=== PATIENT | male | born 1940 | race Caucasian/White ===

== ENCOUNTER → 2016-08-20 | Outpatient (CLI) | payer OTHER ==
[~2016-08-20] MED LIST: GADAVIST IV PRN; LEVO-217 PO; LISI1TAB3 PO; LOVASTATIN PO; MELO7.5T5 PO; MOME50SP5; MULT-506 PO; OMEG10007 PO; PRLSR20 PO; SNG10 PO
--- NOTE | 2016-08-20 09:57 | DIAGNOSTIC IMAGING REPORT ---
MRI brain combination BRAIN COMBO FOR IAC CLINICAL HISTORY: J32.9 Chronic sinusitis ASYMMETRIC RIGHT GREATER THAN LEFT SENSOR asymmetric hearing loss TECHNIQUE: Multi axial acquisition pre and post gadolinium enhancement COMPARISON STUDY: 07/17/2008 FINDINGS: Diffusion-weighted images are negative for an acute ischemic event. Signal characteristics of the cerebellar as well as cerebral hemispheres are unremarkable. 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 There are no new or interval findings. No significant postcontrast enhancement IMPRESSION: Negative study. No change from the prior exam. Electronically signed by: Willie Clark M.D. 08/20/2016 9:56 AM Dictated Date/Time: 08/20/2016 9:51 AM
== END | disposition home or self-care (01) ==
LOC: C.MRIBC 08:13
DX: J32.9 Chronic sinusitis, unspecified (principal)

== ENCOUNTER → 2016-09-01 | Outpatient (CLI) | payer OTHER ==
[~2016-09-01] VITALS: Ht 179.1 cm; Wt 103.5 kg
[~2016-09-01] MED LIST changes: -GADAVIST IV PRN
[2016-09-01 13:48] VITALS: BP 124/68; PULSE 68; Ht 179.1 cm; Wt 103.5 kg
== END | disposition home or self-care (01) ==
LOC: C.NEUR 12:50
PROVIDERS: ATTEND Internal Medicine Pulmonary Disease
DX: G47.33 Obstructive sleep apnea (adult) (pediatric) (principal)

== ENCOUNTER 2024-07-22 22:24 | Inpatient (IN) ==
[2024-07-22 23:45] LABS: Basophils # (auto) 0.04 K/uL (0.00-0.20); Basophils % (auto) 0.4 %; Eosinophils # (auto) 0.03 K/uL (0.00-0.50); Eosinophils % (auto) 0.3 %; Hemoglobin 11.3 g/dl (14.0-18.0); Immature Granulocytes # (auto) 0.07 K/uL (0.01-0.20); Immature Granulocytes % (auto) 0.7 %; Lymphocytes # (auto) 0.75 K/uL (1.20-3.40); Lymphocytes % (auto) 7.6 %; Mean Corpuscular Hemoglobin 27.2 pg (25.0-34.0); Mean Corpuscular Hgb Conc 32.3 g/dL (32.0-36.0); Mean Corpuscular Volume 84.1 fL (80.0-100.0); Mean Platelet Volume 9.9 fL (9.4-12.4); Monocytes # (auto) 0.68 K/uL (0.11-0.59); Monocytes % (auto) 6.9 %; Neutrophils # (auto) 8.29 K/uL (1.40-6.50); Neutrophils % (auto) 84.1 %; Platelet Count 323 K/uL (130-400); RDW Coefficient of Variation 13.9 % (11.5-14.5); RDW Standard Deviation 43.1 fL (36.4-46.3); Red Blood Count 4.16 M/uL (4.70-6.10); White Blood Count 9.86 K/ul (4.8-10.8)
[2024-07-22 23:50] LABS: Albumin Globulin Ratio 0.8 (0.9-2); Albumin Level 3.5 gm/dl (3.4-5.0); BUN Creatinine Ratio 19.7 (10-20); Bilirubin,Total 0.5 mg/dl (0.2-1.0); Calcium 9.6 mg/dl (8.6-10.3); Creatinine Clr Calc Pharmacy 49.9 ml/min; Globulin 4.3 gm/dl (2.5-4.0); Total Protein 7.8 gm/dl (6.0-8.3)
[2024-07-23 00:05] LABS: Thyroid Stimulating Hormone 4.058 uIu/ml (0.300-4.500)
[2024-07-23 00:15] LABS: Appearance Urine Clear (Clear); Bacteria Urine Automated None Seen (None Seen); Bilirubin Urine Negative (Negative); Blood Urine Negative (Negative); Color Urine Dark Yellow; Epithelial Cell Urine Auto 0-2 /hpf (0-2); Glucose Urine UA Negative (Negative); Ketones Urine Trace (Negative); Leukocyte Esterase Urine Negative (Negative); Mucus Urine Present (None Prsent); Nitrite Urine Negative (Negative); Protein Urine 3+ (Negative); RBC Urine Automated 0-2 /hpf (0-2); Specific Gravity Urine 1.022 (1.000-1.030); Urobilinogen Urine Negative (Negative); WBC Urine Automated 0-5 /hpf (0-5)
[2024-07-23] MEDS: SODIUM CHLORIDE 0.9% 500 ML IV ONE (00:36)
--- NOTE | 2024-07-23 00:48 | Emergency Department Note ---
Impression & Plan Generalized weakness, Altered mental status, Acute hyponatremia admit to the [facility] ED Provider Note NAME: PRADIP CUNNINGHAM AGE: 83 SEX: Male INFORMANT: Patient and his daughter ED PROVIDER(S): Brittney Solano DO CHIEF COMPLAINT: generalized weakness, confusion and right lower extremity weakness PLAN: Disposition: admit to the [facility] MEDICAL DECISION MAKING: this is an 83-year-old male patient who presents to the emergency department with multiple different complaints. the patient has been having episodes of generalized weakness over the past couple of weeks that seem to have increased in frequency. Family also describes episodes of confusion/altered mental status. The daughter explains that the patient was having some difficulty ambulating tonight and was dragging his right foot. This resolved at the house prior to coming to the emergency department. The patient did undergo MRI of the brain yesterday which was unremarkable except for a diagnosis of mastoiditis for which she was started on Augmentin and steroids. Laboratory studies revealed no leukocytosis. Hemoglobin was 11.3. Hematocrit was 35. Sodium was low at 130. Chloride 93. BUN 25 and creatinine was normal. Glucose was 186. Lyme testing was negative. Urinalysis revealed trace ketones with 3+ protein. Patient's neurological exam was unremarkable. He does have chronic right- sided facial droop from when he was a child. He did have some ulcerations noted on his tongue which are painful for him. His mental status seem to be clear at this time. I am concerned about the patient is generalized weakness and his risk of falling. This may be secondary to the drop in sodium. I discussed the case with the [facility]ist and they will evaluate for further inpatient care. Care/management discussed with: security developer and [facility] Triage Nursing notes: reviewed and agree with them. Vital Signs: reviewed and remarkable for Hypertension Additional History obtained from: patient's and daughter who are at the bedside Chronic Medical/Social Conditions affecting care: Parkinson's-like symptoms diagnosed by neurology sometime ago; recently diagnosed mastoiditis for which the patient is taking Augmentin and steroids Prior/ Outside/ External records reviewed: reviewed recent MRI of the brain which was performed 2 days ago and diagnosed mastoiditis Differential Diagnosis: Lyme disease, dehydration, hyponatremia, intracranial process, seizure Diagnostics, independently interpreted by me: ECG: normal sinus rhythm at a rate of 69 with PACs. There is no ST segment elevation or signs of ischemia. There is no ectopy. Cardiac Monitoring: normal sinus rhythm at a rate of 86 HPI: 83 year old Male arrives for evaluation of altered mental status and weakness. he patient has been having episodes of generalized weakness over the past couple of weeks that seem to have increased in frequency. Family also describes episodes of confusion/altered mental status. The daughter explains that the patient was having some difficulty ambulating tonight and was dragging his right foot. This resolved at the house prior to coming to the emergency department. The patient did undergo MRI of the brain yesterday which was unremarkable except for a diagnosis of mastoiditis for which she was started on Augmentin and steroids. PAST MEDICAL HISTORY: See Below, PAST SURGICAL HISTORY: See Below, SOCIAL HISTORY: See Below, HOME MEDICATIONS: see list ALLERGIES: see list VITALS: See Below PHYSICAL EXAMINATION: HEENT: Head - normocephalic and atraumatic. Pupils are equal, round, and reactive to light. Extraocular eye muscles are intact and sclera are anicteric. Ears - bilaterally patent canals with noninjected tympanic membranes and no evidence of hemotympanum. Nose - moist nasal mucosa without discharge. Mouth - moist buccal mucosa. Oropharynx is nonerythematous and there is no tonsillar exudate or edema noted. There were ulcerations noted on the patient's tongue. No obvious evidence of thrush. Neck: Supple; no JVD, nuchal rigidity, cervical lymphadenopathy, or auscultated bruits. Heart: Regular rate and rhythm. There is a normal S1 and S2 with no murmurs, clicks, or gallops appreciated. Lungs: Clear to auscultation bilaterally with no wheezes, rales, or rhonchi. Abdomen: Soft, completely nontender, nondistended, with good bowel sounds. There are no palpable pulsatile masses or hepatosplenomegaly. There is no guarding, rigidity, or rebound noted. Extremities: No evidence of cyanosis, clubbing, or edema. There are easily palpable peripheral pulses. Neuro:The patient is awake and alert, oriented to day, time, and place. Muscle strength is 5/5 in all 4 extremities. The patient has equal sustainable development policy analyst strength and equal pedal push and pull. There are no cerebellar signs. Emergency Department course: Pt Was evaluated in room B12. A complete history and physical was performed. IV lock was initiated and labs were drawn as above. Order was placed for continuous cardiac monitoring. The patient was in a normal sinus rhythm at a rate of 86. A twelve-lead EKG was obtained as described above. A urine was obtained and showed no signs of infection. The patient was given IV normal saline solution. I discussed the case with the [facility] Hospitalist and they will evaluate for further inpatient care. Past Med/Surg History Problem List (Updated 07/23/24 @ 08:17 by Brittney Solano DO) Acute hyponatremia (Acute) Altered mental status (Acute) Generalized weakness (Acute) Proteinuria Generalized weakness Dysarthria Parkinsonism Chronic sinusitis, unspecified (Chronic) Vascular parkinsonism Cerebrovascular disease Headache Presbylarynges (Chronic) Urinary symptom or sign Chronic serous otitis media Obstructive sleep apnea Allergic rhinitis Perforated nasal septum BPH (benign prostatic hyperplasia) Enlarged prostate with lower urinary tract symptoms (LUTS) (Acute) Nocturnal hypoxemia Hypertension Skin cancer Dysfunction of left eustachian tube Sensorineural hearing loss (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 Gait disturbance Diabetic nephropathy Hypovitaminosis D Mixed hyperlipidemia due to type 2 diabetes mellitus Weight disorder Memory loss Mild cognitive impairment Medical History ETD (eustachian tube dysfunction) Dysfunction of right eustachian tube Hallux valgus (acquired), left foot Acquired hallux valgus of right foot Hammertoe of left foot Acquired hammer toe of right foot Diabetes mellitus with diabetic polyneuropathy Surgical History S/P cataract surgery History of transurethral resection of prostate History of appendectomy Myringotomy tube status S/P T&A (status post tonsillectomy and adenoidectomy) History of uvulopalatopharyngoplasty H/O sinus surgery History of prostate surgery H/O shoulder surgery Family History Mother Rheumatic fever Heart disease Heart murmur Father Cerebral artery occlusion Brother Hearing loss Heart murmur Lung disease Other Coronary heart disease No family history of adverse response to anesthesia No family history of bleeding disorder Social History Smoking Status: Never smoker Hx Alcohol Use: No Hx Substance Use: No Preferred Language: Lithuanian Hearing Ability: Hard of Hearing Rock Wool Insulator Required: No Beliefs That Will Affect Care: Orthodox marital status: Current Living Situation: Spouse current occupational status: retired Other Information That Helps Us Care for You: No ([employer]LE[employer]) Feels Safe at Home: Yes Assistive Devices: Glasses, Hearing Aid - Bilateral and Walker Allergies Allergies Allergy/AdvReac Type Severity Reaction Status Date / Time house dust mite Allergy Verified 07/15/24 15:33 No Known Drug Allergies Allergy Verified 07/15/24 15:33 tree and shrub pollen Allergy Verified 07/15/24 15:33 Home Meds Home Medications Medication Instructions Recorded Confirmed aspirin 81 mg tablet,delayed 81 mg PO DAILY 03/01/19 07/23/24 release ketoconazole 2 % topical cream 1 applic topical DAILY PRN Skin 09/24/21 07/23/24 Irritation multivitamin (Multiple Vitamins 1 tab PO DAILY 09/24/21 07/23/24 tablet) lisinopril 10 mg tablet 10 mg PO DAILY 09/27/21 07/23/24 fluticasone propionate 50 1 spray intranasal DAILY PRN 09/12/22 07/23/24 mcg/actuation nasal Congestion spray,suspension sitagliptin phosphate 50 mg tablet 50 mg PO DAILY 02/02/24 07/23/24 (Januvia) amoxicillin-pot clavulanate 1 dose PO BID 07/15/24 07/23/24 [Augmentin] famotidine 40 mg tablet 40 mg PO HS 07/23/24 07/23/24 omega-3 fatty acids 1,000 mg 2,000 mg PO DAILY 07/23/24 07/23/24 capsule Previous Rx's Medication Instructions Recorded donepezil 10 mg tablet 10 mg PO HS #90 tabs 03/07/24 ipratropium bromide 42 mcg (0.06 2 spray intranasal TID #15 mL 05/12/24 %) nasal spray azelastine 137 mcg (0.1 %) nasal 2 spray intranasal BID #30 mL 06/08/24 spray Results & Data (ED) Vital Signs Vital Signs - 24 hr 07/22/24 22:31 07/22/24 22:41 07/22/24 22:45 Temperature 36.8 C Temperature Source Temporal Artery Scan Pulse Rate 81 73 70 Pulse Rhythm Regular Pulse Strength Normal Respiratory Rate 19 18 Respiratory Effort / Characteristics Non-Labored Spontaneous Respiratory Depth Normal Respiratory Pattern Regular Blood Pressure 159/82 H 180/81 H Blood Pressure Mean 107 114 Blood Pressure Position Sitting Pulse Oximetry 98 96 Oxygen Delivery Method Room Air Sepsis Recent Fever Within 48 Hours No Sepsis New/Unexplained Change in Mental Status N/A Sepsis Action Taken by Nursing No Action Required 07/22/24 22:50 07/22/24 23:00 07/22/24 23:27 Temperature Temperature Source Pulse Rate 70 75 Pulse Rhythm Pulse Strength Respiratory Rate 17 20 Respiratory Effort / Characteristics Respiratory Depth Respiratory Pattern Blood Pressure 171/78 H 181/76 H Blood Pressure Mean 109 111 Blood Pressure Position Pulse Oximetry 98 97 98 Oxygen Delivery Method Room Air Sepsis Recent Fever Within 48 Hours Sepsis New/Unexplained Change in Mental Status Sepsis Action Taken by Nursing 07/22/24 23:32 07/23/24 00:06 07/23/24 00:30 Temperature Temperature Source Pulse Rate 75 78 63 Pulse Rhythm Regular Pulse Strength Respiratory Rate 18 20 19 Respiratory Effort / Characteristics Respiratory Depth Respiratory Pattern Blood Pressure 176/80 H 171/83 H Blood Pressure Mean 112 112 Blood Pressure Position Pulse Oximetry 98 96 Oxygen Delivery Method Room Air Sepsis Recent Fever Within 48 Hours Sepsis New/Unexplained Change in Mental Status Sepsis Action Taken by Nursing 07/23/24 00:54 07/23/24 01:00 07/23/24 01:36 Temperature Temperature Source Pulse Rate 78 65 Pulse Rhythm Pulse Strength Respiratory Rate 25 H 17 Respiratory Effort / Characteristics Respiratory Depth Respiratory Pattern Blood Pressure 172/82 H 172/82 H 176/88 H Blood Pressure Mean 112 127 117 Blood Pressure Position Pulse Oximetry 95 96 Oxygen Delivery Method Sepsis Recent Fever Within 48 Hours Sepsis New/Unexplained Change in Mental Status Sepsis Action Taken by Nursing 07/23/24 02:09 07/23/24 02:33 Temperature Temperature Source Pulse Rate 66 65 Pulse Rhythm Pulse Strength Respiratory Rate 18 24 Respiratory Effort / Characteristics Respiratory Depth Respiratory Pattern Blood Pressure 178/74 H 168/80 H Blood Pressure Mean 108 109 Blood Pressure Position Pulse Oximetry 96 96 Oxygen Delivery Method Sepsis Recent Fever Within 48 Hours Sepsis New/Unexplained Change in Mental Status Sepsis Action Taken by Nursing Laboratory Data 07/23/24 05:18 07/23/24 05:18 Lab Results 01/24/25 01/24/25 Range/Units 23:00 23:34 WBC 9.86 (4.8-10.8) K/ul RBC 4.16 L (4.70-6.10) M/uL Hgb 11.3 L (14.0-18.0) g/dl Hct 35.0 L (42.0-52.0) % MCV 84.1 (80.0-100.0) fL MCH 27.2 (25.0-34.0) pg MCHC 32.3 (32.0-36.0) g/dL RDW Std Deviation 43.1 (36.4-46.3) fL RDW Coeff of Rosy 13.9 (11.5-14.5) % Plt Count 323 (130-400) K/uL MPV 9.9 (9.4-12.4) fL Immature Gran % (Auto) 0.7 % Neut % (Auto) 84.1 % Lymph % (Auto) 7.6 % [place] % (Auto) 6.9 % Eos % (Auto) 0.3 % Baso % (Auto) 0.4 % Neut # (Auto) 8.29 H (1.40-6.50) K/uL Lymph # (Auto) 0.75 L (1.20-3.40) K/uL [place] # (Auto) 0.68 H (0.11-0.59) K/uL Eos # (Auto) 0.03 (0.00-0.50) K/uL Baso # (Auto) 0.04 (0.00-0.20) K/uL Immature Gran # (Auto) 0.07 (0.01-0.20) K/uL Sodium 130 L (136-145) mmol/L Potassium 5.0 (3.5-5.1) mmol/L Chloride 93 L (98-107) mmol/L Carbon Dioxide 30 (21-32) mmol/L Anion Gap 7 (3-11) BUN 25 H (6-23) mg/dl Creatinine 1.27 (0.6-1.4) mg/dl Est Cr Clr Drug Dosing 49.9 ml/min eGFR 56.06 BUN/Creatinine Ratio 19.7 (10-20) Glucose 186 H (70-99(Fasting)) mg/dl Calcium 9.6 (8.6-10.3) mg/dl Phosphorus 2.8 (2.5-4.9) mg/dl Magnesium 1.8 (1.7-2.4) mg/dl Total Bilirubin 0.5 (0.2-1.0) mg/dl AST 32 (13-39) U/L ALT 50 (7-52) U/L Alkaline Phosphatase 135 H (34-104) U/L Total Protein 7.8 (6.0-8.3) gm/dl Albumin 3.5 (3.4-5.0) gm/dl Globulin 4.3 H (2.5-4.0) gm/dl Albumin/Globulin Ratio 0.8 L (0.9-2) TSH 4.058 (0.300-4.500) uIu/ml Urine Color Dark Yellow Urine Appearance Clear (Clear) Urine pH 6.0 (4.5-7.5) Ur Specific [place] 1.022 (1.000-1.030) Urine Protein 3+ H (Negative) Urine Glucose (UA) Negative (Negative) Urine Ketones Trace H (Negative) Urine Blood Negative (Negative) Urine Nitrite Negative (Negative) Urine Bilirubin Negative (Negative) Urine Urobilinogen Negative (Negative) Ur Leukocyte Esterase Negative (Negative) Urine WBC (Auto) 0-5 (0-5) /hpf Urine RBC (Auto) 0-2 (0-2) /hpf U Hyaline Cast (Auto) 6-10 H (0-2) /lpf U Epithel Cells (Auto) 0-2 (0-2) /hpf Urine Bacteria (Auto) None Seen (None Seen) Urine Mucus Present A (None Prsent) Lyme Disease Screen Negative (Negative) Administered Medications Discontinued Medications Sodium Chloride (Nss) 500 mls @ 999 mls/hr IV .Q31M ONE Stop: 07/23/24 01:00 Last Infusion: 07/23/24 01:08 Dose: Infused Documented By: Admin: 07/23/24 00:36 Dose: 999 mls/hr Documented By: RICHIE Imaging Data Radiologist's Impression: Chest X-Ray 07/22/24 23:32 Exam(s): XR CXR 1 VIEW EXAM: XR Chest, 1 View CLINICAL HISTORY: Reason for exam: weakness. TECHNIQUE: Frontal view of the chest. COMPARISON: Chest radiograph on 07/06/2024 FINDINGS: Hardware: None. Lungs/pleura: Mild bibasilar atelectasis. No focal consolidation. No pleural effusion or pneumothorax. Heart/mediastinum: Atherosclerotic calcifications of the aorta. No cardiomegaly. Soft tissues: Unremarkable. Bones: No acute fracture.. Degenerative changes of the spine. Upper abdomen: Normal. IMPRESSION: No acute disease identified. Electronically signed by: Kenyetta Mao M.D. 07/23/24 01:04 AM Discharge Plan Visit Data Chief Complaint: Weakness Stated Complaint: WEAKNESS,HARD TIME AMBULATING ED Provider: Brittney Solano Discharge Problem: Generalized weakness, Altered mental status, Acute hyponatremia Patient Disposition: Admitted As Inpatient Discharge Instructions Interventions: ED Discharge Assessment Last Done: 07/23/24 03:56
--- NOTE | 2024-07-23 01:05 | XRay Report ---
Exam(s): XR CXR 1 VIEW EXAM: XR Chest, 1 View CLINICAL HISTORY: Reason for exam: weakness. TECHNIQUE: Frontal view of the chest. COMPARISON: Chest radiograph on 07/06/2024 FINDINGS: Hardware: None. Lungs/pleura: Mild bibasilar atelectasis. No focal consolidation. No pleural effusion or pneumothorax. Heart/mediastinum: Atherosclerotic calcifications of the aorta. No cardiomegaly. Soft tissues: Unremarkable. Bones: No acute fracture.. Degenerative changes of the spine. Upper abdomen: Normal. IMPRESSION: No acute disease identified. Electronically signed by: Kenyetta Mao M.D. 07/23/24 01:04 AM
[2024-07-23 02:50] LABS: Magnesium 1.8 mg/dl (1.7-2.4); Phosphorus 2.8 mg/dl (2.5-4.9)
--- NOTE | 2024-07-23 02:50 | History & Physical Report ---
Date of Service July 23, 2024 Assessment & Plan (1) Generalized weakness: (2) Proteinuria: (3) Chronic sinusitis, unspecified: (4) Parkinsonism: (5) Vascular parkinsonism: (6) Chronic serous otitis media: (7) Obstructive sleep apnea: (8) Allergic rhinitis: (9) BPH (benign prostatic hyperplasia): (10) Enlarged prostate with lower urinary tract symptoms (LUTS): (11) Hypertension: (12) Sensorineural hearing loss (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: (13) Diabetic nephropathy: (14) Mild cognitive impairment: Plan 83-year-old male with a history of vascular parkinsonism, mild cognitive impairment, HTN, T2DM, JANET, allergic rhinitis, chronic sinusitis, chronic serous otitis media, LUTS, and sensorineural hearing loss presenting for subacute generalized weakness, waxing and waning confusion that has progressed over past 6 weeks: #Generalized Weakness: Although fairly quick decline, suspect most likely age-related process. No immediate evidence of acute process that would explain history. - PT/OT eval and tx - suspect patient will require placement - Fall precautions - ?tick borne illness, unlikely as patient afebrile, platelet count WNL, no transaminitis - Lyme screen negative, will check for Babesia and Anaplasma for completeness - AM CBC, BMP #Hyponatremia,mild: Na 130 on admission S/p 1L NSS - repeat AM BMP #Proteinuria: UA on admission with 3+ proteinuria ?diabetic nephropathy - less likely with outpatient UA 06/27/24 with only trace proteinuria Check urine protein/creatinine ratio Oral ulcers vs Glossitis: Unclear etiology for lingual changes, ?B12 deficiency - check B12 level Magic mouthwash prn #T2DM: Last A1c 03/2024 6.7% Hold home Januvia BSG check ACHS Insulin sliding scale Chronic Conditions: Chronic Sinusitis: continue home Augmentin and Flonase HTN: Continue home Lisinopril HLD: Continue omega 3 supplement JANET: CPAP PRN ordered Allergic Rhinitis: Continue home Flonase, Ipratropium nasal spray MCI: continue Donepezil Dispo: Admit to med-surg Diet: CC VTE ppx: Heparin DNR/DNI History of Present Illness Primary Care Provider: Acosta West MD 83-year-old male with a history of vascular parkinsonism, mild cognitive impairment, HTN, T2DM, JANET, allergic rhinitis, chronic sinusitis, chronic serous otitis media, LUTS, and sensorineural hearing loss presenting for subacute generalized weakness, waxing and waning confusion that has progressed over past 6 weeks. Patient lives independently with , did not need help with ADLs and ambulated independently until 6 weeks ago. Patient has had worsening generalized weakness but family noticed that he was dragging his right leg and had difficulty supporting his own weight today. Denies any recent falls. Denies recent illness, fevers/chills, chest pain, SOB, urinary sx. Of note, patient has extensive history of ENT problems, is currently taking Augmentin for chronic sinusitis in addition to Flonase and Azelastine. Patient also follows with neurology, recent MRI consistent with possible bilateral mastoiditis. Patient reports fairly new oral pain, with noticeable inflammation/ulceration of the mouth, otherwise denies pain. Has history of tick bites. ED Course: Labs largely unremarkable apart from UA with 3+ protein (previous UA 06/27 with only trace proteinuria), Na 130 S/p 1L bolus NSS Lyme screen negative. CXR negative. No leukocystosis. Allergies Allergy/AdvReac Type Severity Reaction Status Date / Time house dust mite Allergy Verified 07/15/24 15:33 No Known Drug Allergies Allergy Verified 07/15/24 15:33 tree and shrub pollen Allergy Verified 07/15/24 15:33 Home Medications Medication Instructions Recorded Confirmed Type aspirin 81 mg tablet,delayed 81 mg PO DAILY 03/01/19 07/23/24 History release ketoconazole 2 % topical cream 1 applic topical DAILY PRN Skin 09/24/21 07/23/24 History Irritation multivitamin (Multiple Vitamins 1 tab PO DAILY 09/24/21 07/23/24 History tablet) lisinopril 10 mg tablet 10 mg PO DAILY 09/27/21 07/23/24 History fluticasone propionate 50 1 spray intranasal DAILY PRN 09/12/22 07/23/24 History mcg/actuation nasal Congestion spray,suspension sitagliptin phosphate 50 mg tablet 50 mg PO DAILY 02/02/24 07/23/24 History (Januvia) donepezil 10 mg tablet 10 mg PO HS #90 tabs 03/07/24 07/23/24 Rx ipratropium bromide 42 mcg (0.06 2 spray intranasal TID #15 mL 05/12/24 07/23/24 Rx %) nasal spray azelastine 137 mcg (0.1 %) nasal 2 spray intranasal BID #30 mL 06/08/24 07/23/24 Rx spray amoxicillin-pot clavulanate 1 dose PO BID 07/15/24 07/23/24 History [Augmentin] famotidine 40 mg tablet 40 mg PO HS 07/23/24 07/23/24 History omega-3 fatty acids 1,000 mg 2,000 mg PO DAILY 07/23/24 07/23/24 History capsule Past Med/Surg History Problem List (Updated 07/23/24 @ 12:19 by Nick Rivera MD) Abnormal x-ray of bone Aphthous stomatitis Acute hyponatremia (Acute) Altered mental status (Acute) Generalized weakness (Acute) Proteinuria Generalized weakness Dysarthria Parkinsonism Chronic sinusitis, unspecified (Chronic) Vascular parkinsonism Cerebrovascular disease Headache Presbylarynges (Chronic) Urinary symptom or sign Chronic serous otitis media Obstructive sleep apnea Allergic rhinitis Perforated nasal septum BPH (benign prostatic hyperplasia) Enlarged prostate with lower urinary tract symptoms (LUTS) (Acute) Nocturnal hypoxemia Hypertension Skin cancer Dysfunction of left eustachian tube Sensorineural hearing loss (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 Gait disturbance Diabetic nephropathy Hypovitaminosis D Mixed hyperlipidemia due to type 2 diabetes mellitus Weight disorder Memory loss Mild cognitive impairment Medical History ETD (eustachian tube dysfunction) Dysfunction of right eustachian tube Hallux valgus (acquired), left foot Acquired hallux valgus of right foot Hammertoe of left foot Acquired hammer toe of right foot Diabetes mellitus with diabetic polyneuropathy Surgical History S/P cataract surgery History of transurethral resection of prostate History of appendectomy Myringotomy tube status S/P T&A (status post tonsillectomy and adenoidectomy) History of uvulopalatopharyngoplasty H/O sinus surgery History of prostate surgery H/O shoulder surgery Family History Mother Rheumatic fever Heart disease Heart murmur Father Cerebral artery occlusion Brother Hearing loss Heart murmur Lung disease Other Coronary heart disease No family history of adverse response to anesthesia No family history of bleeding disorder Social History Smoking Status: Never smoker Hx Alcohol Use: No Hx Substance Use: No Preferred Language: Spanish Hearing Ability: Hard of Hearing Waterproofing Mixer Required: No Beliefs That Will Affect Care: Buddhism marital status: Current Living Situation: Spouse current occupational status: retired Other Information That Helps Us Care for You: No (HOOPA) Feels Safe at Home: Yes Assistive Devices: Glasses, Hearing Aid - Bilateral and Walker Review of Systems Review of Systems: as per HPI Physical Exam Physical Exam: Constitutional: no acute distress HEENT: NCAT, no conjunctival injection, tongue appears generally inflamed with superficial ulcerations scattered over tongue surface, oropharynx clear. CV: RRR,extremities well-perfused, no LE edema Resp: Lungs CTABL, no increased work of breathing GI: nondistended MSK: no gross deformities, 5/5 strength in bilateral upper and lower extremities Skin: warm, dry, no rash appreciated Neuro: alert, oriented, appreciable dysarthria (baseline), otherwise no focal neuro deficits Results & Data Results & Data Vital Signs (Past 12 Hours) Vital Signs Temp Pulse Resp BP Pulse Ox O2 Del Method 07/23/24 02:33 65 24 168/80 H 96 07/23/24 02:09 66 18 178/74 H 96 07/23/24 01:36 65 17 176/88 H 96 07/23/24 01:00 172/82 H 07/23/24 00:54 78 25 H 172/82 H 95 07/23/24 00:30 63 19 171/83 H 96 07/23/24 00:06 78 20 176/80 H 07/22/24 23:32 75 18 98 Room Air 07/22/24 23:27 75 20 181/76 H 98 07/22/24 23:00 70 17 171/78 H 97 07/22/24 22:50 98 Room Air 07/22/24 22:45 70 18 180/81 H 96 07/22/24 22:41 73 07/22/24 22:31 36.8 C 81 19 159/82 H 98 Room Air Code Status & VTE Plan VTE Prophylaxis Plan VTE Prophylaxis will be ordered: Yes Supervising Physician Co-Signing Physician Notes Patient seen and examined, chart reviewed, case discussed with Dr. Mcgee and I agree with the assessment and plan as above. In brief, patient is an 83yo male presenting with progressive generalized weakness. Family notes a sharp decline over the last 6 weeks. No report of fever, chills, cough, SOB, urinary symptoms. No new medications. No recent tick bites but patient did have tick exposure over the summer. On exam he is resting comfortably, slow to answer questions, NAD Skin - no rash HEENT - MMM, Neck supple Heart - +S1/S2, regular Lungs - CTA Abd - soft, NT/ND Ext - warm, well perfused Labs and images reviewed Assessment/Plan - 83yo with generalized weakness, episodes of confusion and functional decline over the last 6 weeks. Etiology unclear at this time - no obvious source thus far on workup. Will check Anaplasmosis/Babesiosis - patient endorses tick bites over the summer. Check urine protein and Cr Remainder as above Resident Activity Tracking Resident Involvement: Resident Care Provided Care Provided: Adult Hospital Medicine (3) Chronic sinusitis, unspecified Sinusitis location: unspecified location Qualified Code(s): J32.9 - Chronic sinusitis, unspecified
[2024-07-23] MEDS ORDERED: POLYETHYLENE (MIRALAX) 17 GM PACK PO PRN (04:11)
[2024-07-23] MEDS ORDERED: ONDANSETRON INJ 2 MG/ML 2 ML VIAL IV PRN (04:11)
[2024-07-23] MEDS ORDERED: CARBOHYDRATES FOR HYPOGLYCEMIA PO PRN ×2 (04:11→08:33)
[2024-07-23] MEDS ORDERED: GLUCOSE 10 TAB/TUBE PO PRN ×2 (04:11→08:33)
[2024-07-23] MEDS ORDERED: ALUMINUM/MAGNESIUM SUSP 30 ML UDC PO PRN (04:11)
[2024-07-23] MEDS ORDERED: DEXTROSE 50% 50 ML SYRINGE IV PRN ×2 (04:11→08:33)
[2024-07-23] MEDS ORDERED: FIRST - Mouthwash BLM 5 ML UDP PO PRN (04:11)
[2024-07-23] MEDS ORDERED: GLUCOSE 40% GEL 15 GM TUBE PO PRN ×2 (04:11→08:33)
[2024-07-23] MEDS ORDERED: GLUCAGON FOR INJ 1 MG VIAL SQ PRN ×2 (04:11→08:33)
[2024-07-23 05:50] LABS: Creatinine Urine Random 35.3 mg/dl; Protein Creatinine Ratio Urine 1.5 (0-0.2); Total Protein Urine Random 52.4 mg/dl (0-11.9)
[2024-07-23 06:13] LABS: Basophils # (auto) 0.03 K/uL (0.00-0.20); Basophils % (auto) 0.3 %; Eosinophils # (auto) 0.06 K/uL (0.00-0.50); Eosinophils % (auto) 0.6 %; Hematocrit (blood only) 35.2 % (42.0-52.0); Hemoglobin 11.5 g/dl (14.0-18.0); Immature Granulocytes # (auto) 0.04 K/uL (0.01-0.20); Immature Granulocytes % (auto) 0.4 %; Lymphocytes # (auto) 0.97 K/uL (1.20-3.40); Lymphocytes % (auto) 9.6 %; Mean Corpuscular Hemoglobin 27.1 pg (25.0-34.0); Mean Corpuscular Hgb Conc 32.7 g/dL (32.0-36.0); Mean Platelet Volume 10.5 fL (9.4-12.4); Monocytes # (auto) 0.76 K/uL (0.11-0.59); Monocytes % (auto) 7.5 %; Neutrophils # (auto) 8.25 K/uL (1.40-6.50); Neutrophils % (auto) 81.6 %; Platelet Count 298 K/uL (130-400); RDW Coefficient of Variation 14.1 % (11.5-14.5); RDW Standard Deviation 42.2 fL (36.4-46.3); Red Blood Count 4.24 M/uL (4.70-6.10); White Blood Count 10.11 K/ul (4.8-10.8)
[2024-07-23 06:30] LABS: BUN Creatinine Ratio 18.9 (10-20); Calcium 8.9 mg/dl (8.6-10.3); Creatinine Clr Calc Pharmacy 54.5 ml/min; Potassium 4.3 mmol/L (3.5-5.1)
[2024-07-23] MEDS: INSULIN ASPART PER UNIT CHARGE SC SCH ×2 (08:57→12:46)
[2024-07-23] MEDS: IPRATROPIUM BROMIDE NASAL SPRAY 0.06% 15ML PRN (09:19)
[2024-07-23] MEDS: FLUTICASONE PROPIONATE NA SPR 16 GM BTL PRN (09:19)
[2024-07-23] MEDS: lisinopril 10 MG TAB PO SCH (09:20)
[2024-07-23] MEDS: OMEGA-3 (PURIFIED FISH OIL) 1 GM CAP PO SCH (09:20)
[2024-07-23] MEDS: ASPIRIN 81 MG ECTAB PO SCH (09:20)
[2024-07-23] MEDS: MULTIVITAMIN TAB PO SCH (09:20)
[2024-07-23] MEDS: AMOXICILLIN/CLAVULANATE 875 MG TAB PO SCH (09:20)
[2024-07-23] MEDS: HEPARIN SOD 5,000 UNIT/0.5 ML VIAL SQ SCH (09:22)
--- NOTE | 2024-07-23 11:23 | Electrocardiogram Report ---
Test Reason : Blood Pressure : */* mmHG Vent. Rate : 69 BPM Atrial Rate : 69 BPM P-R Int : 144 ms QRS Dur : 92 ms QT Int : 390 ms P-R-T Axes : 44 14 68 degrees QTcB Int : 417 ms Sinus rhythm with Premature atrial complexes Poor R-wave progression consider lead placement but cannot rule out anterior LA Abnormal ECG When compared with ECG of 15-Apr-2011 10:37, No significant change was found Confirmed by Milagros Cm ([id number]) on 07/23/2024 11:23:07 AM Referred By: REFERRED SELF Confirmed By: Milagros Cm
--- NOTE | 2024-07-23 11:26 | Electrocardiogram Report ---
Test Reason : Blood Pressure : */* mmHG Vent. Rate : 109 BPM Atrial Rate : 89 BPM P-R Int : * ms QRS Dur : 146 ms QT Int : 376 ms P-R-T Axes : * 41 58 degrees QTcB Int : 506 ms Poor data quality, interpretation may be adversely affected Atrial fibrillation with rapid ventricular response with premature ventricular or aberrantly conducte d complexes Non-specific intra-ventricular conduction block Abnormal ECG When compared with ECG of 22-Jul-2024 22:47, (unconfirmed) Atrial fibrillation has replaced Sinus rhythm Vent. rate has increased by 40 bpm QRS duration has increased QT has lengthened Confirmed by Milagros Cm (Dl) on 07/23/2024 11:26:23 AM Referred By: REFERRED SELF Confirmed By: Milagros Cm
--- NOTE | 2024-07-23 12:20 | Hospitalist Progress Note ---
Date of Service July 23, 2024 Assessment & Plan (1) Generalized weakness: Plan: May simply be age-related. OT and PT assessments requested. Tickborne disease workup ordered but no exposure (2) Aphthous stomatitis: Plan: Magic mouthwash ordered. (3) Abnormal x-ray of bone: Plan: Lytic lesion noted in pelvic area on x-ray. He denies any pain. Serum protein electrophoresis ordered (4) Parkinsonism: Plan: Stable. Continue current medical management Plan It appears he is going to need long-term placement. OT and PT assessments requested Admission and Anticipated Discharge Date Admission Date: July 23, 2024 Subjective Alert and oriented. No acute distress. Progressively worsening generalized weakness prompted his coming to the ED. Sodium is mildly low but he is asymptomatic. Serum osmolarity normal at 283. He does have a lytic lesion on x-ray in the pelvic area. Serum protein electrophoresis ordered and pending. Glucose is mildly elevated and sliding scale coverage has been adjusted. Lyme screen is negative. Babesiosis and anaplasmosis screens are pending. OT and PT ordered Review of Systems 2 Review of Systems: Constitutionalno fever or chills ENTno blurred vision, no double vision, no epistaxis, no sore throat Respiratoryno cough, no wheezing, no shortness of breath Cardiacno palpitations, no chest pain, no syncope Maged nausea, vomiting, diarrhea, melena, hematochezia GUno urinary retention, no urinary incontinence, no dysuria, no hematuria Musculoskeletalno joint pain, no muscle tenderness Skinno bruising, no rashes, no pruritus Neurogeneralized weakness. No focal deficits Psychno depression, no anxiety Physical Exam 2 Physical Exam: General-alert and oriented x3, no fever, no chills HEENT-head atraumatic and normocephalic, pupils equal and reactive to light, extraocular muscles intact Neck-no lymphadenopathy or thyromegaly, trachea midline Chest-clear to auscultation. No rales, wheezing or rhonchi Cardiac-regular rate and rhythm, normal S1 and S2 Abdomen-normal bowel sounds, no hepatosplenomegaly Extremities-no cyanosis, clubbing, or edema Neuro-cranial nerves II through XII intact, motor and sensory function within normal limits, strength symmetrical with generalized weakness, no focal deficits Psych-normal affect, normal mood Results & Data Results & Data Vital Signs (Past 12 Hours) Vital Signs Temp Pulse Pulse Resp BP BP Pulse Ox 07/23/24 07:39 36.9 C 87 18 154/61 H 94 07/23/24 04:46 07/23/24 04:11 36.7 C 100 H 16 159/72 H 93 07/23/24 03:31 65 20 123/85 96 07/23/24 03:00 74 20 172/75 H 95 07/23/24 02:33 65 24 168/80 H 96 07/23/24 02:09 66 18 178/74 H 96 07/23/24 01:36 65 17 176/88 H 96 07/23/24 01:00 172/82 H 07/23/24 00:54 78 25 H 172/82 H 95 07/23/24 00:30 63 19 171/83 H 96 O2 Del Method 07/23/24 07:39 Room Air 07/23/24 04:46 Room Air 07/23/24 04:11 Room Air 07/23/24 03:31 07/23/24 03:00 07/23/24 02:33 07/23/24 02:09 07/23/24 01:36 07/23/24 01:00 07/23/24 00:54 07/23/24 00:30 Laboratory Results 07/23/24 05:18 07/23/24 05:18 PG Care Time/CCT Total # of Minutes Spent Total Time Spent with Patient: Total time spent is greater than 50% in coordination of care (as documented) at patient's floor/unit and/or counseling patient: Coding Level of Care Code 77999 SUB INP/OBS CARE 3/50MIN Diagnoses Generalized weakness R53.1 Aphthous stomatitis K12.0 Abnormal x-ray of bone R93.7 Parkinsonism G20.C
[2024-07-23] MEDS: FIRST - Mouthwash BLM 5 ML UDP PO SCH (13:47)
[2024-07-23 17:50] LABS: T4 Free Thyroxine 1.16 ng/dl (0.61-1.60)
[2024-07-23] MEDS: AMPICILLIN/SULBACTAM SOD 3,000 MG/100 ML BAG IV SCH (18:05)
--- NOTE | 2024-07-23 19:42 | Billing Data ---
Date of Service July 23, 2024 Coding Level of Care Code 99690 INT INP/OBS CARE
[2024-07-23] MEDS: FAMOTIDINE 40 MG TABLET PO SCH (20:24)
[2024-07-23] MEDS: DONEPEZIL HCL 10 MG TAB PO SCH (20:24)
[2024-07-24 10:03] LABS: Basophils # (auto) 0.04 K/uL (0.00-0.20); Basophils % (auto) 0.5 %; Eosinophils # (auto) 0.06 K/uL (0.00-0.50); Eosinophils % (auto) 0.7 %; Hemoglobin 11.2 g/dl (14.0-18.0); Immature Granulocytes # (auto) 0.03 K/uL (0.01-0.20); Immature Granulocytes % (auto) 0.4 %; Lymphocytes # (auto) 0.85 K/uL (1.20-3.40); Lymphocytes % (auto) 10.5 %; Mean Corpuscular Hemoglobin 27.3 pg (25.0-34.0); Mean Corpuscular Hgb Conc 32.9 g/dL (32.0-36.0); Mean Corpuscular Volume 82.7 fL (80.0-100.0); Mean Platelet Volume 10.1 fL (9.4-12.4); Monocytes # (auto) 0.59 K/uL (0.11-0.59); Monocytes % (auto) 7.3 %; Neutrophils # (auto) 6.53 K/uL (1.40-6.50); Neutrophils % (auto) 80.6 %; Platelet Count 309 K/uL (130-400); RDW Coefficient of Variation 13.9 % (11.5-14.5); RDW Standard Deviation 41.7 fL (36.4-46.3); Red Blood Count 4.11 M/uL (4.70-6.10)
[2024-07-24 10:07] LABS: BUN Creatinine Ratio 17.7 (10-20); Calcium 9.2 mg/dl (8.6-10.3); Creatinine Clr Calc Pharmacy 46.6 ml/min; Potassium 4.3 mmol/L (3.5-5.1)
[2024-07-24] MEDS ORDERED: SITagliptin PHOSPHATE 25 MG TAB PO SCH (10:15)
--- NOTE | 2024-07-24 15:41 | Hospitalist Progress Note ---
Date of Service July 24, 2024 Assessment & Plan (1) Generalized weakness: Plan: Probably a consequence of acute infection. Supportive care. Treat mastoiditis. Obtain OT and PT evaluations (2) Mastoiditis: Plan: Seen on MRI scan. Continue Unasyn, day 2. ESR is markedly elevated as a consequence. (3) Aphthous stomatitis: Plan: Somewhat improved. Continue magic mouthwash. (4) Parkinsonism: Plan: Stable. Continue current medical management Plan It appears he is going to need rehab placement at discharge. OT and PT assessments requested Admission and Anticipated Discharge Date Admission Date: July 23, 2024 Subjective Easily awakened from sleep. He is alert and in no distress. Generalized weakness persists. Sed rate is markedly elevated but I suspect this is due to mastoiditis rather than PMR. Will continue parenteral Unasyn for now, day 2. Magic mouthwash ordered for aphthous glossitis. Sodium is mildly low and asymptomatic. Babesiosis and anaplasmosis PCR remain pending. Thyroid free T3 and free T4 are normal. Glucose 180 this morning, July 24. OT and PT assessments requested. It appears he will need placement for a while. Review of Systems 2 Review of Systems: Constitutionalno fever or chills ENTno blurred vision, no double vision, no epistaxis, no sore throat Respiratoryno cough, no wheezing, no shortness of breath Cardiacno palpitations, no chest pain, no syncope Maged nausea, vomiting, diarrhea, melena, hematochezia GUno urinary retention, no urinary incontinence, no dysuria, no hematuria Musculoskeletalno joint pain, no muscle tenderness Skinno bruising, no rashes, no pruritus Neurogeneralized weakness. No focal deficits Psychno depression, no anxiety Physical Exam 2 Physical Exam: General-alert and oriented x3, no fever, no chills HEENT-head atraumatic and normocephalic, pupils equal and reactive to light, extraocular muscles intact Neck-no lymphadenopathy or thyromegaly, trachea midline Chest-clear to auscultation. No rales, wheezing or rhonchi Cardiac-regular rate and rhythm, normal S1 and S2 Abdomen-normal bowel sounds, no hepatosplenomegaly Extremities-no cyanosis, clubbing, or edema Neuro-cranial nerves II through XII intact, motor and sensory function within normal limits, strength symmetrical with generalized weakness, no focal deficits Psych-normal affect, normal mood Results & Data Results & Data Vital Signs (Past 12 Hours) Vital Signs Temp Pulse Resp BP Pulse Ox O2 Del Method 07/24/24 15:35 36.9 C 73 18 157/80 H 98 Room Air 07/24/24 07:50 36.5 C 72 18 175/61 H 93 Room Air Laboratory Results 07/24/24 06:01 07/24/24 06:01 PG Care Time/CCT Total # of Minutes Spent Total Time Spent with Patient: Total time spent is greater than 50% in coordination of care (as documented) at patient's floor/unit and/or counseling patient: Coding Level of Care Code 51233 SUB INP/OBS CARE 2/35MIN Diagnoses Generalized weakness R53.1 Mastoiditis H70.90 Aphthous stomatitis K12.0 Parkinsonism G20.C
[2024-07-25 08:43] LABS: Basophils # (auto) 0.03 K/uL (0.00-0.20); Basophils % (auto) 0.3 %; Eosinophils # (auto) 0.07 K/uL (0.00-0.50); Eosinophils % (auto) 0.8 %; Hematocrit (blood only) 34.3 % (42.0-52.0); Hemoglobin 11.2 g/dl (14.0-18.0); Immature Granulocytes # (auto) 0.04 K/uL (0.01-0.20); Immature Granulocytes % (auto) 0.5 %; Lymphocytes # (auto) 0.88 K/uL (1.20-3.40); Lymphocytes % (auto) 10.2 %; Mean Corpuscular Hemoglobin 26.8 pg (25.0-34.0); Mean Corpuscular Hgb Conc 32.7 g/dL (32.0-36.0); Mean Corpuscular Volume 82.1 fL (80.0-100.0); Mean Platelet Volume 9.8 fL (9.4-12.4); Monocytes # (auto) 0.66 K/uL (0.11-0.59); Monocytes % (auto) 7.6 %; Neutrophils # (auto) 6.97 K/uL (1.40-6.50); Neutrophils % (auto) 80.6 %; Platelet Count 325 K/uL (130-400); RDW Coefficient of Variation 13.4 % (11.5-14.5); RDW Standard Deviation 40.2 fL (36.4-46.3); Red Blood Count 4.18 M/uL (4.70-6.10); White Blood Count 8.65 K/ul (4.8-10.8)
[2024-07-25 08:59] LABS: BUN Creatinine Ratio 17.7 (10-20); Calcium 8.9 mg/dl (8.6-10.3); Creatinine Clr Calc Pharmacy 51.1 ml/min; Potassium 4.4 mmol/L (3.5-5.1)
--- NOTE | 2024-07-25 11:08 | Hospitalist Progress Note ---
Date of Service July 25, 2024 Assessment & Plan (1) Mastoiditis: Plan: Seen on MRI scan. Continue Unasyn, day 3. ESR is markedly elevated as a consequence. cultures pending (2) Generalized weakness: Plan: Probably a consequence of acute infection. Supportive care. Treat mastoiditis. Obtain OT and PT evaluations (3) Aphthous stomatitis: Plan: Somewhat improved. Continue magic mouthwash. (4) Parkinsonism: Plan: Stable. Continue current medical management (5) Hyponatremia: Plan: probably hypovolemic will be wary of HCTZ (6) Hypertension: Plan: poorly controlled on Lisinopril 10mg daily will add HCTZ 25mg daily Plan It appears he is going to need rehab placement at discharge. OT and PT assessments requested Admission and Anticipated Discharge Date Admission Date: July 23, 2024 Subjective patient seen and examined, he is hard of hearing, although his hearing aid is in situ, probably needs new battery Review of Systems Review of Systems: All systems reviewed are negative, apart from the ones contained in the history. Physical Exam Physical Exam: The patient is awake, alert and oriented 3, well developed and well nourished, normocephalic and atraumatic, lying in bed and in no acute distress. HEENT--PERRL, EOMI, mucous membranes and oropharynx mildly dry Neck--supple. No JVD. No bruits. Thyroid normal, trachea midline, no adenopath y. Heart--normal S1 and S2. No murmurs, rubs or gallops. Lungs--clear bilaterally, no respiratory distress, no accessory muscle use. Abdomen--normal bowel sounds and soft. Extremities--no cyanosis or clubbing. No edema. Dermatologic--normal skin turgor, normal color, no abnormal lymph nodes, no rash. Neurologic--cranial nerves II through XII grossly intact. Rheumatologic--normal range of motion. Psychiatric--normal affect. Results & Data Results & Data Vital Signs (Past 12 Hours) Vital Signs Temp Pulse Resp BP Pulse Ox O2 Del Method 07/25/24 07:16 98.2 F 97 H 18 160/65 H 94 Room Air PG Care Time/CCT Total # of Minutes Spent Total Time Spent with Patient: Total time spent is greater than 50% in coordination of care (as documented) at patient's floor/unit and/or counseling patient: Coding Level of Care Code 73211 SUB INP/OBS CARE 235MIN Diagnoses Mastoiditis H70.90 Generalized weakness R53.1 Aphthous stomatitis K12.0 Parkinsonism G20.C Hyponatremia E87.1 Hypertension I10 Time Spent (min) 35
[2024-07-25] MEDS: hydroCHLOROthiazide 25 MG TAB PO STA (12:19)
[2024-07-25] MEDS: JANUVIA 50 MG PO SCH (15:34)
[2024-07-26 07:20] LABS: Basophils # (auto) 0.05 K/uL (0.00-0.20); Basophils % (auto) 0.7 %; Eosinophils % (auto) 1.3 %; Hematocrit (blood only) 33.4 % (42.0-52.0); Hemoglobin 11.1 g/dl (14.0-18.0); Immature Granulocytes # (auto) 0.04 K/uL (0.01-0.20); Immature Granulocytes % (auto) 0.5 %; Lymphocytes % (auto) 11.9 %; Mean Corpuscular Hemoglobin 26.9 pg (25.0-34.0); Mean Corpuscular Hgb Conc 33.2 g/dL (32.0-36.0); Mean Corpuscular Volume 80.9 fL (80.0-100.0); Mean Platelet Volume 9.6 fL (9.4-12.4); Monocytes # (auto) 0.62 K/uL (0.11-0.59); Monocytes % (auto) 8.2 %; Neutrophils # (auto) 5.84 K/uL (1.40-6.50); Neutrophils % (auto) 77.4 %; Platelet Count 331 K/uL (130-400); RDW Coefficient of Variation 13.8 % (11.5-14.5); RDW Standard Deviation 40.8 fL (36.4-46.3); Red Blood Count 4.13 M/uL (4.70-6.10); White Blood Count 7.55 K/ul (4.8-10.8)
[2024-07-26 07:38] LABS: BUN Creatinine Ratio 17.8 (10-20); Calcium 9.2 mg/dl (8.6-10.3); Creatinine Clr Calc Pharmacy 44.8 ml/min; Potassium 4.3 mmol/L (3.5-5.1)
[2024-07-26] MEDS: hydroCHLOROthiazide 25 MG TAB PO SCH (07:56)
[2024-07-26 07:57] LABS: Alpha 1 Globulin 0.6 g/dL (0.2-0.3); Alpha 2 Globulin 1.2 g/dL (0.5-0.9); Beta-1-Globulin 0.4 g/dL (0.4-0.6); Beta-2-Globulin 0.6 g/dL (0.2-0.5); Gamma Globulin 1.3 g/dL (0.8-1.7); Monoclonal Protein Band 1 DNR g/dL (NONE DETECTED); Monoclonal Protein Band 2 DNR g/dL (NONE DETECTED); Monoclonal Protein Band 3 DNR g/dL (NONE DETECTED); Total Protein 7.1 g/dL (6.1-8.1)
--- NOTE | 2024-07-26 10:20 | Hospitalist Progress Note ---
Date of Service July 26, 2024 Assessment & Plan (1) Mastoiditis: Plan: Seen on MRI scan. Continue Unasyn, day 4. ESR is markedly elevated as a consequence. cultures pending will transition to PO Augmentin tomorrow (2) Generalized weakness: Plan: According to family, patient has been declining Probably a consequence of acute infection on a background of parkinson. Supportive care. Treat mastoiditis. continue Pt/OT (3) Aphthous stomatitis: Plan: Somewhat improved. Continue magic mouthwash. (4) Parkinsonism: Plan: Stable. Continue current medical management (5) Hyponatremia: Plan: probably hypovolemic will be wary of HCTZ (6) Hypertension: Plan: poorly controlled on Lisinopril 10mg daily will add HCTZ 25mg daily Plan He will need snf, he is medically stable when accepted Admission and Anticipated Discharge Date Admission Date: July 23, 2024 Subjective patient seen and examined, he is hard of hearing, Review of Systems Review of Systems: All systems reviewed are negative, apart from the ones contained in the history. Physical Exam Physical Exam: The patient is awake, alert and oriented 3, well developed and well nourished, normocephalic and atraumatic, lying in bed and in no acute distress. HEENT--PERRL, EOMI, mucous membranes and oropharynx mildly dry Neck--supple. No JVD. No bruits. Thyroid normal, trachea midline, no adenop athy. Heart--normal S1 and S2. No murmurs, rubs or gallops. Lungs--clear bilaterally, no respiratory distress, no accessory muscle use. Abdomen--normal bowel sounds and soft. Extremities--no cyanosis or clubbing. No edema. Dermatologic--normal skin turgor, normal color, no abnormal lymph nodes, no rash. Neurologic--cranial nerves II through XII grossly intact. tremor, bradykinesia Rheumatologic--normal range of motion. Psychiatric--normal affect. Results & Data Results & Data Vital Signs (Past 12 Hours) Vital Signs Temp Pulse Resp BP Pulse Ox O2 Del Method 07/26/24 09:17 Room Air, CPAP 07/26/24 06:59 98.4 F 72 18 150/70 H 94 Room Air PG Care Time/CCT Total # of Minutes Spent Total Time Spent with Patient: Total time spent is greater than 50% in coordination of care (as documented) at patient's floor/unit and/or counseling patient: Coding Level of Care Code 01869 SUB INP/OBS CARE MIN Diagnoses Mastoiditis H70.90 Generalized weakness R53.1 Aphthous stomatitis K12.0 Parkinsonism G20.C Hyponatremia E87.1 Hypertension I10 Time Spent (min) 35
[2024-07-26 17:47] LABS: Babesia microti DNA Not Detected (Not Detected)
[2024-07-27 07:13] LABS: Basophils # (auto) 0.04 K/uL (0.00-0.20); Basophils % (auto) 0.5 %; Eosinophils # (auto) 0.09 K/uL (0.00-0.50); Eosinophils % (auto) 1.2 %; Hematocrit (blood only) 33.4 % (42.0-52.0); Hemoglobin 11.2 g/dl (14.0-18.0); Immature Granulocytes # (auto) 0.04 K/uL (0.01-0.20); Immature Granulocytes % (auto) 0.5 %; Lymphocytes # (auto) 0.87 K/uL (1.20-3.40); Lymphocytes % (auto) 11.4 %; Mean Corpuscular Hemoglobin 27.3 pg (25.0-34.0); Mean Corpuscular Hgb Conc 33.5 g/dL (32.0-36.0); Mean Corpuscular Volume 81.5 fL (80.0-100.0); Mean Platelet Volume 9.7 fL (9.4-12.4); Monocytes # (auto) 0.62 K/uL (0.11-0.59); Monocytes % (auto) 8.1 %; Neutrophils # (auto) 5.95 K/uL (1.40-6.50); Neutrophils % (auto) 78.3 %; Platelet Count 337 K/uL (130-400); RDW Coefficient of Variation 13.7 % (11.5-14.5); RDW Standard Deviation 40.5 fL (36.4-46.3); White Blood Count 7.61 K/ul (4.8-10.8)
[2024-07-27 07:28] LABS: BUN Creatinine Ratio 19.1 (10-20); Calcium 9.2 mg/dl (8.6-10.3); Creatinine Clr Calc Pharmacy 44.1 ml/min; Potassium 4.5 mmol/L (3.5-5.1)
[2024-07-27] MEDS: amLODIPine BESYLATE 5 MG TAB PO ONE (07:47)
[2024-07-27] MEDS: SODIUM CHLORIDE 1 GM TABLET PO SCH (08:32)
[2024-07-27] MEDS: amLODIPine BESYLATE 5 MG TAB PO SCH (08:33)
--- NOTE | 2024-07-27 10:41 | Hospitalist Progress Note ---
Date of Service July 27, 2024 Assessment & Plan (1) Mastoiditis: Plan: Seen on MRI scan. Had about 5 days of Unasyn cultures negative so far Transition to PO Augmentin today (2) Parkinsonism: Plan: He has some tremors at rest, although no overt pill rolling tremor Some mask face and mild dysarthria follow s up with neurology outpatient neurology thinks side effect of anti parkinson med may outweight the benefit (3) Generalized weakness: Plan: According to family, patient has been declining Probably a consequence of acute infection on a background of parkinson. Supportive care. Treat mastoiditis. continue Pt/OT (4) Aphthous stomatitis: Plan: Somewhat improved. Continue magic mouthwash. (5) Hyponatremia: Plan: will discontinue HCTZ (6) Hypertension: Plan: poorly controlled on Lisinopril 10mg daily will add Amlodipine 5mg daily Plan He will need snf, he is medically stable when accepted Admission and Anticipated Discharge Date Admission Date: July 23, 2024 Subjective patient seen and examined, denies any new complaints, tolerating diet Review of Systems Review of Systems: All systems reviewed are negative, apart from the ones contained in the history. Physical Exam Physical Exam: The patient is awake, alert and oriented 3, well developed and well nourished, normocephalic and atraumatic, lying in bed and in no acute distress. HEENT--PERRL, EOMI, mucous membranes and oropharynx mildly dry Neck--supple. No JVD. No bruits. Thyroid normal, trachea midline, no adenopathy. Heart--normal S1 and S2. No murmurs, rubs or gallops. Lungs--clear bilaterally, no respiratory distress, no accessory muscle use. Abdomen--normal bowel sounds and soft. Extremities--no cyanosis or clubbing. No edema. Dermatologic--normal skin turgor, normal color, no abnormal lymph nodes, no rash. Neurologic--cranial nerves II through XII grossly intact. tremor, bradykinesia Rheumatologic--normal range of motion. Psychiatric--normal affect. Results & Data Results & Data Vital Signs (Past 12 Hours) Vital Signs Temp Pulse Resp BP Pulse Ox O2 Del Method 07/27/24 07:03 97.5 F L 81 20 166/81 H 94 Room Air PG Care Time/CCT Total # of Minutes Spent Total Time Spent with Patient: Total time spent is greater than 50% in coordination of care (as documented) at patient's floor/unit and/or counseling patient: Coding Level of Care Code 75365 SUB INP/OBS CARE 235MIN Diagnoses Mastoiditis H70.90 Parkinsonism G20.C Generalized weakness R53.1 Aphthous stomatitis K12.0 Hyponatremia E87.1 Hypertension I10 Time Spent (min) 35
[2024-07-27 12:57] LABS: Albumin 2.6 g/dL (3.8-4.8); Alpha 1 Globulin 0.5 g/dL (0.2-0.3); Beta-1-Globulin 0.4 g/dL (0.4-0.6); Beta-2-Globulin 0.5 g/dL (0.2-0.5); Gamma Globulin 1.1 g/dL (0.8-1.7); Monoclonal Protein Band 1 DNR g/dL (NONE DETECTED); Monoclonal Protein Band 2 DNR g/dL (NONE DETECTED); Monoclonal Protein Band 3 DNR g/dL (NONE DETECTED); Total Protein 6.1 g/dL (6.1-8.1)
[2024-07-27] MEDS: AMOXICILLIN/CLAVULANATE 875 MG TAB PO SCH (17:15)
[2024-07-28 07:41] LABS: Abnormal Protein Band 1 DNR mg/24 h (NONE DETECTED); Abnormal Protein Band 2 DNR mg/24 h (NONE DETECTED); Abnormal Protein Band 3 DNR mg/24 h (NONE DETECTED); Creatinine, 24 hr Urine 0.96 g/24 h (0.50-2.15); Protein, Urine 24 Hour 639 mg/24 h (<150); Ur Albumin % 50 %; Ur Alpha-1-globulin % 9 %; Ur Alpha-2-globulin % 16 %; Ur Beta Globulin % 12 %; Ur Gamma Globulin % 14 %; Ur Protein/Creatinine Rat mg/g 667 mg/g creat (<100); Urine Protein/Creatinine Ratio 0.667 (<0.100)
--- NOTE | 2024-07-28 10:24 | Neurology Consultation ---
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 He does not have idiopathic Parkinson's disease. I would not recommend carbidopa levodopa as I think the potential side effects of this medication would outweigh any benefit. Patient has been exhibiting subacute decline in functioning over the past 6 to 7 weeks. He has been treated with Unasyn for mastoiditis. He has a significantly elevated sedimentation rate that may be related to infection. He has proteinuria and mild hyponatremia. Recent brain MRI negative for acute stroke or other acute process. He does have generalized cerebral atrophy and moderately extensive cerebrovascular disease. His presentation could be consistent with giant cell arteritis as he does have a chronic headache and significantly elevated ESR. If it is felt that he has not been responding to antibiotic therapy for suspected mastoiditis as seen on MRI, it may be reasonable to consider a temporal artery biopsy to assess for giant cell arteritis. In that context, treatment with prednisone could be considered as well. History of Present Illness Reason for Consultation: Parkinsonism Requesting Physician: Izabela Attending Physician: Quyen Gurrola MD History of Present Illness The patient is an 83-year-old male who is known to me, I last saw him in allergy clinic July 15, 2024. He has a history of memory loss, chronic dysphonia, dysphagia, ambulatory dysfunction, stooped posture. No pill-rolling resting tremor. 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 He is prescribed donepezil to address mild dementia. He has a history of chronic headache and neck pain as well. At the time of his last appointment he had been complaining of ongoing headache, neck pain, slurred speech, his spouse had observed occasional sudden jerking movements of the limbs. His condition is seem to have been declining over the previous 4 to 6 weeks. I have recommended an outpatient brain MRI as well as some additional labs at that time. Brain MRI was completed July 21, 2024 and was negative for stroke or other acute process. No significant change compared with the previous study done in January 2024. I independently reviewed these images. There is atrophy and moderately extensive microvascular ischemic disease, primarily periventricular with some subcortical distribution as well. 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 No abnormalities on GRE that would suggest chronic hemorrhage or microhemorrhage. There was evidence of fluid in the mastoid air cells bilaterally potentially consistent with mastoiditis and mild paranasal sinus disease. He presented to the emergency department on July 23, 2024 for further assessment of generalized weakness, confusion. A chest x-ray revealed no active use. He has a significantly elevated ESR, greater than 130. He has mild hyponatremia which appears to be chronic although slightly worse recently, sodium 128. He is hyperglycemic. A recent vitamin B12 level was 761. TSH normal. Urinalysis was negative for infection although did reveal significantly elevated protein. Urine protein electrophoresis revealed a slight restriction in the gamma region, urine immunofixation indicated indistinct bands potentially consistent with reactive inflammation. This morning, the patient is resting comfortably in bed, he has eaten his breakfast. He appears to be mildly inattentive with slow processing, recall seeing me in the office recently, see examination below for further details. Allergies Allergy/AdvReac Type Severity Reaction Status Date / Time house dust mite Allergy Verified 07/15/24 15:33 No Known Drug Allergies Allergy Verified 07/15/24 15:33 tree and shrub pollen Allergy Verified 07/15/24 15:33 Home Medications Medication Instructions Recorded Confirmed Type aspirin 81 mg tablet,delayed 81 mg PO DAILY 03/01/19 07/23/24 History release ketoconazole 2 % topical cream 1 applic topical DAILY PRN Skin 09/24/21 07/23/24 History Irritation multivitamin (Multiple Vitamins 1 tab PO DAILY 09/24/21 07/23/24 History tablet) lisinopril 10 mg tablet 10 mg PO DAILY 09/27/21 07/23/24 History fluticasone propionate 50 1 spray intranasal DAILY PRN 09/12/22 07/23/24 History mcg/actuation nasal Congestion spray,suspension sitagliptin phosphate 50 mg tablet 50 mg PO DAILY 02/02/24 07/23/24 History (Januvia) donepezil 10 mg tablet 10 mg PO HS #90 tabs 03/07/24 07/23/24 Rx ipratropium bromide 42 mcg (0.06 2 spray intranasal TID #15 mL 05/12/24 07/23/24 Rx %) nasal spray azelastine 137 mcg (0.1 %) nasal 2 spray intranasal BID #30 mL 06/08/24 07/23/24 Rx spray amoxicillin-pot clavulanate 1 dose PO BID 07/15/24 07/23/24 History [Augmentin] famotidine 40 mg tablet 40 mg PO HS 07/23/24 07/23/24 History omega-3 fatty acids 1,000 mg 2,000 mg PO DAILY 07/23/24 07/23/24 History capsule Patient History Medical History ETD (eustachian tube dysfunction) Dysfunction of right eustachian tube Hallux valgus (acquired), left foot Acquired hallux valgus of right foot Hammertoe of left foot Acquired hammer toe of right foot Diabetes mellitus with diabetic polyneuropathy Surgical History S/P cataract surgery History of transurethral resection of prostate History of appendectomy Myringotomy tube status S/P T&A (status post tonsillectomy and adenoidectomy) History of uvulopalatopharyngoplasty H/O sinus surgery History of prostate surgery H/O shoulder surgery Family History Mother Rheumatic fever Heart disease Heart murmur Father Cerebral artery occlusion Brother Hearing loss Heart murmur Lung disease Other Coronary heart disease No family history of adverse response to anesthesia No family history of bleeding disorder Social History Smoking Status: Never smoker Hx Alcohol Use: No Hx Substance Use: No Preferred Language: [place] Communication Ability: Effective Hearing Ability: Hard of Hearing Senior Insight Manager Required: No Beliefs That Will Affect Care: Shinto marital status: Current Living Situation: Spouse current occupational status: retired Other Information That Helps Us Care for You: No ([place]) Feels Safe at Home: Yes Assistive Devices: Stair Lift and Walker Review of Systems Review of Systems: Unobtainable due to cognitive status Exam (Neuro) Constitutional: well developed and well nourished; no acute distress Eyes: normal visual santos by confrontation, PERRL and EOM intact bilaterally; no nystagmus Neurologic: Oriented to:: Person and Place; negative Time Cognitive Function: negative Abstraction, Calculations or Cognitive Speed Memory: negative Short Term Intact Attention: negative Span Intact Speech Fluency: Dysarthria Speech Aphasia: negative Aphasia Fund of Knowledge: Vocabulary Cranial Nerves: Normal II, III, IV, , V, VIII, IX, X, XI and XII; Abnorm VII (Mild right facial droop) Motor Strength: Normal Lower Extremities and Normal Upper Extremities Motor Tone: Normal Lower Extremities and Normal Upper Extremities Rigidity: None Muscle Bulk/Involuntary Movements: No Involuntary Movements; negative Pill Rolling Tremor Sensation: Light Touch Intact, Pain/Temperature Intact and Proprioception Intact Coordination: negative Finger-Nose Abnormal Deep Tendon Reflexes: Rt Triceps: 2+, Lt Triceps: 2+, Rt Biceps: 2+, Lt Biceps: 2+, Rt Brachioradialis: 2+, Lt Brachioradialis: 2+, Rt Patellar: 2+, Lt Patellar: 2+, Rt Ankle: 1+ and Lt Ankle: 1+ Results & Data Vital Signs (Past 12 Hours) Vital Signs Temp Pulse Resp BP Pulse Ox O2 Del Method 07/28/24 07:40 Room Air 07/28/24 07:36 36.8 C 73 18 162/73 H 95 Room Air Laboratory Results WBC 7.61, hemoglobin 11.2, hematocrit 33.4, platelet count 337, ESR greater than 130, sodium 128, potassium 4 5, glucose 176, calcium 9.2 Diagnostic Findings Electrocardiogram reveals atrial fibrillation with rapid ventricular response. The previous electrocardiogram revealed a sinus rhythm with PACs. Coding Level of Care Code 93082 INT INP/OBS CARE 3/75MIN Diagnoses Mild cognitive impairment G31.84 Vascular parkinsonism G21.4 Headache R51.9 Elevated erythrocyte sedimentation rate R70.0 Time Spent (min) 90 Comment Total time includes patient contact, chart review, counseling, note preparation
--- NOTE | 2024-07-28 11:05 | Hospitalist Progress Note ---
Date of Service July 28, 2024 Assessment & Plan (1) Mastoiditis: Plan: Seen on MRI scan. Had about 5 days of Unasyn cultures negative so far Transition to PO Augmentin (2) Elevated erythrocyte sedimentation rate: Plan: ESR is still elevated, even after 5 days of IV antibiotics Etiology is uncertain, could be due to an inflammatory condition Given complaints og headache and neck pain, it will be reasonable to assess for temporal Arteritis as suggested by neurology. Obtain temporal artery biopsy Also, the urine electrophoresis suggests a restriction in the gamma region, monoclonal immunoglobulins This may be due to an inflammatory condition, like arteritis, however, plasma cell disorder is not excluded Will consult hematology to offer their opinion (3) Parkinsonism: Plan: He has some tremors at rest, although no overt pill rolling tremor Some mask face and mild dysarthria follow s up with neurology outpatient, will consult inpatient Recs appreciated, neurology thinks he probably has vascular parkinsonism (4) Generalized weakness: Plan: According to family, patient has been declining Probably a consequence of acute infection on a background of parkinson. Supportive care. continue Pt/OT (5) Aphthous stomatitis: Plan: Somewhat improved. Continue magic mouthwash. (6) Hyponatremia: Plan: will discontinue HCTZ (7) Hypertension: Plan: poorly controlled on Lisinopril 10mg daily will add Amlodipine 5mg daily Plan He will need snf, he is medically stable when accepted Admission and Anticipated Discharge Date Admission Date: July 23, 2024 Subjective patient seen and examined, denies any new complaints, tolerating diet Review of Systems Review of Systems: All systems reviewed are negative, apart from the ones contained in the history. Physical Exam Physical Exam: The patient is awake, alert and oriented 3, well developed and well nourished, normocephalic and atraumatic, lying in bed and in no acute distress. HEENT--PERRL, EOMI, mucous membranes and oropharynx mildly dry Neck--supple. No JVD. No bruits. Thyroid normal, trachea midline, no adenopathy. Heart--normal S1 and S2. No murmurs, rubs or gallops. Lungs--clear bilaterally, no respiratory distress, no accessory muscle use. Abdomen--normal bowel sounds and soft. Extremities--no cyanosis or clubbing. No edema. Dermatologic--normal skin turgor, normal color, no abnormal lymph nodes, no rash. Neurologic--cranial nerves II through XII grossly intact. tremor, bradykinesia Rheumatologic--normal range of motion. Psychiatric--normal affect. Results & Data Results & Data Vital Signs (Past 12 Hours) Vital Signs Temp Pulse Resp BP Pulse Ox O2 Del Method 07/28/24 10:15 92 H 20 139/68 97 Room Air 07/28/24 07:40 Room Air 07/28/24 07:36 98.2 F 73 18 162/73 H 95 Room Air PG Care Time/CCT Total # of Minutes Spent Total Time Spent with Patient: Total time spent is greater than 50% in coordination of care (as documented) at patient's floor/unit and/or counseling patient: Coding Level of Care Code 25620 SUB INP/OBS CARE 2/35MIN Diagnoses Mastoiditis H70.90 Elevated erythrocyte sedimentation rate R70.0 Parkinsonism G20.C Generalized weakness R53.1 Aphthous stomatitis K12.0 Hyponatremia E87.1 Hypertension I10 Time Spent (min) 35
[2024-07-28] MEDS: OPTIRAY 320 125ml IV ONE (16:00)
--- NOTE | 2024-07-28 16:55 | CT Scan Report ---
CT ANGIOGRAM OF THE CHEST WITH AND WITHOUT CONTRAST. HISTORY: Chest pain. Concern for arteritis TECHNIQUE: Enhanced CT examination of the chest was performed using CT ANGIOGRAM protocol. IV CONTRAST: 100 mL of OMNIPAQUE 300 COMPARISON: None. FINDINGS: No acute aortic process detected. No appreciable inflammation surrounding the arterial vasculature of the chest. No pulmonary embolism detected to the segmental levels. LYMPH NODES: No lymphadenopathy by size criteria. CARDIOVASCULAR: Mildly enlarged cardiac size. No pericardial effusion. No aortic aneurysm. There are coronary artery calcifications in keeping with coronary artery disease. MEDIASTINUM: No solid or cystic mediastinal masses. The esophagus is normally decompressed. LUNGS/PLEURA: The central tracheo-bronchial tree is patent. No mass or consolidation identified. No pleural effusion or pneumothorax. No suspicious pulmonary nodules. BONES: No suspicious osseous lesions. VISUALIZED LOWER NECK: Unremarkable. VISUALIZED UPPER ABDOMEN: Unremarkable IMPRESSION: No acute aortic process detected. No appreciable inflammation surrounding the arterial vasculature of the chest. No pulmonary embolism detected to the segmental levels. Electronically signed by Gus Sandoval 07-28-2024 4:55 PM
--- NOTE | 2024-07-28 17:07 | CT Scan Report ---
HISTORY: Neck pain. Concern for arteritis. TECHNIQUE: CT angiography of the neck was performed with and without contrast. Coronal and sagittal reformats were created. IV CONTRAST: 100 mL of OMNIPAQUE 300 COMPARISON: None FINDINGS: CTA NECK: Right carotid: No hemodynamically significant stenosis. Left carotid: No hemodynamically significant stenosis. Surrounding bilateral distal common carotid and cervical ICAs, there appears to be a circumferential rind of soft tissue density. Vertebrobasilar system: No hemodynamically significant stenosis. Aortic arch and subclavian arteries: No hemodynamically significant stenosis. Nonvascular structures: Nasopharyngeal thickening could be due to pharyngitis. However there are suggested mild erosive changes along the abutting clivus. Bilateral mastoid fluids are present.. Stenosis ranges are derived using NASCET criteria. IMPRESSION: Rind of soft tissue density suggested surrounding the distal common carotid arteries and bilateral cervical ICAs. These findings are nonspecific and may represent mild noncalcified atherosclerotic plaques however given the current clinical context, arteritis may be a consideration as well. Please correlate with laboratory markers for evidence of inflammation. No dynamically significant luminal narrowing. Nasopharyngeal thickening is identified. This may be due to pharyngitis however there appears to be subtle erosive change along the abutting clivus and bilateral mastoid fluids are also seen. Please correlate with direct inspection to exclude nasopharyngeal carcinoma/neoplasm Electronically signed by Gus Sandoval 07-28-2024 5:05 PM
[2024-07-29] MEDS ORDERED: Nursing to Pharmacy Communication SCH (04:00)
[2024-07-29] MEDS: INSULIN ASPART PER UNIT CHARGE SC SCH ×2 (05:37→12:22)
[2024-07-29 06:41] LABS: Hematocrit (blood only) 34.2 % (42.0-52.0); Hemoglobin 11.4 g/dl (14.0-18.0); Mean Corpuscular Hemoglobin 27.3 pg (25.0-34.0); Mean Corpuscular Hgb Conc 33.3 g/dL (32.0-36.0); Mean Corpuscular Volume 81.8 fL (80.0-100.0); Mean Platelet Volume 9.7 fL (9.4-12.4); Platelet Count 375 K/uL (130-400); RDW Coefficient of Variation 13.9 % (11.5-14.5); RDW Standard Deviation 41.1 fL (36.4-46.3); Red Blood Count 4.18 M/uL (4.70-6.10); White Blood Count 7.09 K/ul (4.8-10.8)
--- NOTE | 2024-07-29 07:54 | Communication Note ---
Date of Service: July 29, 2024 CTA suggestive of arterial inflammation of the carotid arteries bilaterally. Even if biopsy is neg, he will need steroid treatment. Will cancel the bio psies.
[2024-07-29] MEDS ORDERED: methylPREDNISolone 125 MG/2 ML VIAL IV STA (08:11)
--- NOTE | 2024-07-29 08:31 | Consultation ---
Date of Consultation July 29, 2024 Assessment & Plan (1) Giant cell arteritis: At this point would recommend angio of the carotids and upper extremity vessels. If this is inconclusive then temporal artery biopsy will be performed tomorrow. Thank you very much for letting us participate in the care of this patient. History of Present Illness Reason for Consultation: headaches, generalized lethargy Attending Physician: Quyen Gurrola MD History of Present Illness This is a 3-year-old gentleman over the last few weeks he developed lethargy headaches and malaise. He was treated with antibiotics for possible mastoiditis. It did not improve after 5 days of antibiotics. His sed rate is markedly elevated. He denies any claudication. Denies any cerebrovascular sufficiency symptoms. The headache is generalized on both sides. He thinks it may be slightly better over the last day or 2 but still present. Allergies Allergy/AdvReac Type Severity Reaction Status Date / Time house dust mite Allergy Verified 07/15/24 15:33 No Known Drug Allergies Allergy Verified 07/15/24 15:33 tree and shrub pollen Allergy Verified 07/15/24 15:33 Home Medications Medication Instructions Recorded Confirmed Type aspirin 81 mg tablet,delayed 81 mg PO DAILY 03/01/19 07/23/24 History release ketoconazole 2 % topical cream 1 applic topical DAILY PRN Skin 09/24/21 07/23/24 History Irritation multivitamin (Multiple Vitamins 1 tab PO DAILY 09/24/21 07/23/24 History tablet) lisinopril 10 mg tablet 10 mg PO DAILY 09/27/21 07/23/24 History fluticasone propionate 50 1 spray intranasal DAILY PRN 09/12/22 07/23/24 History mcg/actuation nasal Congestion spray,suspension sitagliptin phosphate 50 mg tablet 50 mg PO DAILY 02/02/24 07/23/24 History (Januvia) donepezil 10 mg tablet 10 mg PO HS #90 tabs 03/07/24 07/23/24 Rx ipratropium bromide 42 mcg (0.06 2 spray intranasal TID #15 mL 05/12/24 07/23/24 Rx %) nasal spray azelastine 137 mcg (0.1 %) nasal 2 spray intranasal BID #30 mL 06/08/24 07/23/24 Rx spray amoxicillin-pot clavulanate 1 dose PO BID 07/15/24 07/23/24 History [Augmentin] famotidine 40 mg tablet 40 mg PO HS 07/23/24 07/23/24 History omega-3 fatty acids 1,000 mg 2,000 mg PO DAILY 07/23/24 07/23/24 History capsule Patient History Medical History ETD (eustachian tube dysfunction) Dysfunction of right eustachian tube Hallux valgus (acquired), left foot Acquired hallux valgus of right foot Hammertoe of left foot Acquired hammer toe of right foot Diabetes mellitus with diabetic polyneuropathy Surgical History S/P cataract surgery History of transurethral resection of prostate History of appendectomy Myringotomy tube status S/P T&A (status post tonsillectomy and adenoidectomy) History of uvulopalatopharyngoplasty H/O sinus surgery History of prostate surgery H/O shoulder surgery Family History Mother Rheumatic fever Heart disease Heart murmur Father Cerebral artery occlusion Brother Hearing loss Heart murmur Lung disease Other Coronary heart disease No family history of adverse response to anesthesia No family history of bleeding disorder Social History Smoking Status: Never smoker Hx Alcohol Use: No Hx Substance Use: No Preferred Language: Hungarian Communication Ability: Effective Hearing Ability: Hard of Hearing Manager Services Required: No Beliefs That Will Affect Care: Quaker marital status: Current Living Situation: Spouse current occupational status: retired Other Information That Helps Us Care for You: No ([place]) Feels Safe at Home: Yes Assistive Devices: Stair Lift and Walker Review of Systems Review of Systems: All systems reviewed & are unremarkable except as noted in HPI & below Physical Exam Constitutional: WD/WN, vitals as above Neck: Thyroid: thyroid nontender and thyroid not warm Respiratory: normal respiratory effort, lungs clear to auscultation Cardiovascular: RRR, no murmur, no edema Vessels: femoral pulses present and radial pulses present; no carotid bruit Extremities: normal capillary refill Gastrointestinal (Abdomen): normal bowel sounds, soft, nontender, no hepatosplenomegaly Neurologic: CN's II-XI intact bilaterally and deep tendon reflexes 2+ bilaterally Psychiatric: A+Ox3, euthymic affect Results & Data Vital Signs (Past 12 Hours) Vital Signs Temp Pulse Resp BP Pulse Ox O2 Del Method 07/29/24 06:56 36.4 C L 76 16 149/65 H 93 Room Air 07/28/24 22:41 Room Air
[2024-07-29] MEDS: methylPREDNISolone 60 MG in SYRINGE 0 ML IV STA (10:02)
--- NOTE | 2024-07-29 10:18 | Hospitalist Progress Note ---
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 Supportive care. continue Pt/OT (6) Aphthous stomatitis: Plan: Somewhat improved. Continue magic mouthwash. (7) Hyponatremia: Plan: will discontinue HCTZ (8) Hypertension: Plan: BP now under better control with Lisinopril and Amlodipine Plan He will need snf, he is medically stable when accepted. for discharge tomorrow Admission and Anticipated Discharge Date Admission Date: July 23, 2024 Subjective patient seen and examined, denies any new complaints, tolerating diet Review of Systems Review of Systems: All systems reviewed are negative, apart from the ones contained in the history. Physical Exam Physical Exam: The patient is awake, alert and oriented 3, well developed and well nourished, normocephalic and atraumatic, lying in bed and in no acute distress. HEENT--PERRL, EOMI, mucous membranes and oropharynx mildly dry Neck--supple. No JVD. No bruits. Thyroid normal, trachea midline, no adenopathy. Heart--normal S1 and S2. No murmurs, rubs or gallops. Lungs--clear bilaterally, no respiratory distress, no accessory muscle use. Abdomen--normal bowel sounds and soft. Extremities--no cyanosis or clubbing. No edema. Dermatologic--normal skin turgor, normal color, no abnormal lymph nodes, no rash. Neurologic--cranial nerves II through XII grossly intact. tremor, bradykinesia Rheumatologic--normal range of motion. Psychiatric--normal affect. Results & Data Results & Data Vital Signs (Past 12 Hours) Vital Signs Temp Pulse Resp BP Pulse Ox O2 Del Method 07/29/24 06:56 97.5 F L 76 16 149/65 H 93 Room Air 07/28/24 22:41 Room Air PG Care Time/CCT Total # of Minutes Spent Total Time Spent with Patient: Total time spent is greater than 50% in coordination of care (as documented) at patient's floor/unit and/or counseling patient: Coding Level of Care Code 25243 SUB INP/OBS CARE 2/35MIN Diagnoses Giant cell arteritis M31.6 Mastoiditis H70.90 Elevated erythrocyte sedimentation rate R70.0 Parkinsonism G20.C Generalized weakness R53.1 Aphthous stomatitis K12.0 Hyponatremia E87.1 Hypertension I10 Time Spent (min) 35
--- NOTE | 2024-07-30 07:18 | Hospitalist Progress Note ---
Date of Service July 30, 2024 Assessment & Plan (1) Generalized weakness: Plan: Pt is a 83 yo male with PMH of parkinsons, DM, and HTN presenting d/t progressive weakness. Giant cell arteritis - ESR was noted to be significantly elevated on admission; initially thought secondary to mastoiditis as seen on MRI - however, after 5 days of IV antibiotics, ESR remained elevated at >130 suggesting ongoing inflammatory process - vascular consulted; suggested CT angio which was suggestive of arteritis - s/p methylpred 60mg x1 on 07/29; begin prednisone 50mg daily today - pt will require prison steroids (months with slow taper) Mastoiditis - seen on brain MRI - s/p unasyn x5 days; transitioned to augmentin - sinus cultures negative DM - last A1c 03/2024 6.7% (per [facility] records) - continue home januvia - SSI ordered with continued hyperglycemia; will add insulin glargine 5u BID Parkinsonism - neuro consulted; defer carbidopa/levodopa as pt not thought to be exhibiting idiopathic PD - continue to follow with neuro as outpatient Generalized weakness - per family, patient has been declining - suspect secondary to acute infection/inflammation in the setting of parkinsonism - continue PT/OT Aphthous stomatitis - somewhat improved - continue magic mouthwash PRN Hyponatremia - Na 130 on admission; s/p 1L NS - thought originally to be secondary to HCTZ which has since been discontinued - continued drop in Na from 128 on 07/27 to 125 today despite addition of Na tabs - urine osm WNL 07/23 and again 07/30; 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 - fluid restrict 1200mL daily; recheck BMP in the AM Hypertension - continue home lisinopril - poorly controlled BP so amlodipine 5mg was added which resulted in much better BP control Diet: carb consistent, fluid restriction 1200mL VTE ppx: heparin Code: DNR/DNI Dispo: pt accepted to [facility] tomorrow 07/31 (2) Proteinuria: (3) Chronic sinusitis, unspecified: (4) Parkinsonism: (5) Vascular parkinsonism: (6) Chronic serous otitis media: (7) Obstructive sleep apnea: (8) Allergic rhinitis: (9) BPH (benign prostatic hyperplasia): (10) Enlarged prostate with lower urinary tract symptoms (LUTS): (11) Hypertension: (12) Sensorineural hearing loss (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: (13) Diabetic nephropathy: (14) Mild cognitive impairment: Admission and Anticipated Discharge Date Admission Date: July 23, 2024 Supervising Physician Co-Signing Physician Notes I personally examined the patient and verified all aguilar points of history and exam, discussed case, and agree with decision making with Dr Swain Not much of any meaningful HPI review of systems. Family present though, and they note that his voice is much clearer. Note that about 6 weeks ago he was not at all confusedwas independent to the point of even driving. 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 Vitals noted, in general he is hard to gauge true orientation but he is a bit emotionally labile and seems at least easily confused if not out right disoriented. No physical distress. HEENT normocephalic atraumatic mucous membranes moist. Breathing unlabored no accessory muscle use good effort. Skin without rashes pallor or icterus. Neuro without focal deficits, he is quite hard of hearing. Labs and diagnostics noted. Deliriumhis mental status seems to be a delirium, especially given how independent he was 6 weeks ago. The predominant deliriogenic factor is likely the giant cell arteritis. Obviously keeping vigilance for any other factors. Discussed with family that while the GCA probably cause the delirium, deliriums do not generally get better linearly with the root cause; and also unfortunately the same steroids that are required to treat the GCA can be deliriogenic themselves. They expressed a good understanding of this. Mucosal thickeninggiven that his voice is getting noticeably better on the steroids, I do wonder if it was not simply pharyngeal/mucosal edema. Given radiology's concerns about malignancy and ENT evaluation and scope are warranted, but I do not know if it necessarily requires an emergent timeline as much is simply in the near futurei.e. if it is not able to be done prior to discharge to SNF, this appears to be safe to have close outpatient follow-up for giant cell arteritissteroids, ongoing follow-up over time hyponatremiaprobably a mixed picturesome of his labs suggest SIADH, his history suggests poor p.o. intake/solute deficient, and the worsening does beg the question of a little bit of a fluid retention even though he is on glucocorticoids (because he is on such a high dose). Encourage p.o. intake. Continue sodium tabs, fluid restrict, continue to follow. DVT proph - heparin SQ Subjective Pt notes no new concerns this AM. He is struggling with his hearing aids and is upset about his hearing. Review of Systems Review of Systems: As per HPI Physical Exam Physical Exam: Constitutional: well appearing, no acute distress HEENT: normocephalic, no conjunctival injection CV: RRR, no murmur, no LE edema Respiratory: CTA bilaterally. No rhonchi, wheezes, or crackles. No increased work of breathing MSK: no gross deformities noted Neuro: alert, no FND noted Psych: mood and affect congruent Results & Data Results & Data Vital Signs (Past 12 Hours) Vital Signs Temp Pulse Resp BP Pulse Ox O2 Del Method 07/29/24 20:50 Room Air 07/29/24 19:45 36.8 C 79 16 115/69 94 Room Air Resident Activity Tracking Resident Involvement: Resident Care Provided Care Provided: Adult Hospital Medicine (3) Chronic sinusitis, unspecified Sinusitis location: unspecified location Qualified Code(s): J32.9 - Chronic sinusitis, unspecified
[2024-07-30] MEDS: predniSONE 50 MG TAB PO SCH (08:09)
[2024-07-30 10:13] LABS: BUN Creatinine Ratio 27.6 (10-20); Calcium 9.4 mg/dl (8.6-10.3); Creatinine Clr Calc Pharmacy 35.5 ml/min; Potassium 4.7 mmol/L (3.5-5.1)
--- NOTE | 2024-07-30 14:30 | Billing Data ---
Date of Service July 30, 2024 Coding Level of Care Code 23306 SUB INP/OBS CARE MIN
[2024-07-30] MEDS: ACETAMINOPHEN 325 MG TAB PO PRN (20:11)
[2024-07-30] MEDS: MELATONIN 3 MG TAB PO PRN (20:11)
[2024-07-30] MEDS: LANTUS PER UNIT CHARGE SQ SCH (20:12)
[2024-07-31 07:20] VITALS: PULSE 69; TEMP 97.7
[2024-07-31 07:40] LABS: BUN Creatinine Ratio 37.5 (10-20); Calcium 9.3 mg/dl (8.6-10.3); Creatinine Clr Calc Pharmacy 42.5 ml/min; Potassium 4.5 mmol/L (3.5-5.1)
[2024-07-31 08:57] VITALS: BP 136/69; RESP 20; O2SAT 96
--- NOTE | 2024-07-31 08:59 | Discharge Summary ---
Date of Service July 31, 2024 Admission HPI Per Admitting Provider 83-year-old male with a history of vascular parkinsonism, mild cognitive impairment, HTN, T2DM, JANET, allergic rhinitis, chronic sinusitis, chronic serous otitis media, LUTS, and sensorineural hearing loss presenting for subacute generalized weakness, waxing and waning confusion that has progressed over past 6 weeks. Patient lives independently with , did not need help with ADLs and ambulated independently until 6 weeks ago. Patient has had worsening generalized weakness but family noticed that he was dragging his right leg and had difficulty supporting his own weight today. Denies any recent falls. Denies recent illness, fevers/chills, chest pain, SOB, urinary sx. Of note, patient has extensive history of ENT problems, is currently taking Augmentin for chronic sinusitis in addition to Flonase and Azelastine. Patient also follows with neurology, recent MRI consistent with possible bilateral mastoiditis. Patient reports fairly new oral pain, with noticeable inflammation/ulceration of the mouth, otherwise denies pain. Has history of tick bites. ED Course: Labs largely unremarkable apart from UA with 3+ protein (previous UA 06/27 with only trace proteinuria), Na 130 S/p 1L bolus NSS Lyme screen negative. CXR negative. No leukocystosis. Admission Exam Per Admitting Provider Constitutional: no acute distress HEENT: NCAT, no conjunctival injection, tongue appears generally inflamed with superficial ulcerations scattered over tongue surface, oropharynx clear. CV: RRR,extremities well-perfused, no LE edema Resp: Lungs CTABL, no increased work of breathing GI: nondistended MSK: no gross deformities, 5/5 strength in bilateral upper and lower extremities Skin: warm, dry, no rash appreciated Neuro: alert, oriented, appreciable dysarthria (baseline), otherwise no focal neuro deficits Principal Diagnosis GCA, mastoiditis, hyponatremia Discharge Exam Constitutional: well appearing, no acute distress HEENT: normocephalic, no conjunctival injection CV: clinically well perfused Respiratory: no increased work of breathing MSK: no gross deformities noted Skin: warm, dry, no rashes Neuro: alert, no FND noted Discharge Data Allergies Allergy/AdvReac Type Severity Reaction Status Date / Time house dust mite Allergy Verified 07/15/24 15:33 No Known Drug Allergies Allergy Verified 07/15/24 15:33 tree and shrub pollen Allergy Verified 07/15/24 15:33 Consultations 07/23/24 01:40 ED Decision to Admit Stat 07/27/24 15:39 Consult Neurology Routine 07/28/24 10:40 Consult Vascular Surgery Routine 07/29/24 12:34 Consult Oromaxillofacial Surgery Routine Procedures Performed Operation Date: 07/29/24 07:00 <No data on this case meets the specified criteria> Ordered Studies 07/28/24 14:38 CTA chest wo/w con [CT angio chest wo/w con] Routine IMPRESSION: No acute aortic process detected. No appreciable inflammation surrounding the arterial vasculature of the chest. No pulmonary embolism detected to the segmental levels. CTA neck wo/w con [CT angio neck wo/w con] Routine IMPRESSION: Rind of soft tissue density suggested surrounding the distal common carotid arteries and bilateral cervical ICAs. These findings are nonspecific and may represent mild noncalcified atherosclerotic plaques however given the current clinical context, arteritis may be a consideration as well. Please correlate with laboratory markers for evidence of inflammation. No dynamically significant luminal narrowing. Nasopharyngeal thickening is identified. This may be due to pharyngitis however there appears to be subtle erosive change along the abutting clivus and bilateral mastoid fluids are also seen. Please correlate with direct inspection to exclude nasopharyngeal carcinoma/neoplasm Hospital Course (1) Generalized weakness: Pt is a 83 yo male with PMH of parkinsons, DM, and HTN presenting d/t progressive weakness. Giant cell arteritis - ESR was noted to be significantly elevated on admission; initially thought secondary to mastoiditis as seen on MRI - however, after 5 days of IV antibiotics, ESR remained elevated at >130 suggesting ongoing inflammatory process - vascular consulted; suggested CT angio which was suggestive of arteritis - s/p methylpred 60mg x1 on 07/29; begin prednisone 50mg daily 07/30 - pt will require mcc steroids- recommend following ESR and tapering steroids slowly over months - script sent for 14 days of 50mg prednisone; would recommended at least a 2 week course at this dose, but may need longer based on clinical evaluation and ESR levels Mastoiditis/chronic sinusitis - seen on brain MRI - s/p unasyn x5 days; transitioned to augmentin - sinus cultures negative - will finish 3 week course of ABX 08/03 as prescribed by ENT DM - last A1c 03/2024 6.7% (per [facility] records) - continue home januvia - pt continually hyperglycemic with only SSI so basal insulin added - recommend outpatient f/u to address BS levels but would recommend insulin therapy when inpatient if able Parkinsonism - neuro consulted; defer carbidopa/levodopa as pt not thought to be exhibiting idiopathic PD - continue to follow with neuro as outpatient Generalized weakness - per family, patient has been declining - suspect secondary to acute infection/inflammation in the setting of parkinsonism - continue PT/OT/rehab Aphthous stomatitis- improving - continue magic mouthwash PRN Hyponatremia - Na 130 on admission; s/p 1L NS - thought originally to be secondary to HCTZ which has since been discontinued - continued drop to 125 on 07/30 despite addition of Na tabs - urine osm WNL 07/23 and again 07/30; 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 - recommend continuation of Na 1g TID and fluid restriction 1200mL daily - Na day of discharge 130 Hypertension - continue home lisinopril - poorly controlled BP so amlodipine 5mg was added which resulted in much better BP control Mucosal thickening - per radiology, concerning for possible malignancy - recommend outpatient f/u with ENT Diet: carb consistent, fluid restriction 1200mL VTE ppx: heparin Code: DNR/DNI Dispo: d/c to [facility] for SNF (2) Proteinuria: (3) Chronic sinusitis, unspecified: (4) Parkinsonism: (5) Vascular parkinsonism: (6) Chronic serous otitis media: (7) Obstructive sleep apnea: (8) Allergic rhinitis: (9) BPH (benign prostatic hyperplasia): (10) Enlarged prostate with lower urinary tract symptoms (LUTS): (11) Hypertension: (12) Sensorineural hearing loss (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: (13) Diabetic nephropathy: (14) Mild cognitive impairment: Total Time Total Time Spent Total Time Spent (In Minutes): per attending attestation Discharge Plan Discharge Items Patient Disposition: Transfer Shelter Fac Reason For Visit: WEAKNESS Discharge Diagnosis: GCA, mastoiditis, hyponatremia, deconditioning Activity: Per Instructions section Non-emergency contact: Primary Care Provider Call non-emergency contact if: you have any medication questions and your symptoms worsen Follow-up/Referrals: Acosta West MD [Primary Care Provider] - Diet: Carb Consistent or DM2 Addtl Attending Provider Instructions: Pt is a 83 yo male with PMH of parkinsons, DM, and HTN presenting d/t progress edgar weakness. 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 steroids- recommend following ESR and tapering steroids slowly over months - script sent for 14 days of 50mg prednisone; would recommended at least a 2 week course at this dose, but may need longer based on clinical evaluation and ESR levels Mastoiditis/chronic sinusitis - seen on brain MRI - s/p unasyn x5 days; transitioned to augmentin - sinus cultures negative - will finish 3 week course of ABX 08/03 as prescribed by ENT DM - last A1c 03/2024 6.7% (per [facility] records) - continue home januvia - pt continually hyperglycemic with only SSI so basal insulin added - recommend outpatient f/u to address BS levels but would recommend insulin therapy when inpatient if able Parkinsonism - neuro consulted; defer carbidopa/levodopa as pt not thought to be exhibiting idiopathic PD - continue to follow with neuro as outpatient Generalized weakness - per family, patient has been declining - suspect secondary to acute infection/inflammation in the setting of pa rkinsonism - continue PT/OT/rehab Aphthous stomatitis- improving - continue magic mouthwash PRN Hyponatremia - Na 130 on admission; s/p 1L NS - thought originally to be secondary to HCTZ which has since been discontinued - continued drop to 125 on 07/30 despite addition of Na tabs - urine osm WNL 07/23 and again 07/30; 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 Skilled Items Patient informed of condition?: Yes DNR: Yes Discharge Level of Care: Skilled Communicable Disease: No Discharge Prognosis: Stable Lines: None Urinary Catheter: Yes Medications and DC Order Prescriptions: New amlodipine [Norvasc] 5 mg Tablet 5 mg PO QAM Qty: 30 0RF prednisone 50 mg Tablet 50 mg PO DAILY Qty: 14 0RF Rx Instructions: Will need taper after re-evaluation for GCA amoxicillin-pot clavulanate 875-125 mg Tablet 1 tab PO BIDM Qty: 7 0RF sodium chloride 1,000 mg Tablet,Soluble 1,000 mg PO TID Qty: 90 0RF First - Mouthwash Blm [Magic Mouthwash] 5 ml PO Q12H PRN (Reason: mouth pain) Qty: 100 0RF Continued fluticasone propionate 50 mcg/actuation spray,suspension 1 spray intranasal DAILY PRN (Reason: Congestion) Rx Instructions: administer into each nostril donepezil 10 mg tablet 10 mg PO HS Qty: 90 3RF ketoconazole 2 % cream 1 applic topical DAILY PRN (Reason: Skin Irritation) multivitamin [Multiple Vitamins] Tablet 1 tab PO DAILY aspirin 81 mg tablet,delayed release (DR/EC) 81 mg PO DAILY lisinopril 10 mg tablet 10 mg PO DAILY Januvia 50 mg tablet 50 mg PO DAILY azelastine 137 mcg (0.1 %) spray,non-aerosol 2 spray intranasal BID Qty: 30 2RF Rx Instructions: administer into each nostril ipratropium bromide 42 mcg (0.06 %) spray,non-aerosol 2 spray intranasal TID Qty: 15 0RF Rx Instructions: administer into each nostril famotidine 40 mg tablet 40 mg PO HS omega-3 fatty acids 1,000 mg Capsule 2,000 mg PO DAILY Discontinued amoxicillin-pot clavulanate [Augmentin] 1 dose PO BID Rx Instructions: BID for 3 weeks Discharge Orders: Discharge Order (Routine); Ordered 07/31/24 Ordered By: Linda Swain Admission Data Admit Date/Time: 07/23/24 02:41 Attending Provider: Selvin Miller Admit Provider: Barrington Mcgee Primary Care Provider: Acosta West Other Providers: Jennie Juarez Krysta Carranza at [place]; [facility]; Javier Mckeon; Melvin Orosco; Nabeel Stoddard Other Interventions: Discharge Summary Assessment (RN) Last Done: 07/31/24 10:34 Supervising Physician Co-Signing Physician Notes I personally examined the patient and verified all aguilar points of history and exam, discussed case, and agree with decision making with Dr Swain appearing stable. no new issues. labs improved. Vitals noted, resting comfortably. No physical distress. HEENT normocephalic atraumatic mucous membranes moist. Breathing unlabored no accessory muscle use good effort. Skin without rashes pallor or icterus. Deliriumhis mental status seems to be a delirium, especially given how independent he was 6 weeks ago. The predominant deliriogenic factor is likely the giant cell arteritis. Obviously keeping vigilance for any other factors. Discussed with family on 07/30 that while the GCA probably cause the delirium, deliriums do not generally get better linearly with the root cause; and also unfortunately the same steroids that are required to treat the GCA can be deliriogenic themselves. They expressed a good understanding of this. Mucosal thickeninggiven that his voice is getting noticeably better on the steroids, I do wonder if it was not simply pharyngeal/mucosal edema. Given radiology's concerns about malignancy and ENT evaluation and scope are warranted, but I do not know if it necessarily requires an emergent timeline as much is simply in the near futurei.e. if it is not able to be done prior to discharge to SNF (it does not appear ENT will be able to see him this weekend), this appears to be safe to have close outpatient follow-up for - outpt ENT r laisha would be appreciated. giant cell arteritissteroids, ongoing follow-up over time, slow and prolonged taper hyponatremiaprobably a mixed picturesome of his labs suggest SIADH, his history suggests poor p.o. intake/solute deficient, and the worsening does beg the question of a little bit of a fluid retention even though he is on glucocorticoids (because he is on such a high dose). Encourage p.o. intake. Continue sodium tabs, fluid restrict, continue to follow. Na 130 today - definitely safe for SNF - ongoing periodic BMP checks there. DVT proph - heparin SQ utilized while here safe for tx to SNF -long/slow steroid taper for GCA -PO intake/salt tabs and ~q48hr (then space more as possible) BMP for hyponatremia -reorientation/supportive care/PT/OT for delirium -outpt ENT referral for mucosal thickening/small chance of malignancy incidentally noted on CT Resident Activity Tracking Resident Involvement: Resident Care Provided Care Provided: Adult [facility] Medicine
--- NOTE | 2024-07-31 11:16 | Billing Data ---
Date of Service July 31, 2024 Coding Level of Care Code 88349 IN/OBS DISCH 30 MIN/LESS
== END 2024-07-31 11:43 | DRG 153 ==
LOC: ED 22:24 → 3N 07-23 02:41 → SUATTDRO 07-23 02:41 → 3N 07-23 03:56

== ENCOUNTER 2024-08-08 17:06 | Inpatient (IN) ==
--- NOTE | 2024-08-08 18:02 | CT Scan Report ---
INDICATION: Pain and injury. COMPARISON: CT from 06/27/2024 TECHNIQUE: Axial CT images of the head were obtained without IV contrast. Coronal and sagittal reformations were reviewed. FINDINGS: Harding-white differentiation is relatively preserved. No mass, mass effect or midline shift. Chronic ischemic white matter changes. No evidence of acute large territorial infarction or acute intracranial hemorrhage. Ventricles appear normal in size. Basal cisterns are patent. No depressed calvarial fracture. Fluid noted in the mastoid air cells, similar to prior. IMPRESSION: No acute intracranial process. Electronically signed by Ankit Leyva 08-08-2024 6:02 PM
[2024-08-08 18:05] LABS: Basophils # (auto) 0.01 K/uL (0.00-0.20); Basophils % (auto) 0.1 %; Hematocrit (blood only) 40.5 % (42.0-52.0); Hemoglobin 13.5 g/dl (14.0-18.0); Immature Granulocytes # (auto) 0.11 K/uL (0.01-0.20); Immature Granulocytes % (auto) 0.8 %; Lymphocytes # (auto) 0.74 K/uL (1.20-3.40); Lymphocytes % (auto) 5.5 %; Mean Corpuscular Hemoglobin 27.3 pg (25.0-34.0); Mean Corpuscular Hgb Conc 33.3 g/dL (32.0-36.0); Mean Platelet Volume 9.5 fL (9.4-12.4); Monocytes # (auto) 0.55 K/uL (0.11-0.59); Monocytes % (auto) 4.1 %; Neutrophils # (auto) 11.93 K/uL (1.40-6.50); Neutrophils % (auto) 89.5 %; Platelet Count 366 K/uL (130-400); RDW Coefficient of Variation 14.7 % (11.5-14.5); RDW Standard Deviation 43.6 fL (36.4-46.3); Red Blood Count 4.94 M/uL (4.70-6.10); White Blood Count 13.34 K/ul (4.8-10.8)
[2024-08-08 18:16] LABS: Albumin Globulin Ratio 0.8 (0.9-2); Albumin Level 3.4 gm/dl (3.4-5.0); BUN Creatinine Ratio 20.6 (10-20); Bilirubin,Total 0.7 mg/dl (0.2-1.0); Calcium 9.5 mg/dl (8.6-10.3); Creatinine Clr Calc Pharmacy 44.1 ml/min; Globulin 4.2 gm/dl (2.5-4.0); Magnesium 1.8 mg/dl (1.7-2.4); Potassium 4.7 mmol/L (3.5-5.1); Total Protein 7.6 gm/dl (6.0-8.3)
[2024-08-08 18:20] LABS: INR 1.1 (0.9-1.1); Prothrombin Time 11.6 Seconds (9.0-12.0)
--- NOTE | 2024-08-08 18:29 | XRay Report ---
INDICATION: Cough. TECHNIQUE: Frontal radiograph of the chest. COMPARISON: Radiograph from 07/22/2024. FINDINGS: Cardiomegaly. Subsegmental atelectasis in the lung bases. Pulmonary vasculature appear within normal limits. No infiltrate, pleural effusion or pneumothorax. No acute osseous abnormality evident. IMPRESSION: No acute cardiopulmonary process. Electronically signed by Ankit Leyva 08-08-2024 6:29 PM
[2024-08-08 18:32] LABS: Thyroid Stimulating Hormone 1.33 uIu/ml (0.300-4.500)
[2024-08-08 18:34] LABS: C Reactive Protein 10.13 mg/dl (0-0.5)
[2024-08-08 18:34] LABS: Adenovirus PCR Not Detected (NotDetected); Bordetella parapertussis PCR Not Detected (NotDetected); Bordetella pertussis PCR Not Detected (NotDetected); Chlamydia pneumoniae PCR Not Detected (NotDetected); Coronavirus 229E PCR Not Detected (NotDetected); Coronavirus CoV-2 (COVID19)PCR Not Detected (NotDetected); Coronavirus HKU1 PCR Not Detected (NotDetected); Coronavirus NL63 PCR Not Detected (NotDetected); Coronavirus OC43PCR Not Detected (NotDetected); Human Metapneumovirus PCR Not Detected (NotDetected); Influenza A PCR Not Detected (NotDetected); Influenza B PCR Not Detected (NotDetected); Mycoplasma pneumoniae PCR Not Detected (NotDetected); Parainfluenza Virus 1 PCR Not Detected (NotDetected); Parainfluenza Virus 2 PCR Not Detected (NotDetected); Parainfluenza Virus 3 PCR Not Detected (NotDetected); Parainfluenza Virus 4 PCR Not Detected (NotDetected); Respiratory Syncytial VirusPCR Not Detected (NotDetected); Rhinovirus/Enterovirus PCR Not Detected (NotDetected)
[2024-08-08 18:44] LABS: Troponin I High Sensitivity 127.1 pg/ml (0-20)
[2024-08-08] MEDS: OPTIRAY 320 100ml IV ONE (18:46)
--- NOTE | 2024-08-08 19:24 | CT Scan Report ---
EXAM: CT Abdomen and Pelvis With Intravenous Contrast INDICATION: Left lower quadrant pain. TECHNIQUE: Axial computed tomography images of the abdomen and pelvis with intravenous contrast. Sagittal and coronal reformatted images were created and reviewed. This CT exam was performed using one or more of the following dose reduction techniques: automated exposure control, adjustment of the mA and/or kV according to patient size, and/or use of iterative reconstruction technique. CONTRAST: 94 ml of Optiray 320 was administered intravenously. COMPARISON: No relevant prior studies available. FINDINGS: Limitations: None. Lung bases: No abnormality noted. Pleural space: No visualized pleural effusion or pneumothorax. Heart: No abnormality noted. Mediastinum: No abnormality noted. ABDOMEN: Liver: No abnormality noted. Gallbladder and bile ducts: Probable small stone in the gallbladder neck. No ductal dilatation or stone. Pancreas: Homogeneous enhancement. No mass, inflammation or ductal dilation. Spleen: No significant abnormality noted. Adrenals: No significant abnormality noted. Kidneys and ureters: 2 mm linear stone left kidney. Kidneys otherwise appear normal. No hydronephrosis. Stomach and bowel: Moderate amounts of stool in the distal colon. Moderate left colonic diverticulosis. There is minimal stranding in the splenic flexure of the colon along the inferior spleen series 2 image 35 through 37. PELVIS: Appendix: No findings to suggest acute appendicitis. Bladder: No filling defects to suggest mass or large stone. No inflammation. Reproductive: No abnormalities noted. ABDOMEN and PELVIS: Intraperitoneal space: No free air. No significant fluid collection. Bones/joints: Degenerative changes noted in the scoliotic spine. No acute osseous abnormality noted. Soft tissues: No significant abnormality noted. Vasculature: Atherosclerotic calcification of the aorta and branches. No aneurysm. Lymph nodes: No pathologically enlarged lymph nodes. IMPRESSION: 1. Findings strongly suspicious for mild acute diverticulitis at the splenic flexure. No complication. 2. 2 mm linear nonobstructing left kidney stone. ACT 112: Negative or not required by law. Electronically signed by Ida Steiner 08-08-2024 7:23 PM
[2024-08-08] MEDS: SODIUM CHLORIDE 0.9% 1,000 ML IV ONE ×2 (20:03→21:05)
[2024-08-08] MEDS: ACETAMINOPHEN 1,000 MG/100 ML VIAL IV STA (20:42)
--- NOTE | 2024-08-08 21:24 | History & Physical Report ---
Date of Service August 08, 2024 Assessment & Plan (1) Rhabdomyolysis: (2) Abnormal LFTs: (3) Sepsis: (4) Diverticulitis: (5) Giant cell arteritis: Plan The patient is an 83-year-old male with past medical history including hypertension, GERD, diabetes mellitus, mild cognitive impairment, memory loss, hypertension, BPH with LUTS, JANET, cerebrovascular disease, vascular parkinsonism and hyponatremia. He was most recently admitted to [facility] from 07/23- 07/31/2024, where he diagnosed with giant cell arteritis. He had been discharged on prednisone 50 mg daily for a and initial total of 14 days, with plans to adjust dosing as needed. He had been doing somewhat better until the past few days, when he developed decreased oral intake, some abdominal discomfort, and has been laying in bed for most of the past few days. Workup in the emergency department including laboratory suggestive of rhabdomyolysis, dehydration, and CT suggestive of mild acute diverticulitis at the splenic flexure. #Sepsis due to acute diverticulitis at splenic flexure- NPO Status post 1 L normal saline in the ED Continue Zosyn 4.5 g IV every 8 hours begun in the ED Pantoprazole 40 mg IV daily Zofran 4 mg IV every 6 hours NSS + KCl 20 mEq at 80 mL/h x 2 L Dilaudid 0.25 mg IV every 3 hours needed for moderate pain Dilaudid 0.5 mg IV every 3 hours needed for severe pain Avoid Tylenol due to transaminitis tinnitus and abnormal LFTs Rhabdomyolysis/acute kidney injury- CK 1296, troponin 111.8, creatinine 1.31 with baseline 1.06 Abnormal LFTs secondarily Follow chemistry profile, CBC with differential and magnesium level Of note respiratory BioFire test negative Likely secondary to sedentary process over the past several days, has been lying in bed due to severity of illness 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 Patient may only need a total of 3 doses, and at most would do 6 doses Diabetes mellitus- Holding Januvia Glucose 209 on admission Placed on Accu-Cheks with NovoLog SSI Vascular parkinsonism- Has not been on treatment to this point Aphthous stomatitis- Mucous membranes primarily dry at this point with no obvious ulcerations If recurs, would recommend dental paste with triamcinolone in [place] Mastoiditis/chronic sinusitis- Patient had been on Unasyn x 5 days, and then was to complete a course of Augmentin on 08/03 History of Present Illness Chief Complaint: The patient presents to the emergency department with worsening confusion over the past few days, complains of abdominal pain, and decreased physical activity, remaining in bed for the most part over the past few days. Primary Care Provider: Acosta West MD The patient is an 83-year-old male with past medical history including hypertension, GERD, diabetes mellitus, mild cognitive impairment, memory loss, hypertension, BPH with LUTS, JANET, cerebrovascular disease, vascular parkinsonism and hyponatremia. He was most recently admitted to [facility] from 07/23- 07/31/2024, where he diagnosed with giant cell arteritis. He had been discharged on prednisone 50 mg daily for a and initial total of 14 days, with plans to adjust dosing as needed. He had been doing somewhat better until the past few days, when he developed decreased oral intake, some abdominal discomfort, and has been laying in bed for most of the past few days. Workup in the emergency department including laboratory suggestive of rhabdomyolysis, dehydration, and CT suggestive of mild acute diverticulitis at the splenic flexure. Allergies Allergy/AdvReac Type Severity Reaction Status Date / Time house dust mite Allergy Verified 07/15/24 15:33 No Known Drug Allergies Allergy Verified 07/15/24 15:33 tree and shrub pollen Allergy Verified 07/15/24 15:33 Home Medications Medication Instructions Recorded Confirmed Type aspirin 81 mg tablet,delayed 81 mg PO DAILY 03/01/19 07/23/24 History release ketoconazole 2 % topical cream 1 applic topical DAILY PRN Skin 09/24/21 07/23/24 History Irritation multivitamin (Multiple Vitamins 1 tab PO DAILY 09/24/21 07/23/24 History tablet) lisinopril 10 mg tablet 10 mg PO DAILY 09/27/21 07/23/24 History fluticasone propionate 50 1 spray intranasal DAILY PRN 09/12/22 07/23/24 History mcg/actuation nasal Congestion spray,suspension sitagliptin phosphate 50 mg tablet 50 mg PO DAILY 02/02/24 07/23/24 History (Januvia) donepezil 10 mg tablet 10 mg PO HS #90 tabs 03/07/24 07/23/24 Rx ipratropium bromide 42 mcg (0.06 2 spray intranasal TID #15 mL 05/12/24 07/23/24 Rx %) nasal spray azelastine 137 mcg (0.1 %) nasal 2 spray intranasal BID #30 mL 06/08/24 07/23/24 Rx spray famotidine 40 mg tablet 40 mg PO HS 07/23/24 07/23/24 History omega-3 fatty acids 1,000 mg 2,000 mg PO DAILY 07/23/24 07/23/24 History capsule FIRST - Mouthwash BLM [Magic 5 ml PO Q12H PRN mouth pain #100 mL 07/31/24 Rx Mouthwash] amlodipine 5 mg tablet (Norvasc) 5 mg PO QAM #30 tabs 07/31/24 Rx amoxicillin 875 mg-potassium 1 tab PO BIDM #7 tabs 07/31/24 Rx clavulanate 125 mg tablet prednisone 50 mg tablet 50 mg PO DAILY #14 tabs 07/31/24 Rx sodium chloride 1,000 mg soluble 1,000 mg PO TID #90 tabs 07/31/24 Rx tablet Past Med/Surg History Problem List (Updated 08/09/24 @ 04:57 by Kristofer Ayoub MD) Acute kidney injury Abnormal LFTs Rhabdomyolysis Elevated brain natriuretic peptide (BNP) level (Acute) Non-ST elevation FL (NSTEMI) (Acute) Elevated CK (Acute) Elevated procalcitonin (Acute) Sepsis (Acute) Diverticulitis (Acute) Acute confusion (Acute) Giant cell arteritis Elevated erythrocyte sedimentation rate Hyponatremia Mastoiditis Abnormal x-ray of bone Aphthous stomatitis Generalized weakness (Acute) Dysarthria Chronic sinusitis, unspecified (Chronic) Vascular parkinsonism Cerebrovascular disease Presbylarynges (Chronic) Urinary symptom or sign Chronic serous otitis media Obstructive sleep apnea Allergic rhinitis Perforated nasal septum Enlarged prostate with lower urinary tract symptoms (LUTS) (Acute) Nocturnal hypoxemia Hypertension Skin cancer Dysfunction of left eustachian tube Sensorineural hearing loss (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 Gait disturbance Diabetic nephropathy Hypovitaminosis D Mixed hyperlipidemia due to type 2 diabetes mellitus Weight disorder Memory loss Mild cognitive impairment Medical History ETD (eustachian tube dysfunction) Dysfunction of right eustachian tube Hallux valgus (acquired), left foot Acquired hallux valgus of right foot Hammertoe of left foot Acquired hammer toe of right foot Diabetes mellitus with diabetic polyneuropathy Surgical History S/P cataract surgery History of transurethral resection of prostate History of appendectomy Myringotomy tube status S/P T&A (status post tonsillectomy and adenoidectomy) History of uvulopalatopharyngoplasty H/O sinus surgery History of prostate surgery H/O shoulder surgery Family History Mother Rheumatic fever Heart disease Heart murmur Father Cerebral artery occlusion Brother Hearing loss Heart murmur Lung disease Other Coronary heart disease No family history of adverse response to anesthesia No family history of bleeding disorder Social History Smoking Status: Never smoker Hx Alcohol Use: No Hx Substance Use: No Preferred Language: Chinese Communication Ability: Impaired Communication Ability Comment: confused, garbled speech Hearing Ability: 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 Family members supplied the majority of information. Physical Exam Physical Exam: The patient is awake, intermittently grimacing in pain, with probable source abdomen, normocephalic and atraumatic, lying in bed and in intermittent acute distress secondary to abdominal pain as noted HEENT--PERRL, EOMI, mucous membranes and oropharynx mildly dry. Neck--supple. No JVD. No bruits. Thyroid normal, trachea midline, no adenopathy. Heart--normal S1 and S2. No murmurs, rubs or gallops. Lungs--clear bilaterally, no respiratory distress, no accessory muscle use. Abdomen--decreased bowel sounds. Tender left lower quadrant and left lateral quadrant. Extremities--no cyanosis or clubbing. No edema. Dermatologic--normal skin turgor, normal color, no abnormal lymph nodes, no rash. Neurologic--cranial nerves II through XII grossly intact. Rheumatologic--normal range of motion. Psychiatric--responsiveness limited by underlying cognitive impairment, and current medical condition Results & Data Results & Data Vital Signs (Past 12 Hours) Vital Signs Temp Pulse Pulse Resp BP BP Pulse Ox 08/08/24 20:03 38.6 C H 08/08/24 19:01 103 H 20 148/84 H 93 08/08/24 18:47 96 H 08/08/24 17:43 98 H 20 96 08/08/24 17:13 36.9 C 113 H 17 172/112 H 95 O2 Del Method 08/08/24 20:03 08/08/24 19:01 Room Air 08/08/24 18:47 08/08/24 17:43 Room Air 08/08/24 17:13 Room Air Laboratory Results Laboratory Results WBC 13.34 K/ul (4.8-10.8) H 08/08/24 17:31 RBC 4.94 M/uL (4.70-6.10) 08/08/24 17:31 Hgb 13.5 g/dl (14.0-18.0) L 08/08/24 17:31 Hct 40.5 % (42.0-52.0) L 08/08/24 17:31 MCV 82.0 fL (80.0-100.0) 08/08/24 17: MCH 27.3 pg (25.0-34.0) 08/08/24 17: MCHC 33.3 g/dL (32.0-36.0) 08/08/24 17: RDW Std Deviation 43.6 fL (36.4-46.3) 08/08/24 17: RDW Coeff of Rosy 14.7 % (11.5-14.5) H 08/08/24 17:31 Plt Count 366 K/uL (130-400) 08/08/24 17: MPV 9.5 fL (9.4-12.4) 08/08/24 17: Immature Gran % (Auto) 0.8 % 08/08/24 17: Neut % (Auto) 89.5 % 08/08/24 17: Lymph % (Auto) 5.5 % 08/08/24 17: [place] % (Auto) 4.1 % 08/08/24 17: Eos % (Auto) 0.0 % 08/08/24: Baso % (Auto) 0.1 % 08/08/24: Neut # (Auto) 11.93 K/uL (1.40-6.50) H 08/08/24: Lymph # (Auto) 0.74 K/uL (1.20-3.40) L 08/08/24: [place] # (Auto) 0.55 K/uL (0.11-0.59) 08/08/24: Eos # (Auto) 0.00 K/uL (0.00-0.50) 08/08/24: Baso # (Auto) 0.01 K/uL (0.00-0.20) 08/08/24: Immature Gran # (Auto) 0.11 K/uL (0.01-0.20) 08/08/24: ESR 105 mm/hr (0-20) H 08/08/24 17: PT 11.6 Seconds (9.0-12.0) 08/08/24: INR 1.1 (0.9-1.1) 08/08/24 17: Sodium 131 mmol/L (136-145) L 08/08/24: Potassium 4.7 mmol/L (3.5-5.1) 08/08/24: Chloride 90 mmol/L (98-107) L 08/08/24: Carbon Dioxide 31 mmol/L (21-32) 08/08/24: Anion Gap 10 (3-11) 08/08/24 17: BUN 27 mg/dl (6-23) H 08/08/24 17: Creatinine 1.31 mg/dl (0.6-1.4) 08/08/24 17: Est Cr Clr Drug Dosing 44.1 ml/min 08/08/24: eGFR 54.01 08/08/24 17: BUN/Creatinine Ratio 20.6 (10-20) H 08/08/24 17:31 Glucose 209 mg/dl (70-99(Fasting)) H 08/08/24 17: POC Glucose 219 mg/dl (70-99) H 08/08/24 23:32 Lactate 2.0 mmol/L (0.4-2.0) 08/08/24 17: Calcium 9.5 mg/dl (8.6-10.3) 08/08/24 17: Magnesium 1.8 mg/dl (1.7-2.4) 08/08/24 17: Total Bilirubin 0.7 mg/dl (0.2-1.0) 08/08/24 17: AST 100 U/L (13-39) H 08/08/24 17: ALT 54 U/L (7-52) H 08/08/24 17:31 Alkaline Phosphatase 111 U/L (34-104) H 08/08/24 17: Total Creatine Kinase 1296 U/L (30-223) H 08/08/24 17:31 Troponin I High Sens 111.8 pg/ml (0-20) H* 08/08/24 Unknown C-Reactive Protein 10.13 mg/dl (0-0.5) H 08/08/24 17: B-Natriuretic Peptide 240 pg/ml (0-100) H 08/08/24 17:31 Total Protein 7.6 gm/dl (6.0-8.3) 08/08/24 17:31 Albumin 3.4 gm/dl (3.4-5.0) 08/08/24 17: Globulin 4.2 gm/dl (2.5-4.0) H 08/08/24 17: Albumin/Globulin Ratio 0.8 (0.9-2) L 08/08/24 17:31 Procalcitonin 0.65 ng/ml (0-0.5) H 08/08/24 17: TSH 1.330 uIu/ml (0.300-4.500) 08/08/24 17:31 Urine Color Yellow 08/09/24 00:45 Urine Appearance Clear (Clear) 08/09/24 00:45 Urine pH 5.0 (4.5-7.5) 08/09/24 00:45 Ur Specific Foreman > 1.045 (1.000-1.030) H 08/09/24 00:45 Urine Protein 2+ (Negative) H 08/09/24 00:45 Urine Glucose (UA) 2+ (Negative) H 08/09/24 00:45 Urine Ketones 1+ (Negative) H 08/09/24 00:45 Urine Blood 1+ (Negative) H 08/09/24 00:45 Urine Nitrite Negative (Negative) 08/09/24 00:45 Urine Bilirubin Negative (Negative) 08/09/24 00:45 Urine Urobilinogen Negative (Negative) 08/09/24 00:45 Ur Leukocyte Esterase Negative (Negative) 08/09/24 00:45 Urine WBC (Auto) 0-5 /hpf (0-5) 08/09/24 00:45 Urine RBC (Auto) 0-2 /hpf (0-2) 08/09/24 00:45 U Hyaline Cast (Auto) 0-2 /lpf (0-2) 08/09/24 00:45 U Epithel Cells (Auto) 0-2 /hpf (0-2) 08/09/24 00:45 Urine Bacteria (Auto) None Seen (None Seen) 08/09/24 00:45 Nasal Screen MRSA (PCR) Negative (Negative) 08/09/24 00:45 Adenovirus (PCR) Not Detected (NotDetected) 08/08/24 17:20 B. pertussis DNA (PCR) Not Detected (NotDetected) 08/08/24 17:20 B.parapertussis DNA PCR Not Detected (NotDetected) 08/08/24 17:20 C. pneumoniae DNA (PCR) Not Detected (NotDetected) 08/08/24 17:20 Coronavirus OC43 (PCR) Not Detected (NotDetected) 08/08/24 17:20 Coronavirus HKU1 (PCR) Not Detected (NotDetected) 08/08/24 17:20 Coronavirus 229E (PCR) Not Detected (NotDetected) 08/08/24 17:20 SARS-CoV-2 (PCR) Not Detected (NotDetected) 08/08/24 17:20 Coronavirus NL63 (PCR) Not Detected (NotDetected) 08/08/24 17:20 Human Metapneumovir PCR Not Detected (NotDetected) 08/08/24 17:20 Influenza Type A (PCR) Not Detected (NotDetected) 08/08/24 17:20 Influenza Type B (PCR) Not Detected (NotDetected) 08/08/24 17:20 M. pneumoniae (PCR) Not Detected (NotDetected) 08/08/24 17:20 Parainfluenza 1 (PCR) Not Detected (NotDetected) 08/08/24 17:20 Parainfluenza 2 (PCR) Not Detected (NotDetected) 08/08/24 17:20 Parainfluenza 3 (PCR) Not Detected (NotDetected) 08/08/24 17:20 Parainfluenza 4 (PCR) Not Detected (NotDetected) 08/08/24 17:20 RSV (PCR) Not Detected (NotDetected) 08/08/24 17:20 Entero/Rhino (PCR) Not Detected (NotDetected) 08/08/24 17:20 Impressions Chest X-Ray 08/08/24 17:19 INDICATION: Cough. TECHNIQUE: Frontal radiograph of the chest. COMPARISON: Radiograph from 07/22/2024. FINDINGS: Cardiomegaly. Subsegmental atelectasis in the lung bases. Pulmonary vasculature appear within normal limits. No infiltrate, pleural effusion or pneumothorax. No acute osseous abnormality evident. IMPRESSION: No acute cardiopulmonary process. Electronically signed by Aknit Leyva 08-08-2024 6:[address] 08/08/24 17:19 INDICATION: Pain and injury. COMPARISON: CT from 06/27/2024 TECHNIQUE: Axial CT images of the head were obtained without IV contrast. Coronal and sagittal reformations were reviewed. FINDINGS: Harding-white differentiation is relatively preserved. No mass, mass effect or midline shift. Chronic ischemic white matter changes. No evidence of acute large territorial infarction or acute intracranial hemorrhage. Ventricles appear normal in size. Basal cisterns are patent. No depressed calvarial fracture. Fluid noted in the mastoid air cells, similar to prior. IMPRESSION: No acute intracranial process. Electronically signed by Ankit Leyva 08-08-2024 6:02 PM Abdomen/Pelvis CT 08/08/24 17:41 EXAM: CT Abdomen and Pelvis With Intravenous Contrast INDICATION: Left lower quadrant pain. TECHNIQUE: Axial computed tomography images of the abdomen and pelvis with intravenous contrast. Sagittal and coronal reformatted images were created and reviewed. This CT exam was performed using one or more of the following dose reduction techniques: automated exposure control, adjustment of the mA and/or kV according to patient size, and/or use of iterative reconstruction technique. CONTRAST: 94 ml of Optiray 320 was administered intravenously. COMPARISON: No relevant prior studies available. FINDINGS: Limitations: None. Lung bases: No abnormality noted. Pleural space: No visualized pleural effusion or pneumothorax. Heart: No abnormality noted. Mediastinum: No abnormality noted. ABDOMEN: Liver: No abnormality noted. Gallbladder and bile ducts: Probable small stone in the gallbladder neck. No ductal dilatation or stone. Pancreas: Homogeneous enhancement. No mass, inflammation or ductal dilation. Spleen: No significant abnormality noted. Adrenals: No significant abnormality noted. Kidneys and ureters: 2 mm linear stone left kidney. Kidneys otherwise appear normal. No hydronephrosis. Stomach and bowel: Moderate amounts of stool in the distal colon. Moderate left colonic diverticulosis. There is minimal stranding in the splenic flexure of the colon along the inferior spleen series 2 image 35 through 37. PELVIS: Appendix: No findings to suggest acute appendicitis. Bladder: No filling defects to suggest mass or large stone. No inflammation. Reproductive: No abnormalities noted. ABDOMEN and PELVIS: Intraperitoneal space: No free air. No significant fluid collection. Bones/joints: Degenerative changes noted in the scoliotic spine. No acute osseous abnormality noted. Soft tissues: No significant abnormality noted. Vasculature: Atherosclerotic calcification of the aorta and branches. No aneurysm. Lymph nodes: No pathologically enlarged lymph nodes. IMPRESSION: 1. Findings strongly suspicious for mild acute diverticulitis at the splenic flexure. No complication. 2. 2 mm linear nonobstructing left kidney stone. ACT 112: Negative or not required by law. Electronically signed by Ida Steiner 08-08-2024 7:23 PM Code Status & VTE Plan Code Status DNR/DNI VTE Prophylaxis Plan VTE Prophylaxis will be ordered: Yes PG Care Time/CCT Total # of Minutes Spent Total Time Spent with Patient: Total time spent is greater than 50% in coordination of care (as documented) at patient's floor/unit and/or counseling patient: Coding Level of Care Code 86000 INT INP/OBS CARE MIN Diagnoses Rhabdomyolysis M62.82 Abnormal LFTs R79.89 Sepsis A41.9 Diverticulitis K57.92 Giant cell arteritis M31.6
[2024-08-08] MEDS: PIPERACILLIN/TAZOBACTAM 4.5 GM/100 ML BAG IV ONE (21:27)
[2024-08-08] MEDS: SODIUM CHLORIDE 0.9% 500 ML IV ONE (21:29)
[2024-08-08] MEDS: MAGNESIUM SULFATE / D5W 1 GM/100 ML BAG IV ONE (21:30)
[2024-08-08] MEDS: HYDROmorphone INJ 0.5 MG/0.5 ML SYR IV PRN (21:35)
[2024-08-08] MEDS: SODIUM CHLORIDE 0.9% 1,000 ML IV SCH (22:06)
[2024-08-08] MEDS: PANTOprazole 40 MG/10 ML SYR IV ONE (22:07)
[2024-08-08] MEDS: HYDROCORTISONE SOD SUCCINATE 100 MG/2 ML VIAL IV STA (22:08)
--- NOTE | 2024-08-08 22:28 | Emergency Department Note ---
Impression & Plan Acute confusion, Diverticulitis, Sepsis, Elevated procalcitonin, Elevated CK, Non-ST elevation NE (NSTEMI), Elevated brain natriuretic peptide (BNP) level ED Provider Note HISTORY OF PRESENT ILLNESS: Patient is an 83-year-old male presenting with altered mental status. Patient has a history of giant cell arteritis and was admitted recently and this diagnosis was made. He was started on high-dose steroids and is currently taking 50 mg daily. Family at bedside report that the patient has been increasingly lethargic and more weak over the last 48 hours. They report that last week the patient was up and walking at his rehab facility, and in the last 2 days the patient's been unable to get up out of bed and complains of feeling very rundown and weak. recently was around the patient and she tested positive for COVID-19. Patient reportedly did not have any fevers at his facility. No reported complaints on arrival, but patient does seem very tender on palpation of his abdomen. ROS: as above PHYSICAL EXAM: Constitutional: Patient appears in no acute distress. HENT: Head: Normocephalic and atraumatic. Eyes: EOMI, PERRL Mouth/Throat: Mucous membranes moist. Neck: Trachea midline. Neck supple. Cardiovascular: Tachycardic with regular rhythm. No murmurs, rubs or gallops. Intact distal pulses. Pulmonary/Chest: No respiratory distress. Breath sounds clear and equal bilaterally. No wheezes or rales. Abdominal: Abdomen soft, no rebound or guarding. LUQ TTP Musculoskeletal: No edema, tenderness or deformity noted. Skin: Warm and dry. No rash, erythema, pallor or cyanosis Neurological: Alert but confused. CN II-XII grossly intact, moving all extremities equally and fully. MDM: - Vitals signs showed hypertension and tachycardia. Patient did become hypoxic in the emergency department and started on supplemental oxygen. He also developed a fever and was given 1g IV tylenol - History obtained via patient's family, given patient's confusion. History as above. - Chronic conditions affecting care: vascular parkinsonism; HTN; DM-2; JANET; fine cell arteritis - Differential diagnoses include, but are not limited to: UTI; pneumonia; CVA; intracranial hemorrhage; ACS; diverticulitis; colitis; viral syndrome - Order placed for continuous cardiac monitoring. At this time, monitor showed rate of 83 bpm with normal sinus rhythm, per my interpretation. - External medical records reviewed. Discharge summary dated 08/01/2024 was reviewed. Patient was admitted that time for waxing and waning confusion that has progressed over the last 6 weeks. He was diagnosed with giant cell arteritis during his admission. - EKG interpreted by myself showed normal sinus rhythm. Rate 100 bpm. QT 332. No acute ischemic changes. - Laboratory workup interpreted by myself showed leukocytosis (WBC 13.34); normal PT/INR; elevated ESR (105); hyponatremia (Na 131); normal lactate; transaminitis (AST 100; ALT 54) with normal total bilirubin; elevated CK (1296); elevated CRP (10.13); elevated BNP (240); elevated troponin (127.1); elevated procalcitonin (0.65); normal TSH - Blood cultures obtained - CXR negative for pneumonia, per my interpretation - CT head wo contrast negative for acute intracranial pathology - Patient given a total of 2.5L NS in ER. Patient sepsis volume fluid calculation based on ideal body weight is 2263.50 mL - CT abdomen/pelvis with IV contrast showed findings suspicious for mild acute diverticulitis at the splenic flexure. - Patient given IV zosyn - Viral respiratory panel negative - Repeat troponin elevated but downtrending to 111.8 - Discussion was had with rn case manager about patient's case and need for admission - Hospitalist consulted for admission - Patient admitted to [facility] hospitalist service for further evaluation and management. ASSESSMENT AND PLAN: Diagnosis: Acute confusion; sepsis; diverticulitis; NSTEMI; elevated CK; elevated procalcitonin; elevated BNP Plan: Admit Past Med/Surg History Problem List (Updated 08/09/24 @ 01:00 by Aida Molina MD) Elevated brain natriuretic peptide (BNP) level (Acute) Non-ST elevation NE (NSTEMI) (Acute) Elevated CK (Acute) Elevated procalcitonin (Acute) Sepsis (Acute) Diverticulitis (Acute) Acute confusion (Acute) Giant cell arteritis Elevated erythrocyte sedimentation rate Hyponatremia Mastoiditis Abnormal x-ray of bone Aphthous stomatitis Generalized weakness (Acute) Dysarthria Chronic sinusitis, unspecified (Chronic) Vascular parkinsonism Cerebrovascular disease Presbylarynges (Chronic) Urinary symptom or sign Chronic serous otitis media Obstructive sleep apnea Allergic rhinitis Perforated nasal septum Enlarged prostate with lower urinary tract symptoms (LUTS) (Acute) Nocturnal hypoxemia Hypertension Skin cancer Dysfunction of left eustachian tube Sensorineural hearing loss (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 Gait disturbance Diabetic nephropathy Hypovitaminosis D Mixed hyperlipidemia due to type 2 diabetes mellitus Weight disorder Memory loss Mild cognitive impairment Medical History ETD (eustachian tube dysfunction) Dysfunction of right eustachian tube Hallux valgus (acquired), left foot Acquired hallux valgus of right foot Hammertoe of left foot Acquired hammer toe of right foot Diabetes mellitus with diabetic polyneuropathy Surgical History S/P cataract surgery History of transurethral resection of prostate History of appendectomy Myringotomy tube status S/P T&A (status post tonsillectomy and adenoidectomy) History of uvulopalatopharyngoplasty H/O sinus surgery History of prostate surgery H/O shoulder surgery Family History Mother Rheumatic fever Heart disease Heart murmur Father Cerebral artery occlusion Brother Hearing loss Heart murmur Lung disease Other Coronary heart disease No family history of adverse response to anesthesia No family history of bleeding disorder Social History Smoking Status: Never smoker Hx Alcohol Use: No Hx Substance Use: No Preferred Language: Bulgarian Communication Ability: Impaired Communication Ability Comment: confused, garbled speech Hearing Ability: Hard of Hearing Outbound Sales Agent Required: No Beliefs That Will Affect Care: None marital status: Current Living Situation: Rehab current occupational status: retired Other Information That Helps Us Care for You: Yes ([place]) Feels Safe at Home: Yes Safety Concerns: Feels Safe At This Time Assistive Devices: Glasses, Hearing Aid - Bilateral and Walker Allergies Allergies Allergy/AdvReac Type Severity Reaction Status Date / Time house dust mite Allergy Verified 07/15/24 15:33 No Known Drug Allergies Allergy Verified 07/15/24 15:33 tree and shrub pollen Allergy Verified 07/15/24 15:33 Home Meds Home Medications Medication Instructions Recorded Confirmed aspirin 81 mg tablet,delayed 81 mg PO DAILY 09/03/19 01/25/25 release ketoconazole 2 % topical cream 1 applic topical DAILY PRN Skin 09/24/21 07/23/24 Irritation multivitamin (Multiple Vitamins 1 tab PO DAILY 09/24/21 07/23/24 tablet) lisinopril 10 mg tablet 10 mg PO DAILY 09/27/21 07/23/24 fluticasone propionate 50 1 spray intranasal DAILY PRN 09/12/22 07/23/24 mcg/actuation nasal Congestion spray,suspension sitagliptin phosphate 50 mg tablet 50 mg PO DAILY 02/02/24 07/23/24 (Januvia) famotidine 40 mg tablet 40 mg PO HS 07/23/24 07/23/24 omega-3 fatty acids 1,000 mg 2,000 mg PO DAILY 07/23/24 07/23/24 capsule Previous Rx's Medication Instructions Recorded donepezil 10 mg tablet 10 mg PO HS #90 tabs 03/07/24 ipratropium bromide 42 mcg (0.06 2 spray intranasal TID #15 mL 05/12/24 %) nasal spray azelastine 137 mcg (0.1 %) nasal 2 spray intranasal BID #30 mL 06/08/24 spray FIRST - Mouthwash BLM [Magic 5 ml PO Q12H PRN mouth pain #100 mL 07/31/24 Mouthwash] amlodipine 5 mg tablet (Norvasc) 5 mg PO QAM #30 tabs 07/31/24 amoxicillin 875 mg-potassium 1 tab PO BIDM #7 tabs 07/31/24 clavulanate 125 mg tablet prednisone 50 mg tablet 50 mg PO DAILY #14 tabs 07/31/24 sodium chloride 1,000 mg soluble 1,000 mg PO TID #90 tabs 07/31/24 tablet Results & Data (ED) Vital Signs Vital Signs - 24 hr 08/08/24 17:13 08/08/24 17:43 08/08/24 18:47 Temperature 36.9 C Temperature Source Oral Pulse Rate 113 H 98 H 96 H Pulse Rate [Apical] Pulse Rhythm Regular Respiratory Rate 17 20 Blood Pressure 172/112 H Blood Pressure [Right Arm] Blood Pressure Mean 132 Blood Pressure Mean [Right Arm] Blood Pressure Position [Right Arm] Pulse Oximetry 95 96 Oxygen Delivery Method Room Air Room Air Sepsis New/Unexplained Change in Mental Status No Sepsis Action Taken by Nursing No Action Required 08/08/24 19:01 08/08/24 20:03 Temperature 38.6 C H Temperature Source Rectal Pulse Rate Pulse Rate [Apical] 103 H Pulse Rhythm Respiratory Rate 20 Blood Pressure Blood Pressure [Right Arm] 148/84 H Blood Pressure Mean Blood Pressure Mean [Right Arm] 105 Blood Pressure Position [Right Arm] Semi-fowlers Pulse Oximetry 93 Oxygen Delivery Method Room Air Sepsis New/Unexplained Change in Mental Status Sepsis Action Taken by Nursing Laboratory Data 08/08/24 17:31 08/08/24 17:31 Lab Results 08/08/24 08/08/24 Range/Units 17:20 17:31 WBC 13.34 H (4.8-10.8) K/ul RBC 4.94 (4.70-6.10) M/uL Hgb 13.5 L (14.0-18.0) g/dl Hct 40.5 L (42.0-52.0) % MCV 82.0 (80.0-100.0) fL MCH 27.3 (25.0-34.0) pg MCHC 33.3 (32.0-36.0) g/dL RDW Std Deviation 43.6 (36.4-46.3) fL RDW Coeff of Rosy 14.7 H (11.5-14.5) % Plt Count 366 (130-400) K/uL MPV 9.5 (9.4-12.4) fL Immature Gran % (Auto) 0.8 % Neut % (Auto) 89.5 % Lymph % (Auto) 5.5 % [place] % (Auto) 4.1 % Eos % (Auto) 0.0 % Baso % (Auto) 0.1 % Neut # (Auto) 11.93 H (1.40-6.50) K/uL Lymph # (Auto) 0.74 L (1.20-3.40) K/uL [place] # (Auto) 0.55 (0.11-0.59) K/uL Eos # (Auto) 0.00 (0.00-0.50) K/uL Baso # (Auto) 0.01 (0.00-0.20) K/uL Immature Gran # (Auto) 0.11 (0.01-0.20) K/uL ESR 105 H (0-20) mm/hr PT 11.6 (9.0-12.0) Seconds INR 1.1 (0.9-1.1) Sodium 131 L (136-145) mmol/L Potassium 4.7 (3.5-5.1) mmol/L Chloride 90 L (98-107) mmol/L Carbon Dioxide 31 (21-32) mmol/L Anion Gap 10 (3-11) BUN 27 H (6-23) mg/dl Creatinine 1.31 (0.6-1.4) mg/dl Est Cr Clr Drug Dosing 44.1 ml/min eGFR 54.01 BUN/Creatinine Ratio 20.6 H (10-20) Glucose 209 H (70-99(Fasting)) mg/dl Lactate 2.0 (0.4-2.0) mmol/L Calcium 9.5 (8.6-10.3) mg/dl Magnesium 1.8 (1.7-2.4) mg/dl Total Bilirubin 0.7 (0.2-1.0) mg/dl AST 100 H (13-39) U/L ALT 54 H (7-52) U/L Alkaline Phosphatase 111 H (34-104) U/L Total Creatine Kinase 1296 H (30-223) U/L Troponin I High Sens 127.1 H* (0-20) pg/ml C-Reactive Protein 10.13 H (0-0.5) mg/dl B-Natriuretic Peptide 240 H (0-100) pg/ml Total Protein 7.6 (6.0-8.3) gm/dl Albumin 3.4 (3.4-5.0) gm/dl Globulin 4.2 H (2.5-4.0) gm/dl Albumin/Globulin Ratio 0.8 L (0.9-2) Procalcitonin 0.65 H (0-0.5) ng/ml TSH 1.330 (0.300-4.500) uIu/ml Adenovirus (PCR) Not Detected (NotDetected) B. pertussis DNA (PCR) Not Detected (NotDetected) B.parapertussis DNA PCR Not Detected (NotDetected) C. pneumoniae DNA (PCR) Not Detected (NotDetected) Coronavirus OC43 (PCR) Not Detected (NotDetected) Coronavirus HKU1 (PCR) Not Detected (NotDetected) Coronavirus 229E (PCR) Not Detected (NotDetected) SARS-CoV-2 (PCR) Not Detected (NotDetected) Coronavirus NL63 (PCR) Not Detected (NotDetected) Human Metapneumovir PCR Not Detected (NotDetected) Influenza Type A (PCR) Not Detected (NotDetected) Influenza Type B (PCR) Not Detected (NotDetected) M. pneumoniae (PCR) Not Detected (NotDetected) Parainfluenza 1 (PCR) Not Detected (NotDetected) Parainfluenza 2 (PCR) Not Detected (NotDetected) Parainfluenza 3 (PCR) Not Detected (NotDetected) Parainfluenza 4 (PCR) Not Detected (NotDetected) RSV (PCR) Not Detected (NotDetected) Entero/Rhino (PCR) Not Detected (NotDetected) Administered Medications Hydromorphone HCl (Hydromorphone Inj 0.5 Mg/0.5 Ml Syr) 0.5 mg IV Q3H PRN PRN Reason: Severe Pain (Scale 7, 8, 9,10) Stop: 08/22/24 21:12 Last Admin: 08/08/24 21:35 Dose: 0.5 mg Documented By: GIULIANA Sodium Chloride (Nss) 1,000 mls @ 80 mls/hr IV .[id number] LINDA Stop: 08/09/24 22:14 Last Admin: 08/08/24 22:06 Dose: 80 mls/hr Documented By: GIULIANA Discontinued Medications Hydrocortisone Sodium Succinate (Hydrocortisone Sod Succinate 100 Mg/2 Ml Vial) 50 mg IV NOW STA Stop: 08/08/24 21:22 Last Admin: 08/08/24 22:08 Dose: 50 mg Documented By: GIULIANA Sodium Chloride (Nss) 1,000 mls @ 999 mls/hr IV .Q1H1M ONE Stop: 08/08/24 20:49 Last Infusion: 08/08/24 21:13 Dose: Infused Documented By: Admin: 08/08/24 20:03 Dose: 999 mls/hr Documented By: MADY Piperacillin Sod/Tazobactam Sod (Zosyn) 4.5 gm in 100 mls @ 200 mls/hr IV NOW ONE; Protocol Stop: 08/08/24 20:18 Last Infusion: 08/08/24 21:57 Dose: Infused Documented By: Admin: 08/08/24 21:27 Dose: 200 mls/hr Documented By: ANTD Acetaminophen (Ofirmev) 1,000 mg in 100 mls @ 400 mls/hr IV NOW STA Stop: 08/08/24 20:24 Last Infusion: 08/08/24 20:51 Dose: Infused Documented By: Admin: 08/08/24 20:42 Dose: 400 mls/hr Documented By: ANTD Sodium Chloride (Nss) 1,000 mls @ 999 mls/hr IV .Q1H1M ONE Stop: 08/08/24 21:33 Last Infusion: 08/08/24 21:57 Dose: Infused Documented By: Admin: 08/08/24 21:05 Dose: 999 mls/hr Documented By: ANTD Sodium Chloride (Nss) 500 mls @ 999 mls/hr IV .Q31M ONE Stop: 08/08/24 21:03 Last Infusion: 08/08/24 22:17 Dose: Infused Documented By: Admin: 08/08/24 21:29 Dose: 999 mls/hr Documented By: GIULIANA Magnesium Sulfate/Dextrose (Magnesium Sulfate / D5w) 1 gm in 100 mls @ 50 mls/hr IV ONE ONE Stop: 08/08/24 23:11 Last Infusion: 08/08/24 23:41 Dose: Infused Documented By: Admin: 08/08/24 21:30 Dose: 50 mls/hr Documented By: ANTD Pantoprazole Sodium (Protonix) 40 mg in 10 mls @ 5 mls/min IV NOW ONE Stop: 08/08/24 21:15 Last Admin: 08/08/24 22:07 Dose: 5 mls/min Documented By: GIULIANA Ioversol (Optiray 320 100ml) 94 ml IV ONCE ONE Stop: 08/08/24 18:46 Last Admin: 08/08/24 18:46 Dose: 94 ml Documented By: [facility] Imaging Data Radiologist's Impression: Chest X-Ray 08/08/24 17:19 INDICATION: Cough. TECHNIQUE: Frontal radiograph of the chest. COMPARISON: Radiograph from 07/22/2024. FINDINGS: Cardiomegaly. Subsegmental atelectasis in the lung bases. Pulmonary vasculature appear within normal limits. No infiltrate, pleural effusion or pneumothorax. No acute osseous abnormality evident. IMPRESSION: No acute cardiopulmonary process. Electronically signed by Ankit Leyva 08-08-2024 6:[address] 08/08/24 17:19 INDICATION: Pain and injury. COMPARISON: CT from 06/27/2024 TECHNIQUE: Axial CT images of the head were obtained without IV contrast. Coronal and sagittal reformations were reviewed. FINDINGS: Harding-white differentiation is relatively preserved. No mass, mass effect or midline shift. Chronic ischemic white matter changes. No evidence of acute large territorial infarction or acute intracranial hemorrhage. Ventricles appear normal in size. Basal cisterns are patent. No depressed calvarial fracture. Fluid noted in the mastoid air cells, similar to prior. IMPRESSION: No acute intracranial process. Electronically signed by Ankit Leyva 08-08-2024 6:02 PM Abdomen/Pelvis CT 08/08/24 17:41 EXAM: CT Abdomen and Pelvis With Intravenous Contrast INDICATION: Left lower quadrant pain. TECHNIQUE: Axial computed tomography images of the abdomen and pelvis with intravenous contrast. Sagittal and coronal reformatted images were created and reviewed. This CT exam was performed using one or more of the following dose reduction techniques: automated exposure control, adjustment of the mA and/or kV according to patient size, and/or use of iterative reconstruction technique. CONTRAST: 94 ml of Optiray 320 was administered intravenously. COMPARISON: No relevant prior studies available. FINDINGS: Limitations: None. Lung bases: No abnormality noted. Pleural space: No visualized pleural effusion or pneumothorax. Heart: No abnormality noted. Mediastinum: No abnormality noted. ABDOMEN: Liver: No abnormality noted. Gallbladder and bile ducts: Probable small stone in the gallbladder neck. No ductal dilatation or stone. Pancreas: Homogeneous enhancement. No mass, inflammation or ductal dilation. Spleen: No significant abnormality noted. Adrenals: No significant abnormality noted. Kidneys and ureters: 2 mm linear stone left kidney. Kidneys otherwise appear normal. No hydronephrosis. Stomach and bowel: Moderate amounts of stool in the distal colon. Moderate left colonic diverticulosis. There is minimal stranding in the splenic flexure of the colon along the inferior spleen series 2 image 35 through 37. PELVIS: Appendix: No findings to suggest acute appendicitis. Bladder: No filling defects to suggest mass or large stone. No inflammation. Reproductive: No abnormalities noted. ABDOMEN and PELVIS: Intraperitoneal space: No free air. No significant fluid collection. Bones/joints: Degenerative changes noted in the scoliotic spine. No acute osseous abnormality noted. Soft tissues: No significant abnormality noted. Vasculature: Atherosclerotic calcification of the aorta and branches. No aneurysm. Lymph nodes: No pathologically enlarged lymph nodes. IMPRESSION: 1. Findings strongly suspicious for mild acute diverticulitis at the splenic flexure. No complication. 2. 2 mm linear nonobstructing left kidney stone. ACT 112: Negative or not required by law. Electronically signed by Ida Steiner 08-08-2024 7:23 PM Discharge Plan Visit Data Chief Complaint: Illness Stated Complaint: ILLNESS ED Provider: Aida Molina Discharge Problem: Acute confusion, Diverticulitis, Sepsis, Elevated procalcitonin, Elevated CK, Non-ST elevation NE (NSTEMI), Elevated brain natriuretic peptide (BNP) level Patient Disposition: Admitted As Inpatient Discharge Instructions Interventions: ED Discharge Assessment Last Done: 08/08/24 22:49
[2024-08-08] MEDS ORDERED: GLUCOSE 10 TAB/TUBE PO PRN (23:42)
[2024-08-08] MEDS ORDERED: DEXTROSE 50% 50 ML SYRINGE IV PRN (23:42)
[2024-08-08] MEDS ORDERED: GLUCOSE 40% GEL 15 GM TUBE PO PRN (23:42)
[2024-08-08] MEDS ORDERED: GLUCAGON FOR INJ 1 MG VIAL SQ PRN (23:42)
[2024-08-08] MEDS ORDERED: CARBOHYDRATES FOR HYPOGLYCEMIA PO PRN (23:42)
[2024-08-09 01:20] LABS: Appearance Urine Clear (Clear); Bacteria Urine Automated None Seen (None Seen); Bilirubin Urine Negative (Negative); Blood Urine 1+ (Negative); Cast Urine Automated 0-2 /lpf (0-2); Color Urine Yellow; Epithelial Cell Urine Auto 0-2 /hpf (0-2); Glucose Urine UA 2+ (Negative); Ketones Urine 1+ (Negative); Leukocyte Esterase Urine Negative (Negative); Nitrite Urine Negative (Negative); Protein Urine 2+ (Negative); RBC Urine Automated 0-2 /hpf (0-2); Specific Gravity Urine > 1.045 (1.000-1.030); Urobilinogen Urine Negative (Negative); WBC Urine Automated 0-5 /hpf (0-5)
[2024-08-09] MEDS: HYDROCORTISONE SOD 50 MG in SYRINGE 0 ML IV SCH (06:07)
[2024-08-09] MEDS: PIPERACILLIN/TAZOBACTAM 4.5 GM/100 ML BAG IV SCH (06:08)
[2024-08-09] MEDS ORDERED: Nursing to Pharmacy Communication SCH ×2 (06:15→20:30)
[2024-08-09] MEDS: INSULIN ASPART PER UNIT CHARGE SC STA (06:17)
[2024-08-09 06:31] LABS: Basophils # (auto) 0.02 K/uL (0.00-0.20); Basophils % (auto) 0.2 %; Hemoglobin 13.1 g/dl (14.0-18.0); Immature Granulocytes # (auto) 0.09 K/uL (0.01-0.20); Immature Granulocytes % (auto) 0.7 %; Lymphocytes # (auto) 0.82 K/uL (1.20-3.40); Lymphocytes % (auto) 6.5 %; Mean Corpuscular Hemoglobin 27.8 pg (25.0-34.0); Mean Corpuscular Hgb Conc 33.6 g/dL (32.0-36.0); Mean Corpuscular Volume 82.8 fL (80.0-100.0); Mean Platelet Volume 9.6 fL (9.4-12.4); Monocytes # (auto) 0.46 K/uL (0.11-0.59); Monocytes % (auto) 3.7 %; Neutrophils # (auto) 11.18 K/uL (1.40-6.50); Neutrophils % (auto) 88.9 %; Platelet Count 300 K/uL (130-400); RDW Coefficient of Variation 14.7 % (11.5-14.5); RDW Standard Deviation 44.3 fL (36.4-46.3); Red Blood Count 4.71 M/uL (4.70-6.10); White Blood Count 12.57 K/ul (4.8-10.8)
[2024-08-09 06:51] LABS: Albumin Globulin Ratio 0.9 (0.9-2); Albumin Level 3.1 gm/dl (3.4-5.0); BUN Creatinine Ratio 22.1 (10-20); Bilirubin,Total 0.5 mg/dl (0.2-1.0); Calcium 8.5 mg/dl (8.6-10.3); Creatinine Clr Calc Pharmacy 51.1 ml/min; Globulin 3.6 gm/dl (2.5-4.0); Magnesium 1.9 mg/dl (1.7-2.4); Potassium 4.6 mmol/L (3.5-5.1); Total Protein 6.7 gm/dl (6.0-8.3)
[2024-08-09 07:07] LABS: Troponin I High Sensitivity 88.4 pg/ml (0-20)
[2024-08-09 07:08] LABS: INR 1.1 (0.9-1.1); Partial Thromboplastin Ratio 0.9; Partial Thromboplastin Time 25 Seconds (21-31); Prothrombin Time 11.4 Seconds (9.0-12.0)
--- NOTE | 2024-08-09 07:08 | Hospitalist Progress Note ---
Date of Service August 09, 2024 Assessment & Plan (1) Diverticulitis: (2) Giant cell arteritis: (3) Acute kidney injury: (4) Rhabdomyolysis: Plan 1) Rhabdomyolysis: (2) Abnormal LFTs: (3) Sepsis: (4) Diverticulitis: (5) Giant cell arteritis: Recent PMHx He had been discharged on prednisone 50 mg daily for a and initial total of 14 days, with plans to adjust dosing as needed. He had been doing somewhat better until the past few days, when he developed decreased oral intake, some abdominal discomfort, and has been laying in bed for most of the past few days. 1) Sepsis due to acute diverticulitis at splenic flexure Zosyn 4.5 g IV every 8 hours begun in the ED stopped Unasyn, 3 g, IV, q6hrs started on 08/09/2024 Pantoprazole 40 mg IV daily; Zofran 4 mg IV every 6 hours NSS + KCl 20 mEq at 80 mL/h x 2 L Dilaudid 0.25 mg IV, q3hrs, PRN, moderate pain; Dilaudid 0.5 mg IV, q3hrs, PRN,severe pain Blood cultures pending, Ur Cx preliminary no growth CT-AP: Mild acute diverticulitis at splenic flexure, w/out complication. 2mm linear, non-obstructing kidney stone 2) Delirium/ mild-moderate dementia - could consider infectious vs. metabolic vs. 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 Had been on prednisone 50 mg daily, started during admission from 07/23-07/31/2024 Hydrocortisone 50 mg IV every 8 hours, for adrenal insufficiency dosing, stopped Placed patient back on prednisone, 50 mg, daily during hospital stay 5) Diabetes mellitus Holding Januvia Glucose 209 on admission Placed on Accu-Cheks with NovoLog SSI 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 to this point 7) Aphthous stomatitis Mucous membranes primarily dry at this point with no obvious ulcerations If recurs, would recommend dental paste with triamcinolone in Orabase 8) Mastoiditis/chronic sinusitis Patient had been on Unasyn x 5 days, and then was to complete a course of Augmentin on 08/03 9) AFib/ Atrial flutter - pt's metoprolol tartrate, 2.5 mg, IV given once 10) HTN - pt's lisinopril and amlodipine re-started Admission and Anticipated Discharge Date Admission Date: August 08, 2024 Supervising Physician Co-Signing Physician Notes I personally examined the patient and verified all aguilar points of history and exam, discussed case, and agree with decision making with Dr Chanel No meaningful HPI review of systems. Hard of hearing and does not have hearing aids and right now, however whenever he did have the hearing aids in and charged earlier with resident physician he still was not offering any meaningful HPI review of systems, and I try talking as well as writing without any meaningful HPI review of systems. He does look at me as though he is going to be conversational but does not really say anything meaningful. Vitals noted, in general he is awake seems to be easily confused no distress. HEENT normocephalic atraumatic mucous membranes moist. Cardio regular with no rubs murmurs or gallops lungs clear without rales rhonchi or wheezes abdomen soft has some left lower quadrant tenderness initially but no guarding rebound or rigidity, although on repeat examination it is not reliably reproducible. Deliriumexact etiology not entirely clear. One of her head on last week it seemed rather consistent with delirium from giant cell arteritis, whenever I talked with the after he had gone to [facility] it sounded like he was improvingand then obviously he was sent back to the hospital because he was declining againso while the giant cell arteritis and high-dose steroids certainly could both be deliriogenic risk factors, I doubt they are the culprit. He has a degree of a leukocytosis with unreliably reproducible left lower quadrant tenderness and it is possible that an infectious stressor such as diverticulitis or less likely a urinary tract infection could be causing his deliriumalthough I am not completely sold. Will trend inflammatory markers in addition to his white count, does not appear to require pseudomonal coverage so we will narrow his antibiotics to cover for gram-negative's and anaerobes, follow cultures, serial exams. I do wonder about dehydration given that is a very common culprit, I have not been able to actually visualize his CT scans imaging due to technical issues todaybut once that is resolved I would definitely be curious to see his fecal load as constipation followed by poor p.o. intake could certainly explain the whole story as well. Continue supportiv e care otherwise. Subjective The patient is an 83 yo M w/ PMHx including hypertension, GERD, diabetes mellitus, mild cognitive impairment, memory loss, hypertension, BPH with LUTS, JANET, cerebrovascular disease, vascular parkinsonism and hyponatremia. He was most recently admitted to [facility] from 07/23-07/31/2024, where he diagnosed with giant cell arteritis. Patient seen today and evaluated as best possible, but very hard of hearing and with at least a mild-moderate cognitive impairment that seemed to prevent him from responding and communicating effectively. Intermittently able to follow one-step commands and respond to attempted assessments of pain being experienced. Did seem to endorse some pain of the abdomen, ear/mastoid area, fr ontal head, and tongue through some non-verbal communication. Review of Systems Review of Systems: Unobtainable due to cognitive status Ear, Nose, Mouth, Throat: + ear pain (pain w/ palpation of ear and mastoid area) Gastrointestinal: + abdominal pain (seems to be present in umbilical area) Physical Exam Constitutional: well developed, well nourished and + altered mental status ENMT: Ears: + hearing impairment and + mastoid abnormality (patient appeared tender to palpation of mastoid area) Respiratory: normal respiratory effort, lungs clear to auscultation Cardiovascular: RRR, no murmur, no edema Gastrointestinal (Abdomen): Percussion/Palpation: + abdomen tender and abdomen soft Neurologic: awake and + confused Psychiatric: Orientation: alert; + not oriented to person, + not oriented to place and + not oriented to time Results & Data Results & Data Vital Signs (Past 12 Hours) Vital Signs Temp Pulse Pulse Resp BP BP Pulse Ox 08/09/24 02:51 36.6 C 100 H 18 144/75 H 93 08/09/24 00:30 08/08/24 23:50 37 C 81 178/84 H 93 08/08/24 23:30 81 08/08/24 22:49 80 17 141/74 H 99 08/08/24 22:30 82 08/08/24 22:18 99 08/08/24 22:00 83 18 106/66 99 08/08/24 21:42 83 L 08/08/24 20:03 38.6 C H 08/08/24 19:01 103 H 20 148/84 H 93 O2 Del Method O2 Flow Rate 08/09/24 02:51 Room Air 08/09/24 00:30 Room Air 08/08/24 23:50 Room Air 08/08/24 23:30 08/08/24 22:49 Oxymask 2 08/08/24 22:30 08/08/24 22:18 Oxymask 2 08/08/24 22:00 Oxymask 3 08/08/24 21:42 Nasal Cannula 0 08/08/24 20:03 08/08/24 19:01 Room Air
[2024-08-09] MEDS ORDERED: INSULIN ASPART PER UNIT CHARGE SC SCH ×2 (07:30)
[2024-08-09 07:40] LABS: Estimated Average Glucose 209 mg/dl; Hemoglobin A1C 8.9 % (4.5-5.6)
[2024-08-09] MEDS: PERFLUTREN LIPID MICROSPHERE (DEFINITY) IV ONE (08:18)
[2024-08-09] MEDS: PANTOprazole 40 MG/10 ML SYR IV SCH (08:29)
[2024-08-09] MEDS: AMPICILLIN/SULBACTAM SOD 3,000 MG/100 ML BAG IV SCH (12:20)
[2024-08-09] MEDS: INSULIN ASPART PER UNIT CHARGE SC SCH (12:39)
--- NOTE | 2024-08-09 13:14 | Billing Data ---
Date of Service August 09, 2024 Coding Level of Care Code 75874 SUB INP/OBS CARE MIN
--- NOTE | 2024-08-09 15:05 | XCELERA ---
[id number]
[2024-08-09] MEDS: HYDROmorphone INJ 0.5 MG/0.5 ML SYR IV PRN (15:39)
[2024-08-09] MEDS: NYSTATIN SUSP 500,000 U/5 ML UDC PO SCH (16:46)
[2024-08-09] MEDS: lisinopril 10 MG TAB PO STA (17:12)
[2024-08-09] MEDS: METOPROLOL TARTRATE 1 MG/ML VIAL IV STA (17:43)
[2024-08-09] MEDS: FIRST - Mouthwash BLM 5 ML UDP PO SCH (17:49)
[2024-08-09] MEDS: predniSONE 20 MG TAB PO STA (18:05)
[2024-08-09 18:21] LABS: Basophils # (auto) 0.01 K/uL (0.00-0.20); Basophils % (auto) 0.1 %; Hemoglobin 12.3 g/dl (14.0-18.0); Immature Granulocytes # (auto) 0.34 K/uL (0.01-0.20); Immature Granulocytes % (auto) 2.3 %; Lymphocytes # (auto) 1.11 K/uL (1.20-3.40); Lymphocytes % (auto) 7.5 %; Mean Corpuscular Hemoglobin 27.5 pg (25.0-34.0); Mean Corpuscular Hgb Conc 33.2 g/dL (32.0-36.0); Mean Corpuscular Volume 82.8 fL (80.0-100.0); Mean Platelet Volume 9.3 fL (9.4-12.4); Monocytes # (auto) 0.68 K/uL (0.11-0.59); Monocytes % (auto) 4.6 %; Neutrophils # (auto) 12.69 K/uL (1.40-6.50); Neutrophils % (auto) 85.5 %; Platelet Count 268 K/uL (130-400); RDW Coefficient of Variation 14.8 % (11.5-14.5); RDW Standard Deviation 44.2 fL (36.4-46.3); Red Blood Count 4.47 M/uL (4.70-6.10); White Blood Count 14.83 K/ul (4.8-10.8)
[2024-08-09 18:35] LABS: Albumin Globulin Ratio 0.9 (0.9-2); BUN Creatinine Ratio 23.2 (10-20); Bilirubin,Total 0.5 mg/dl (0.2-1.0); Calcium 8.4 mg/dl (8.6-10.3); Creatinine Clr Calc Pharmacy 58.4 ml/min; Globulin 3.5 gm/dl (2.5-4.0); Magnesium 1.8 mg/dl (1.7-2.4); Total Protein 6.5 gm/dl (6.0-8.3)
[2024-08-09] MEDS ORDERED: METOPROLOL TARTRATE 1 MG/ML VIAL IV PRN (18:58)
[2024-08-09] MEDS: DICLOFENAC SOD 1% GEL 100 GM TUBE EXT SCH (20:57)
--- NOTE | 2024-08-09 21:59 | Electrocardiogram Report ---
Test Reason : Blood Pressure : */* mmHG Vent. Rate : 100 BPM Atrial Rate : 100 BPM P-R Int : 136 ms QRS Dur : 90 ms QT Int : 332 ms P-R-T Axes : * 65 132 degrees QTcB Int : 428 ms Normal sinus rhythm Indeterminate axis Cannot rule out Inferior infarct , age undetermined T wave abnormality, consider lateral ischemia Abnormal ECG When compared with ECG of 23-Jul-2024 05:49, Sinus rhythm has replaced Atrial fibrillation Confirmed by Humberto Chapin ([id number] on 08/09/2024 9:58:55 PM Referred By: Confirmed By: Humberto Chapin
--- NOTE | 2024-08-10 06:45 | Hospitalist Progress Note ---
Date of Service August 10, 2024 Assessment & Plan (1) Diverticulitis: (2) Giant cell arteritis: (3) Acute kidney injury: (4) Rhabdomyolysis: Plan 1) Rhabdomyolysis: (2) Abnormal LFTs: (3) Sepsis: (4) Diverticulitis: (5) Giant cell arteritis: Recent PMHx He had been discharged on prednisone 50 mg daily for a and initial total of 14 days, with plans to adjust dosing as needed. He had been doing somewhat better until the past few days, when he developed decreased oral intake, some abdominal discomfort, and has been laying in bed for most of the past few days. 1) Sepsis due to acute diverticulitis at splenic flexure Zosyn 4.5 g IV every 8 hours begun in the ED stopped Unasyn, 3 g, IV, q6hrs started on 08/09/2024 Pantoprazole 40 mg IV daily; Zofran 4 mg IV every 6 hours NSS + KCl 20 mEq at 80 mL/h x 2 L Dilaudid 0.25 mg IV, q3hrs, PRN, moderate pain; Dilaudid 0.5 mg IV, q3hrs, PRN,severe pain Blood cultures pending, Ur Cx preliminary no growth CT-AP: Mild acute diverticulitis at splenic flexure, w/out complication. 2mm linear, non-obstructing kidney stone 2) Delirium/ mild-moderate dementia - could consider infectious vs. metabolic vs. 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 Had been on prednisone 50 mg daily, started during admission from 07/23-07/31/2024 Hydrocortisone 50 mg IV every 8 hours, for adrenal insufficiency dosing, stopped Placed patient back on prednisone, 50 mg, daily during hospital stay 5) Diabetes mellitus Holding Januvia Glucose 209 on admission Placed on Accu-Cheks with NovoLog SSI 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 to this point 7) Aphthous stomatitis Mucous membranes primarily dry at this point with no obvious ulcerations If recurs, would recommend dental paste with triamcinolone in Orabase 8) Mastoiditis/chronic sinusitis Patient had been on Unasyn x 5 days, and then was to complete a course of Augmentin on 08/03 9) Atrial flutter - pt's metoprolol tartrate, 2.5 mg, IV given once - pt started on metoprolol succinate, 25 mg, PO, daily - will consider starting patient on an anti-coagulant upon discharge 10) HTN - pt's lisinopril re-started - amlodipine continues to be held, d/t patient being started on metoprolol succinate Admission and Anticipated Discharge Date Admission Date: August 08, 2024 Supervising Physician Co-Signing Physician Notes I personally examined the patient and verified all aguilar points of history and exam, discussed case, and agree with decision making with Dr Chanel No meaningful HPI review of systems. Family present at the bedside. Updated them to the best my ability and to their satisfaction. Has not been taking p.o. very well. Vitals noted, in general he is awake and alert but quite confused no distress. HEENT normocephalic atraumatic mucous membranes moist although tongue raw. Breathing unlabored no accessory muscle use good effort. Skin without rashes pallor or icterus. Neuro without focal deficits. Delirium Possibly multifactorialalthough given that he got thrush after having been on high-dose steroids for giant cell arteritis and then stopped taking p.o. because of the thrush, dehydration certainly seems to be a major factor. Encouraging p.o. intakeshe was really not eating well but whenever I got him a chocolate ice cream he was eating it voraciously as his fed it to him. Continue to treat thrush, continue IV fluids until he is able to drink well enough to sustain. Is not entirely clear that there is an infectious factor as part of his delirium with diverticulitis, but at the same time it is hard to rule out given his CT findings as well as intermittent lower abdominal tendernesscontinue antibiotics. PT/OT eval and treat. Anticipate return to SNF once he is sustaining with p.o. intake. Atrial flutterrate controlled. Would benefit long-term from anticoagulation. Otherwise as above. Subjective The patient is an 83 yo M w/ PMHx including hypertension, T2DM (w/ peripheral neuropathy), GERD, diabetes mellitus, mild cognitive impairment, memory loss, hypertension, BPH with LUTS, JANET, cerebrovascular disease, vascular parkinsonism and hyponatremia. He was most recently admitted to [facility] from 07/23- 07/31/2024, where he diagnosed with giant cell arteritis. Patient seen today and evaluated as best possible, but very hard of hearing and with at least a mild-moderate cognitive impairment that seemed to prevent him from responding and communicating effectively. Intermittently able to follow one-step commands and respond to attempted assessments of pain being experienced. Did seem to endorse some pain of the abdomen, ear/mastoid area, frontal head, and tongue through some non-verbal communication. Review of Systems Review of Systems: Unobtainable due to cognitive status Physical Exam Constitutional: well developed, well nourished and + altered mental status ENMT: Ears: + hearing impairment Respiratory: normal respiratory effort, lungs clear to auscultation Cardiovascular: RRR, no murmur, no edema Gastrointestinal (Abdomen): Percussion/Palpation: + abdomen tender and abdomen soft Neurologic: awake and + confused Psychiatric: Orientation: alert; + not oriented to person, + not oriented to place and + not oriented to time Results & Data Results & Data Vital Signs (Past 12 Hours) Vital Signs Temp Pulse Pulse Resp BP Pulse Ox O2 Del Method 08/10/24 02:51 36.7 C 99 H 18 147/74 H 95 Room Air 08/10/24 00:00 106 H 08/09/24 22:15 37.7 C H 104 H 18 170/81 H 93 Room Air 08/09/24 19:15 37.8 C H 95 H 18 169/85 H 94 Room Air
[2024-08-10 07:04] LABS: Basophils # (auto) 0.01 K/uL (0.00-0.20); Basophils % (auto) 0.1 %; Hematocrit (blood only) 37.6 % (42.0-52.0); Hemoglobin 12.4 g/dl (14.0-18.0); Immature Granulocytes # (auto) 0.09 K/uL (0.01-0.20); Immature Granulocytes % (auto) 0.7 %; Lymphocytes # (auto) 0.96 K/uL (1.20-3.40); Lymphocytes % (auto) 6.9 %; Mean Corpuscular Hemoglobin 27.3 pg (25.0-34.0); Mean Corpuscular Volume 82.6 fL (80.0-100.0); Mean Platelet Volume 9.3 fL (9.4-12.4); Monocytes # (auto) 0.63 K/uL (0.11-0.59); Monocytes % (auto) 4.6 %; Neutrophils # (auto) 12.14 K/uL (1.40-6.50); Neutrophils % (auto) 87.7 %; Platelet Count 258 K/uL (130-400); RDW Coefficient of Variation 14.6 % (11.5-14.5); RDW Standard Deviation 43.6 fL (36.4-46.3); Red Blood Count 4.55 M/uL (4.70-6.10); White Blood Count 13.83 K/ul (4.8-10.8)
[2024-08-10 07:28] LABS: Albumin Globulin Ratio 0.8 (0.9-2); Albumin Level 2.8 gm/dl (3.4-5.0); Bilirubin,Total 0.6 mg/dl (0.2-1.0); Calcium 8.2 mg/dl (8.6-10.3); Creatinine Clr Calc Pharmacy 57.8 ml/min; Globulin 3.5 gm/dl (2.5-4.0); Magnesium 1.7 mg/dl (1.7-2.4); Potassium 4.2 mmol/L (3.5-5.1); Total Protein 6.3 gm/dl (6.0-8.3)
[2024-08-10] MEDS: METOPROLOL SUCC 25MG EXT REL TAB PO SCH (08:36)
[2024-08-10] MEDS: INSULIN ASPART PER UNIT CHARGE SC SCH (08:36)
[2024-08-10] MEDS: POLYETHYLENE (MIRALAX) 17 GM PACK PO SCH (08:37)
[2024-08-10] MEDS: predniSONE 50 MG TAB PO SCH (08:38)
[2024-08-10] MEDS: lisinopril 10 MG TAB PO SCH (08:38)
[2024-08-10] MEDS ORDERED: amLODIPine BESYLATE 5 MG TAB PO SCH (09:00)
--- NOTE | 2024-08-10 12:44 | Electrocardiogram Report ---
Test Reason : Blood Pressure : */* mmHG Vent. Rate : 118 BPM Atrial Rate : * BPM P-R Int : * ms QRS Dur : 94 ms QT Int : 312 ms P-R-T Axes : * 39 55 degrees QTcB Int : 437 ms Atrial fibrillation with rapid ventricular response Abnormal ECG When compared with ECG of 08-Aug-2024 17:15, Atrial fibrillation has replaced Sinus rhythm Confirmed by Biju Rubio [id number] on 08/10/2024 12:43:52 PM Referred By: REFERRED SELF Confirmed By: Biju Rubio
[2024-08-10] MEDS: SODIUM CHLORIDE 0.9% 1,000 ML IV SCH (14:44)
--- NOTE | 2024-08-10 17:04 | Billing Data ---
Date of Service August 10, 2024 Coding Level of Care Code 02881 SUB INP/OBS CARE MIN
--- NOTE | 2024-08-11 08:35 | Hospitalist Progress Note ---
Date of Service August 11, 2024 Assessment & Plan (1) Diverticulitis: (2) Giant cell arteritis: (3) Acute kidney injury: (4) Rhabdomyolysis: Plan 1) Rhabdomyolysis: (2) Abnormal LFTs: (3) Sepsis: (4) Diverticulitis: (5) Giant cell arteritis: Recent PMHx He had been discharged on prednisone 50 mg daily for a and initial total of 14 days, with plans to adjust dosing as needed. He had been doing somewhat better until the past few days, when he developed decreased oral intake, some abdominal discomfort, and has been laying in bed for most of the past few days. 1) Sepsis due to acute diverticulitis at splenic flexure Zosyn, begun in the ED, stopped Unasyn, 3 g, IV, q6hrs started on 08/09/2024 Pantoprazole 40 mg IV daily; Zofran 4 mg IV every 6 hours NSS + KCl 20 mEq at 80 mL/h x 2 L Dilaudid 0.25 mg IV, q3hrs, PRN, moderate pain; Dilaudid 0.5 mg IV, q3hrs, PRN,severe pain Blood cultures negative for growth after 48 hrs, Ur Cx no growth CT-AP: Mild acute diverticulitis at splenic flexure, w/out complication. 2mm linear, non-obstructing kidney stone Worsening on 08/11/24 --> T, 38.6 C; O2Sat, 84 Patient placed on 3L O2 NC, O2Sat improved 2) Delirium/ mild-moderate dementia - could consider infectious vs. metabolic vs. 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 Had been on prednisone 50 mg daily, started during admission from 07/23-07/31/2024 Hydrocortisone 50 mg IV every 8 hours, for adrenal insufficiency dosing, stopped Placed patient back on prednisone, 50 mg, daily during hospital stay 5) Diabetes mellitus Holding Januvia Glucose 209 on admission Placed on Accu-Cheks with NovoLog SSI 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 to this point 7) Aphthous stomatitis Mucous membranes primarily dry at this point with no obvious ulcerations If recurs, would recommend dental paste with triamcinolone in Orabase 8) Mastoiditis/chronic sinusitis Patient had been on Unasyn x 5 days, and then was to complete a course of Augmentin on 08/03 9) Atrial flutter - pt's metoprolol tartrate, 2.5 mg, IV given once - pt started on metoprolol succinate, 25 mg, PO, daily - will consider starting patient on an anti-coagulant upon discharge 10) HTN - pt's lisinopril re-started - amlodipine continues to be held, d/t patient being started on metoprolol succinate Admission and Anticipated Discharge Date Admission Date: August 08, 2024 Supervising Physician Co-Signing Physician Notes I personally examined the patient and verified all aguilar points of history and exam, discussed case, and agree with decision making with Dr Chanel No meaningful HPI review of systems. Seen multiple times todaycalled due to sudden onset of fever and new oxygen requirement. Family present at the bedside. Updated them to the best my ability and to their satisfaction. Vitals noted, the first time I see him he is minimally responsive on mask oxygen but otherwise looks surprisingly in no distress. Lungs quiet but clear no rales rhonchi or wheezes. Abdomen still nondescript tenderness without guarding rebound or rigidity. Delirium Possibly multifactorialalthough given that he got thrush after having been on high-dose steroids for giant cell arteritis and then stopped taking p.o. because of the thrush, dehydration certainly seems to be a major factor. Today setback appears to have been an aspiration event more likely than healthcare associated pneumoniagiven how quickly he is getting better I would favor aspiration, but given that he has been in the hospital, in a detention, is frail, and has to be on high-dose steroidsfor now cover as though its healthcare associated pneumonia while waiting on cultures, clinical progress, etc. Escalated antibiotics to Vanco and Zosyn for the time being. Continue PT/OT. Continue supportive care. As far as the risk of aspirationwe will ask speech for inputbut for now generally using aspiration precautionsgiven that poor p.o. intake is going to be a major tal towards him truly getting better, in discussion with his we both agreed that aspiration precautions but probably not a modified diet makes the most sense given that he would likely not take a modified diet well. Atrial flutterrate controlled. Would benefit long-term from anticoagulation. Otherwise as above. Subjective The patient is an 83 yo M w/ PMHx including hypertension, T2DM (w/ peripheral neuropathy), GERD, diabetes mellitus, mild cognitive impairment, memory loss, hypertension, BPH with LUTS, JANET, cerebrovascular disease, vascular parkinsonism and hyponatremia. He was most recently admitted to [facility] from 07/23- 07/31/2024, where he diagnosed with giant cell arteritis. Patient seen today and evaluated as best possible, still very hard of hearing with at least a mild-moderate cognitive impairment that prevents him from responding and communicating effectively. Intermittently able to follow one-step commands and respond to attempted assessments of pain being experienced. Continues to endorse some pain of the abdomen, ear/mastoid area, frontal head, through non-verbal communication. Will speak spontaneously but unclear what he's trying to communicate. Review of Systems Ear, Nose, Mouth, Throat: + ear pain (pain w/ palpation of ear and mastoid area) Gastrointestinal: + abdominal pain (seems to be present in umbilical area) Physical Exam Constitutional: well developed, well nourished and + altered mental status ENMT: Ears: + hearing impairment and + mastoid abnormality (patient appeared tender to palpation of mastoid area) Respiratory: normal respiratory effort, lungs clear to auscultation Cardiovascular: RRR, no murmur, no edema Gastrointestinal (Abdomen): Percussion/Palpation: + abdomen tender and abdomen soft Neurologic: awake and + confused Psychiatric: Orientation: alert; + not oriented to person, + not oriented to place and + not oriented to time Results & Data Results & Data Vital Signs (Past 12 Hours) Vital Signs Temp Pulse Pulse Resp BP Pulse Ox O2 Del Method 08/11/24 08:03 109 H 18 179/92 H 92 Room Air 08/11/24 02:45 37.2 C 71 18 119/70 93 Room Air 08/11/24 00:00 79 08/10/24 22:39 36.3 C L 63 18 96/59 L 96 Room Air
[2024-08-11 08:45] LABS: Basophils # (auto) 0.01 K/uL (0.00-0.20); Basophils % (auto) 0.1 %; Eosinophils # (auto) 0.01 K/uL (0.00-0.50); Eosinophils % (auto) 0.1 %; Hematocrit (blood only) 36.8 % (42.0-52.0); Hemoglobin 12.2 g/dl (14.0-18.0); Immature Granulocytes # (auto) 0.11 K/uL (0.01-0.20); Immature Granulocytes % (auto) 0.8 %; Lymphocytes # (auto) 1.04 K/uL (1.20-3.40); Lymphocytes % (auto) 7.5 %; Mean Corpuscular Hemoglobin 27.2 pg (25.0-34.0); Mean Corpuscular Hgb Conc 33.2 g/dL (32.0-36.0); Mean Corpuscular Volume 82.1 fL (80.0-100.0); Mean Platelet Volume 9.5 fL (9.4-12.4); Monocytes # (auto) 0.46 K/uL (0.11-0.59); Monocytes % (auto) 3.3 %; Neutrophils # (auto) 12.18 K/uL (1.40-6.50); Neutrophils % (auto) 88.2 %; Platelet Count 255 K/uL (130-400); RDW Coefficient of Variation 14.6 % (11.5-14.5); RDW Standard Deviation 43.4 fL (36.4-46.3); Red Blood Count 4.48 M/uL (4.70-6.10); White Blood Count 13.81 K/ul (4.8-10.8)
[2024-08-11] MEDS: KETOCONAZOLE 2% CR 15 GM TUBE EXT PRN (09:00)
[2024-08-11] MEDS: PANTOprazole 40 MG TAB PO SCH (09:00)
[2024-08-11 09:13] LABS: Albumin Globulin Ratio 0.9 (0.9-2); Albumin Level 2.9 gm/dl (3.4-5.0); BUN Creatinine Ratio 31.7 (10-20); Bilirubin,Total 0.5 mg/dl (0.2-1.0); Calcium 8.1 mg/dl (8.6-10.3); Creatinine Clr Calc Pharmacy 55.6 ml/min; Globulin 3.4 gm/dl (2.5-4.0); Magnesium 1.7 mg/dl (1.7-2.4); Potassium 3.9 mmol/L (3.5-5.1); Total Protein 6.3 gm/dl (6.0-8.3)
[2024-08-11] MEDS ORDERED: VANCOMYCIN CONSULT ACTIVE PRN (15:13)
--- NOTE | 2024-08-11 15:35 | Pharmacy Report ---
Pharmacy PK ABX Note - Date of Service August 11, 2024 - Assessment and Plan Assessment 83 year old M receiving Vancomycin and Unasyn for treatment of empiric sepsis and GI infxn. * Day # 3 of Unasyn for GI infection and Day #1 of Vancomycin for empiric sepsis treatment - possible pneumonia. * Febrile to 38.6oC today and hypoxic. Started on Vanc for this. Leukocytosis of 13.8k. SCr 1.04 mg/dL. MRSA swab negative. Blood cultures with no growth to date. Plan Vancomycin * Loading dose: 1750 mg IV x 1 * Maintenance dose: 1500 mg IV every 24 hours * Regimen is predicted to achieve target AUC/DACIA of 400-600 mg/L.hr * Level will be ordered should therapy extend beyond 48 hours. Unasyn * 3000 mg IV every 6 hours Pharmacy will continue to follow and will adjust dose/frequency as necessary. Thank you. Pharmacy has transitioned to AUC monitoring for vancomycin. AUC/DACIA is the preferred PK/PD target and is associated with decreased risk of nephrotoxicity compared to traditional trough targets.
[2024-08-11 15:54] LABS: Hematocrit (blood only) 34.7 % (42.0-52.0); Hemoglobin 11.4 g/dl (14.0-18.0); Mean Corpuscular Hemoglobin 27.1 pg (25.0-34.0); Mean Corpuscular Hgb Conc 32.9 g/dL (32.0-36.0); Mean Corpuscular Volume 82.4 fL (80.0-100.0); Mean Platelet Volume 9.4 fL (9.4-12.4); Platelet Count 225 K/uL (130-400); RDW Coefficient of Variation 14.6 % (11.5-14.5); RDW Standard Deviation 43.2 fL (36.4-46.3); Red Blood Count 4.21 M/uL (4.70-6.10); White Blood Count 13.25 K/ul (4.8-10.8)
[2024-08-11] MEDS: VANCOMYCIN HCL 1,750 MG in SODIUM CHLORIDE 0.9% 500 ML IV STA (16:04)
[2024-08-11 16:14] LABS: BUN Creatinine Ratio 27.9 (10-20); C Reactive Protein 3.63 mg/dl (0-0.5); Calcium 7.9 mg/dl (8.6-10.3); Creatinine Clr Calc Pharmacy 52.1 ml/min; Potassium 4.3 mmol/L (3.5-5.1)
[2024-08-11 16:31] LABS: Basophils # (auto) 0.01 K/uL (0.00-0.20); Basophils % (auto) 0.1 %; Immature Granulocytes % (auto) 0.8 %; Lymphocytes # (auto) 0.26 K/uL (1.20-3.40); Monocytes # (auto) 0.13 K/uL (0.11-0.59); Neutrophils # (auto) 12.75 K/uL (1.40-6.50); Neutrophils % (auto) 96.1 %
--- NOTE | 2024-08-11 17:05 | XRay Report ---
EXAM: Radiographs of the Chest 2 Views INDICATION: Fever. Hypoxia. TECHNIQUE: Frontal and lateral views of the chest. COMPARISON: 08/08/2024 FINDINGS: Lungs and pleural spaces: There is slight increase patchy infiltrate in the left base and new mild patchy bronchial thickening and infiltrate in the right base. New trace left pleural effusion. No pneumothorax. Heart: Normal shape and configuration. Mediastinum: Normal contour. Bones/joints: Degenerative changes noted throughout the spine and both shoulders. No lytic or blastic lesions noted. IMPRESSION: Increased left and new patchy right basilar pneumonia and small left pleural effusion. ACT 112: Negative or not required by law. Electronically signed by Ida Steiner 08-11-2024 5:05 PM
--- NOTE | 2024-08-11 17:41 | Billing Data ---
Date of Service August 11, 2024 Coding Level of Care Code 77630 SUB INP/OBS CARE 3MIN
--- NOTE | 2024-08-11 17:41 | Billing Data ---
Date of Service August 11, 2024 Coding Level of Care Code 72347 SUB INP/OBS CARE 3MIN
[2024-08-11] MEDS: SODIUM CHLORIDE 0.9% 1,000 ML IV SCH (18:22)
[2024-08-11] MEDS: PIPERACILLIN/TAZOBACTAM 4.5 GM/100 ML BAG IV ONE (20:11)
[2024-08-11] MEDS: PIPERACILLIN/TAZOBACTAM 4.5 GM/100 ML BAG IV SCH (23:22)
[2024-08-12 06:56] LABS: Basophils # (auto) 0.01 K/uL (0.00-0.20); Basophils % (auto) 0.1 %; Hematocrit (blood only) 31.6 % (42.0-52.0); Hemoglobin 10.6 g/dl (14.0-18.0); Immature Granulocytes # (auto) 0.07 K/uL (0.01-0.20); Immature Granulocytes % (auto) 0.6 %; Lymphocytes # (auto) 0.92 K/uL (1.20-3.40); Lymphocytes % (auto) 7.7 %; Mean Corpuscular Hemoglobin 27.5 pg (25.0-34.0); Mean Corpuscular Hgb Conc 33.5 g/dL (32.0-36.0); Mean Corpuscular Volume 82.1 fL (80.0-100.0); Mean Platelet Volume 9.5 fL (9.4-12.4); Monocytes # (auto) 0.54 K/uL (0.11-0.59); Monocytes % (auto) 4.5 %; Neutrophils # (auto) 10.36 K/uL (1.40-6.50); Neutrophils % (auto) 87.1 %; Platelet Count 189 K/uL (130-400); RDW Coefficient of Variation 14.6 % (11.5-14.5); RDW Standard Deviation 43.3 fL (36.4-46.3); Red Blood Count 3.85 M/uL (4.70-6.10)
[2024-08-12 07:18] LABS: Calcium 7.6 mg/dl (8.6-10.3); Potassium 3.8 mmol/L (3.5-5.1)
[2024-08-12 07:23] LABS: Creatinine Clr Calc Pharmacy 54.5 ml/min
--- NOTE | 2024-08-12 07:30 | Hospitalist Progress Note ---
Date of Service August 12, 2024 Assessment & Plan (1) Diverticulitis: (2) Giant cell arteritis: (3) Acute kidney injury: (4) Rhabdomyolysis: Plan Patient was admitted and treated for Giant Cell Arteritis - plan was slow taper of prednisone outpatient. Patient then acutely worsened prompting ED visit and subsequent admission for metabolic encephalopathy, deconditioning, and sepsis likely GI source. #Sepsis likely GI source Patient did initially meet sepsis criteria with leukocytosis, tachycardia, and fever. Treated empirically with IVF and antibiotics. CT with signs of diverticulitis at the splenic flexure. BCx NGTD x 48H. UCx NGTD. Pain control with Dilaudid 0.25, 0.5 mg IV. We were treating with Unasyn 08/09-08/11. Acute change in respiratory status and new fever with concern for aspiration pneumonitis prompted switching to Vanc/Zosyn. Repeat BCx drawn. follow cultures continue abx - deescalate to Zosyn 08/12, plan to d/c on Augmentin #Aspiration Pneumonitis/Pneumonia Treating with Vanc/Zosyn. MRSA nares negative on admission and patient well appearing - thus less likely to need MRSA coverage. Will narrow to Zosyn with plans to d/c with Augmentin. Aspiration precautions and speech consult. Dr. Miller did speak with family and he likely will not do well with a modified diet. Consider permissive aspiration as worsening PO will negatively impact overall prognosis. aspiration precautions speech consult - appreciate recs #Delirium on dementia Most likely delirium on baseline dementia 2/2 dehydration +/- infection. Generally clears with time. Continue delirium precautions - blinds up and lights on during the day, melatonin around 8 pm, minimize tubes/sleep disruption, minimize overnight vitals #Giant cell arteritis Diagnosed during recent hospital stay. Continue with steroid therapy with slow taper. Changed to methylpred while NPO. Will continue pred 50 mg once tolerating PO. #DM SSI while inpatient. Resume home meds on d/c #A flutter Rate controlled on metoprolol. Continue metoprolol. Adding Eliquis for anticoagulation. #HTN On lisinopril and amlodipine at home. Holding amlodipine as recently started metoprolol 25 mg succinate. If BP continues to be elevated could add back amlodipine. #BEATRIZ - likely in the setting of dehydration and mildly elevated CK. Has since resolved. #Aphthous stomatitis- resolved. If recurs rec dental paste with triamcinolone in [facility] #Mastoiditis/chronic sinusitis - completed course of abx 08/03 Code status: DNR/DNI DVT ppx: Eliquis start 08/12 FENGI: speech eval - minced and moist, video swallow 08/15 Dispo: SNF, likely return to [facility] Admission and Anticipated Discharge Date Admission Date: August 08, 2024 Supervising Physician Co-Signing Physician Notes I personally examined the patient and verified all aguilar points of history and exam, discussed case, and agree with decision making with Dr Wright More awake and alert. Between hard of hearing and delirium, no meaningful HPI or review of systems obtainable but he awakens easily to light touch and smiles and tries to interact. Vitals noted, in general he is awake seems to be disoriented, but no distress much brighter than the last day. HEENT normocephalic atraumatic mucous membranes moist lungs quiet but clear no rales rhonchi or wheezes good effort abdomen soft ongoing mild nondescript tenderness with no guarding rebound or rigidity. Nonfocal. Extremities without cyanosis clubbing or edema. Neuro without focal deficits except for hard of hearing. Labs noted. Delirium Possibly multifactorialalthough given that he got thrush after having been on high-dose steroids for giant cell arteritis and then stopped taking p.o. because of the thrush, dehydration certainly seems to be a major factor. Set back on 08/11 appears to have been an aspiration eventhe is recovering nicely. Initially had broadened antibiotics to cover for the potential for hospital-acquired pneumoniabut fortunately with this not appearing to be the case, and with that all likely relating to an aspiration event, dropping vancomycin. Speech therapy eval and treat, although in discussion with family, given that he is predominantly struggling to get enough to eat and drink right now is a major thing holding him back, we probably would not want to have much of a significant modification in the texture of his food or liquids but rather predominantly just safe swallowing strategies. Atrial flutterrate controlled/converted to NSR. Would benefit long-term from anticoagulation. Otherwise as above. Subjective Seen at bedside this AM. Nursing concerned that patient aspirating. Does not feel comfortable feeding him. Patient says hello. No meaningful history obtained. Review of Systems 2 Review of Systems: Unable to assess Physical Exam 2 Physical Exam: Gen: chronically ill appearing, elderly patient in NAD HEENT: AT NC MMM Resp: exam limited by cooperativity of patient, no wheezing auscultated anteriorly, no increased work of breathing CV: RRR no m/r/g clinically well perfused Abd: soft, non-distended, TTP LLQ, no peritoneal signs MSK: no obvious deformities Skin: no rashes or bruising Neuro: alert and oriented Psych: appropriate mood and affect Results & Data Results & Data Vital Signs (Past 12 Hours) Vital Signs Temp Pulse Resp BP Pulse Ox Pulse Ox O2 Del Method 08/12/24 02:32 38.6 C H 92 H 24 147/89 H 97 Oxymask 08/11/24 23:00 98 08/11/24 22:37 37.7 C H 88 23 148/81 H 99 Oxymask 08/11/24 20:00 Oxymask 08/11/24 20:00 38.8 C H 90 18 149/80 H Oxymask O2 Del Method O2 Flow Rate O2 Flow Rate 08/12/24 02:32 2 08/11/24 23:00 Oxymask 2 08/11/24 22:37 2 08/11/24 20:00 2 08/11/24 20:00 2 Laboratory Results 08/12/24 06:29 08/12/24 06:29 Diagnostic Findings Chest X-Ray 08/11/24 15:13 FINDINGS: Lungs and pleural spaces: There is slight increase patchy infiltrate in the left base and new mild patchy bronchial thickening and infiltrate in the right base. New trace left pleural effusion. No pneumothorax. Heart: Normal shape and configuration. Mediastinum: Normal contour. Bones/joints: Degenerative changes noted throughout the spine and both shoulders. No lytic or blastic lesions noted. IMPRESSION: Increased left and new patchy right basilar pneumonia and small left pleural effusion. Resident Activity Tracking Resident Involvement: Resident Care Provided Care Provided: Adult Hospital Medicine
[2024-08-12] MEDS: VANCOMYCIN HCL 1,500 MG in SODIUM CHLORIDE 0.9% 500 ML IV SCH (08:28)
[2024-08-12] MEDS ORDERED: methylPREDNISolone 125 MG/2 ML VIAL IV SCH (09:00)
[2024-08-12] MEDS: methylPREDNISolone 40 MG in SYRINGE 0 ML IV SCH (10:22)
--- NOTE | 2024-08-12 11:08 | XRay Report ---
XR hip RT 2V w pelvis CLINICAL HISTORY: Right hip pain. COMPARISON: CT of the abdomen and pelvis August 08, 2024. FINDINGS: Sacroiliac joints and symphysis pubis are intact. There are no fractures within the pelvis or hips. There are no osseous lesions. There is mild to moderate joint space narrowing and osteophyt osis of both hips. There is no evidence for avascular necrosis of the femoral heads. Lumbar spine lev oscoliosis is partially imaged on this examination. IMPRESSION: 1. No fractures within the pelvis or hips. 2. Mild to moderate bilateral hip osteoarthritis. ACT 112: Negative or not required by law. Electronically signed by: Prince Paul M.D. 08/12/2024 11:06 AM
[2024-08-12] MEDS: PANTOprazole 40 MG/10 ML SYR IV SCH (11:38)
--- NOTE | 2024-08-12 12:51 | Billing Data ---
Date of Service August 12, 2024 Coding Level of Care Code 58809 SUB INP/OBS CARE 3MIN
--- NOTE | 2024-08-12 12:51 | Billing Data ---
Date of Service August 12, 2024 Coding Level of Care Code 89196 SUB INP/OBS CARE 3MIN
[2024-08-12] MEDS: APIXABAN 5 MG TABLET PO SCH (21:09)
--- NOTE | 2024-08-13 06:55 | Hospitalist Progress Note ---
Date of Service August 13, 2024 Assessment & Plan (1) Diverticulitis: (2) Giant cell arteritis: (3) Acute kidney injury: (4) Rhabdomyolysis: Plan Patient was admitted and treated for Giant Cell Arteritis - plan was slow taper of prednisone outpatient. Patient then acutely worsened prompting ED visit and subsequent admission for metabolic encephalopathy, deconditioning, and sepsis likely GI source. #Sepsis likely GI source Patient did initially meet sepsis criteria with leukocytosis, tachycardia, and fever. Treated empirically with IVF and antibiotics. CT with signs of diverticulitis at the splenic flexure. BCx NGTD x 48H. UCx NGTD. Pain control with Dilaudid 0.25, 0.5 mg IV. We were treating with Unasyn 08/09-08/11. Acute change in respiratory status and new fever with concern for aspiration pneumonitis prompted switching to Vanc/Zosyn. Repeat BCx drawn. follow cultures continue abx - deescalate to Zosyn 08/12, plan to d/c on Augmentin #Aspiration Pneumonitis/Pneumonia Zosyn (MRSA nares negative) with plans to d/c with Augmentin. Aspiration precautions and speech consult. After discussion with family, with nutritional challenges modified diet could be detrimental to nutritional status. Consider permissive aspiration as worsening PO will negatively impact overall prognosis. aspiration precautions speech consult - appreciate recs #Delirium on dementia Most likely delirium on baseline dementia 2/2 dehydration +/- infection. Generally clears with time. Continue delirium precautions - blinds up and lights on during the day, melatonin around 8 pm, minimize tubes/sleep disruption, minimize overnight vitals #Giant cell arteritis Diagnosed during recent hospital stay. Continue with steroid therapy with slow taper. continue pred 50 mg daily #DM SSI while inpatient. Resume home meds on d/c #A flutter Rate controlled on metoprolol. Continue metoprolol. Adding Eliquis for anticoagulation. #HTN On lisinopril and amlodipine at home. Holding amlodipine as recently started metoprolol 25 mg succinate. If BP continues to be elevated could add back amlodipine. #BEATRIZ - likely in the setting of dehydration and mildly elevated CK. Has since resolved. #Aphthous stomatitis- resolved. If recurs rec dental paste with triamcinolone in [facility] #Mastoiditis/chronic sinusitis - completed course of abx 08/03 Code status: DNR/DNI DVT ppx: Eliquis start 08/12 FENGI: speech eval - minced and moist, video swallow 08/15 Dispo: SNF, likely return to [facility] Admission and Anticipated Discharge Date Admission Date: August 08, 2024 Supervising Physician Co-Signing Physician Notes I personally examined the patient and verified all aguilar points of history and exam, discussed case, and agree with decision making with Dr Almaraz continues to be awake and alert, however, still no meaningful HPI or ROS obtainable. vitals noted nad heent nc at mmm breathing unlabored no accessory muscles good effort skin without rashes pallor or icterus. updated at bedside extensively. Delirium Possibly multifactorialalthough given that he got thrush after having been on high-dose steroids for giant cell arteritis and then stopped taking p.o. because of the thrush, dehydration certainly seems to be a major factor. Set back on 08/11 appears to have been an aspiration eventhe is recovering nicely. Initially had broadened antibiotics to cover for the potential for hospital-acquired pneumoniabut fortunately with this not appearing to be the case, and with that all likely relating to an aspiration event, now off vanco just on zosyn - probably can dc all abx soon given low suspicion of bacterial infection. Speech therapy eval and treat, although in discussion with family, given that he is predominantly struggling to get enough to eat and drink right now is a major thing holding him back, we probably would not want to have much of a significant modification in the texture of his food or liquids but rather predominantly just safe swallowing strategies (currently on minced and moist which is generally well tolerated by most). Atrial flutterrate controlled/converted to NSR. Would benefit long-term from anticoagulation (on eliquis). Otherwise as above. stable to go to med/surg - likely will be well enough to return to SNF by ?early next week Subjective Seen at bedside this AM. Alert but not orientated. Hard of hearing with ongoing delirium. Able to answer some simple questions. Review of Systems Review of Systems: As per above Physical Exam Physical Exam: Constitutional: well-appearing, no acute distress HEENT: NCAT, no conjunctival injection CV: regular rhythm, no murmur appreciated, extremities well-perfused, no LE edema Resp: CTABL, no wheezes/rales/rhonchi appreciated, no increased work of breathing GI: soft, nondistended, nontender, BS normoactive MSK: no gross deformities appreciated Skin: warm, dry, no rash appreciated Neuro: alert, oriented, no focal neurologic deficit appreciated Results & Data Results & Data Vital Signs (Past 12 Hours) Vital Signs Temp Pulse Resp BP Pulse Ox Pulse Ox O2 Del Method 08/13/24 03:12 36.8 C 71 16 154/88 H 94 Room Air 08/12/24 23:30 36.7 C 69 18 127/66 94 Room Air 08/12/24 23:00 94 08/12/24 20:15 36.3 C L 58 L 20 135/74 97 Room Air 08/12/24 20:00 Room Air O2 Del Method 08/13/24 03:12 08/12/24 23:30 08/12/24 23:00 Room Air 08/12/24 20:15 08/12/24 20:00 Resident Activity Tracking Resident Involvement: Resident Care Provided Care Provided: Adult Hospital Medicine
[2024-08-13 07:11] LABS: Hematocrit (blood only) 33.8 % (42.0-52.0); Hemoglobin 11.2 g/dl (14.0-18.0); Immature Granulocytes # (auto) 0.06 K/uL (0.01-0.20); Immature Granulocytes % (auto) 0.7 %; Lymphocytes # (auto) 0.78 K/uL (1.20-3.40); Lymphocytes % (auto) 8.7 %; Mean Corpuscular Hemoglobin 26.9 pg (25.0-34.0); Mean Corpuscular Hgb Conc 33.1 g/dL (32.0-36.0); Mean Corpuscular Volume 81.3 fL (80.0-100.0); Mean Platelet Volume 9.8 fL (9.4-12.4); Monocytes % (auto) 4.5 %; Neutrophils # (auto) 7.68 K/uL (1.40-6.50); Neutrophils % (auto) 86.1 %; Platelet Count 183 K/uL (130-400); RDW Coefficient of Variation 14.6 % (11.5-14.5); RDW Standard Deviation 42.4 fL (36.4-46.3); Red Blood Count 4.16 M/uL (4.70-6.10); White Blood Count 8.92 K/ul (4.8-10.8)
[2024-08-13 07:40] LABS: Calcium 7.8 mg/dl (8.6-10.3); Potassium 3.8 mmol/L (3.5-5.1)
--- NOTE | 2024-08-13 14:35 | Billing Data ---
Date of Service August 13, 2024 Coding Level of Care Code 46015 SUB INP/OBS CARE 3MIN
[2024-08-14 06:47] LABS: Basophils # (auto) 0.01 K/uL (0.00-0.20); Basophils % (auto) 0.1 %; Eosinophils # (auto) 0.01 K/uL (0.00-0.50); Eosinophils % (auto) 0.1 %; Hematocrit (blood only) 35.8 % (42.0-52.0); Hemoglobin 11.8 g/dl (14.0-18.0); Immature Granulocytes # (auto) 0.05 K/uL (0.01-0.20); Immature Granulocytes % (auto) 0.6 %; Lymphocytes # (auto) 1.02 K/uL (1.20-3.40); Lymphocytes % (auto) 11.9 %; Mean Corpuscular Hemoglobin 26.9 pg (25.0-34.0); Mean Corpuscular Volume 81.5 fL (80.0-100.0); Mean Platelet Volume 9.9 fL (9.4-12.4); Monocytes # (auto) 0.33 K/uL (0.11-0.59); Monocytes % (auto) 3.9 %; Neutrophils # (auto) 7.14 K/uL (1.40-6.50); Neutrophils % (auto) 83.4 %; Platelet Count 221 K/uL (130-400); RDW Coefficient of Variation 14.6 % (11.5-14.5); RDW Standard Deviation 42.7 fL (36.4-46.3); Red Blood Count 4.39 M/uL (4.70-6.10); White Blood Count 8.56 K/ul (4.8-10.8)
--- NOTE | 2024-08-14 07:05 | Hospitalist Progress Note ---
Date of Service August 14, 2024 Assessment & Plan (1) Diverticulitis: (2) Giant cell arteritis: (3) Acute kidney injury: (4) Rhabdomyolysis: Plan Patient was admitted and treated for Giant Cell Arteritis - plan was slow taper of prednisone outpatient. Patient then acutely worsened prompting ED visit and subsequent admission for metabolic encephalopathy, deconditioning, and sepsis likely GI source. #Sepsis likely GI source Patient did initially meet sepsis criteria with leukocytosis, tachycardia, and fever. Treated empirically with IVF and antibiotics. CT with signs of diverticulitis at the splenic flexure. BCx NGTD x 48H. UCx NGTD. Pain control with Dilaudid 0.25, 0.5 mg IV. We were treating with Unasyn 08/09-08/11. Acute change in respiratory status and new fever with concern for aspiration pneumonitis prompted switching to Vanc/Zosyn. Repeat BCx drawn. follow cultures continue abx - deescalate to Zosyn 08/12, plan to transition to Unasyn 08/14 and plan to d/c on Augmentin; plan for a total course of 5 days (last day 08/16) #Aspiration Pneumonitis/Pneumonia Zosyn (MRSA nares negative) with plans to d/c with Augmentin. Aspiration precautions and speech consult. After discussion with family, with nutritional challenges modified diet could be detrimental to nutritional status. Consider permissive aspiration as worsening PO will negatively impact overall prognosis. aspiration precautions speech consult - appreciate recs #Hyponatremia Na= 128, likely hypovolemic int he setting of poor PO intake repeat BMP qAM; if continues to down trend may need to restart IVF #Delirium on dementia Most likely delirium on baseline dementia 2/2 dehydration +/- infection. Generally clears with time. Continue delirium precautions - blinds up and lights on during the day, melatonin around 8 pm, minimize tubes/sleep disruption, minimize overnight vitals #Giant cell arteritis Diagnosed during recent hospital stay. Continue with steroid therapy with slow taper. continue pred 50 mg daily #DM SSI while inpatient. Resume home meds on d/c #A flutter Rate controlled on metoprolol. Continue metoprolol. Adding Eliquis for anticoagulation. #HTN On lisinopril and amlodipine at home. Holding amlodipine as recently started metoprolol 25 mg succinate. If BP continues to be elevated could add back amlodipine. #BEATRIZ - likely in the setting of dehydration and mildly elevated CK. Has since resolved. #Aphthous stomatitis- resolved. If recurs rec dental paste with triamcinolone in [facility] #Mastoiditis/chronic sinusitis - completed course of abx 08/03 Code status: DNR/DNI DVT ppx: Eliquis start 08/12 FENGI: speech eval - minced and moist, video swallow 08/15 Dispo: SNF, likely return to [facility] hopefully stable for d/c in the next 1- 2 days Admission and Anticipated Discharge Date Admission Date: August 08, 2024 Supervising Physician Co-Signing Physician Notes I personally examined the patient and verified all aguilar points of history and exam, discussed case, and agree with decision making with Dr Almaraz continues to be awake and alert, however, still no meaningful HPI or ROS obtainable - does respond more appropriately to written questions though. vitals noted nad heent nc at mmm breathing unlabored no accessory muscles good effort skin without rashes pallor or icterus. updated at bedside extensively. Delirium Possibly multifactorialalthough given that he got thrush after having been on high-dose steroids for giant cell arteritis and then stopped taking p.o. because of the thrush, dehydration certainly seems to be a major factor. Set back on 08/11 appears to have been an aspiration eventhe is recovering nicely. Initially had broadened antibiotics to cover for the potential for hospital-acquired pneumoniabut fortunately with this not appearing to be the case, and with that all likely relating to an aspiration event, now back to unasyn. Speech therapy eval and treat, although in discussion with family, given that he is predominantly struggling to get enough to eat and drink right now is a major thing holding him back, we probably would not want to have much of a significant modification in the texture of his food or liquids but rather predominantly just safe swallowing strategies (currently on minced and moist which is generally well tolerated by most). Na slightly lower - today was first day wtihout IV fluid support - if BMP shows worsening Na into tomorrow then that could be reflective of poor enough PO intake to still require hospital level support. Atrial flutterrate controlled/converted to NSR. Would benefit long-term from anticoagulation (on eliquis). Otherwise as above. stable on med/surg - likely will be well enough to return to SNF by ?early next week largely dependant on PO fluid intake/BMP and how he does with speech tomorrow Subjective Pt seen at bedside this morning. Was eating breakfast. Awake and alert, able to answer come simple questions. No acute complaints. Review of Systems Review of Systems: As per above Physical Exam Physical Exam: Constitutional: well-appearing, no acute distress HEENT: NCAT, no conjunctival injection CV: regular rhythm, no murmur appreciated, extremities well-perfused, no LE edema Resp: CTABL, no wheezes/rales/rhonchi appreciated, no increased work of breathing GI: soft, nondistended, nontender, BS normoactive MSK: no gross deformities appreciated Skin: warm, dry, no rash appreciated Neuro: alert, oriented, no focal neurologic deficit appreciated Results & Data Results & Data Vital Signs (Past 12 Hours) Vital Signs Temp Pulse Resp BP Pulse Ox O2 Del Method 08/13/24 20:02 36.7 C 58 L 16 149/75 H 94 Room Air 08/13/24 19:50 Room Air Resident Activity Tracking Resident Involvement: Resident Care Provided Care Provided: Adult Hospital Medicine
[2024-08-14 07:06] LABS: Calcium 8.1 mg/dl (8.6-10.3); Creatinine Clr Calc Pharmacy 58.4 ml/min
[2024-08-14] MEDS: LANTUS PER UNIT CHARGE SQ SCH (09:17)
[2024-08-14] MEDS: ACETAMINOPHEN 500 MG TAB PO PRN (10:08)
[2024-08-14] MEDS: AMPICILLIN/SULBACTAM SOD 3,000 MG/100 ML BAG IV SCH (14:42)
--- NOTE | 2024-08-14 17:10 | Billing Data ---
Date of Service August 14, 2024 Coding Level of Care Code 52269 SUB INP/OBS CARE 3MIN
[2024-08-15 07:24] LABS: Basophils # (auto) 0.01 K/uL (0.00-0.20); Basophils % (auto) 0.1 %; Eosinophils # (auto) 0.01 K/uL (0.00-0.50); Eosinophils % (auto) 0.1 %; Hematocrit (blood only) 34.1 % (42.0-52.0); Hemoglobin 11.6 g/dl (14.0-18.0); Immature Granulocytes # (auto) 0.07 K/uL (0.01-0.20); Immature Granulocytes % (auto) 0.8 %; Lymphocytes # (auto) 0.85 K/uL (1.20-3.40); Lymphocytes % (auto) 9.5 %; Mean Corpuscular Hemoglobin 27.6 pg (25.0-34.0); Mean Platelet Volume 9.7 fL (9.4-12.4); Monocytes # (auto) 0.38 K/uL (0.11-0.59); Monocytes % (auto) 4.2 %; Neutrophils # (auto) 7.65 K/uL (1.40-6.50); Neutrophils % (auto) 85.3 %; Platelet Count 237 K/uL (130-400); RDW Coefficient of Variation 14.6 % (11.5-14.5); RDW Standard Deviation 42.9 fL (36.4-46.3); Red Blood Count 4.21 M/uL (4.70-6.10); White Blood Count 8.97 K/ul (4.8-10.8)
[2024-08-15 07:33] LABS: Calcium 7.8 mg/dl (8.6-10.3); Creatinine Clr Calc Pharmacy 63.5 ml/min; Potassium 3.8 mmol/L (3.5-5.1)
--- NOTE | 2024-08-15 11:12 | Fluoroscopy Report ---
FL video swallow CLINICAL HISTORY: assess for aspiration COMPARISON STUDY: None TECHNIQUE: Fluoroscopic observation of swallowing function was performed in conjunction was pathology . Fluoroscopy time was 2.01 minutes with 8 mGy dose. FINDINGS: There is persistent premature spilling over the base of the tongue with pooling of contrast material in the pharynx and in particular the vallecular recess. There is repeated, mild laryngeal p enetration. No aspiration was observed. IMPRESSION: Negative for aspiration ACT 112: Negative or not required by law. Electronically signed by: Telma Mayers M.D. 08/15/2024 11:11 AM
--- NOTE | 2024-08-15 13:11 | Hospitalist Progress Note ---
Date of Service August 15, 2024 Assessment & Plan (1) Diverticulitis: (2) Giant cell arteritis: (3) Acute kidney injury: (4) Rhabdomyolysis: Plan Patient was admitted and treated for Giant Cell Arteritis - plan was slow taper of prednisone outpatient. Patient then acutely worsened prompting ED visit and subsequent admission for metabolic encephalopathy, deconditioning, and sepsis likely GI source. During hospital stay had acute episode of fever (38.6 C) and respiratory distress w/ O2Sats down into the 70s. This was likely due to an aspiration event. 1) Aspiration Pneumonitis/Pneumonia - Unasyn (MRSA nares negative) with plans to d/c with Augmentin. Aspiration precautions and speech consult. - After discussion with family, with nutritional challenges modified diet could be detrimental to nutritional status. - Consider permissive aspiration as worsening PO will negatively impact overall prognosis. aspiration precautions speech consult --> noted mild to moderate dysphagia w/ slow, prolonged chewing and slowed tongue motion diet --> texture: minced and moist 2) Sepsis likely GI source - Patient did initially meet sepsis criteria with leukocytosis, tachycardia, and fever. Treated empirically with IVF and antibiotics. - CT with signs of diverticulitis at the splenic flexure. Blood Cx (08/08), no growth after 5 days; Blood Cx (08/11), no growth after 48 hrs - Pain control with Dilaudid 0.25, 0.5 mg IV. We were treating with Unasyn 08/09- 08/11. Acute change in respiratory status and new fever with concern for aspiration pneumonitis prompted switching to Vanc/Zosyn. Repeat BCx drawn. follow cultures continue abx - deescalate to Zosyn 08/12, plan to transition to Unasyn 08/14 and plan to d/c on Augmentin; plan for a total course of 5 days (last day 08/16) 3) Hyponatremia Na, 129 <-- 128, likely hypovolemic in the setting of poor PO intake repeat BMP qAM; if continues to down trend may need to restart IVF 4) Delirium superimposed on dementia Most likely delirium on baseline dementia d/t dehydration and/or infection. - Generally clears with time. Continue delirium precautions - blinds up and lights on during the day, melatonin around 8 pm, minimize tubes/sleep disruption, minimize overnight vitals 5) Giant cell arteritis Diagnosed during previous hospital stay; ESR, 40 <-- 105 <-- (>130), improving on steroids - continue pred 50 mg daily 6) DM SSI while inpatient. Resume home meds on d/c 7) Atrial flutter - Rate controlled on metoprolol. Continue metoprolol succinate, 25 mg, PO, daily - Added Eliquis, 5 mg, PO, BID 8) HTN On lisinopril and amlodipine at home. Holding amlodipine as recently started metoprolol 25 mg succinate. - Continue lisinopril, 10 mg, PO, daily; metoprolol succinate, 25 mg, PO, daily #BEATRIZ - likely in the setting of dehydration and mildly elevated CK. Has since resolved. #Aphthous stomatitis- resolved. If recurs rec dental paste with triamcinolone in [employer] #Mastoiditis/chronic sinusitis - completed course of abx 08/03 Code status: DNR/DNI DVT ppx: Eliquis started 08/12 FENGI: speech eval - minced and moist, video swallow 08/15 Dispo: SNF, likely return to [facility] hopefully stable for d/c in the next 1- 2 days Admission and Anticipated Discharge Date Admission Date: August 08, 2024 Supervising Physician Co-Signing Physician Notes I personally examined the patient and verified aguilar points of history and exam, discussed case, and agree with decision making and plan documented by Dr. Chanel. Evaluated patient with family at bedside. He was seated comfortably in the chair. Noted to be extremely hard of hearing, possibly worsened since his diagnosis of GCA. Reviewed with patient's that prednisone will be tapered slowly. Reviewed that fluoroscopic video swallow was negative for aspiration however there was some mild laryngeal penetration. Patient remains on minced and moist diet and is working with nutrition. Will transition to p.o. Augmentin to complete antibiotics. Plan is for patient to return to rehab at [facility] on discharge. Subjective Pt seen at bedside this afternoon. Able to follow simple commands and AAO x 2. Less easily distracted with attempts to hold conversation than prior days. Very hard of hearing and even with hearing aids he prefers to communicate via a notebook. Seems to have some residual left-sided abdominal pain and some head pain of the confucianist areas with palpation. Review of Systems Review of Systems: As per above Constitutional: + fatigue Respiratory: no dyspnea Cardiovascular: no chest pain Gastrointestinal: + abdominal pain (diffuse left-sided thad n) Physical Exam Constitutional: well developed, well nourished and + altered mental status ENMT: Ears: + hearing impairment Respiratory: normal respiratory effort, lungs clear to auscultation Cardiovascular: RRR, no murmur, no edema Gastrointestinal (Abdomen): Inspection/Auscultation: abdomen normal to inspection and normal bowel sounds; abdomen not distended Percussion/Palpatio n: + abdomen tender and abdomen soft Neurologic: awake and + confused (intermittent confusion) Psychiatric: Orientation: alert, oriented to person and oriented to place (knows generally he's in a hospital); + not oriented to time Results & Data Results & Data Vital Signs (Past 12 Hours) Vital Signs Temp Pulse Resp BP Pulse Ox O2 Del Method 08/15/24 08:35 Room Air 08/15/24 07:16 36.6 C 75 16 168/73 H 93 Room Air
[2024-08-15] MEDS: ONDANSETRON INJ 2 MG/ML 2 ML VIAL IV PRN (22:00)
[2024-08-16] MEDS: PROCHLORPERAZINE 5 MG in SYRINGE 4 ML IV ONE (01:06)
--- NOTE | 2024-08-16 07:01 | Hospitalist Progress Note ---
Date of Service August 16, 2024 Assessment & Plan (1) Diverticulitis: (2) Giant cell arteritis: (3) Acute kidney injury: (4) Rhabdomyolysis: Plan Patient was admitted and treated for Giant Cell Arteritis - plan was slow taper of prednisone outpatient. Patient then acutely worsened prompting ED visit and subsequent admission for metabolic encephalopathy, deconditioning, and sepsis likely GI source. During hospital stay had acute episode of fever (38.6 C) and respiratory distress w/ O2Sats down into the 70s. This was likely due to an aspiration event. 1) Aspiration Pneumonitis/Pneumonia - Unasyn (MRSA nares negative) with plans to d/c with Augmentin. Aspiration precautions and speech consult. - After discussion with family, with nutritional challenges modified diet could be detrimental to nutritional status. - Consider permissive aspiration as worsening PO will negatively impact overall prognosis. aspiration precautions (though no aspiration noted on swallow study) speech consult --> noted mild to moderate dysphagia w/ slow, prolonged chewing and slowed tongue motion diet --> texture: minced and moist 2) Nausea vomiting/constipation - had not had a recorded BM since admission ( stated he had one on day of admission) until this morning he had diarrhea; stool sample ordered - Miralax, 17 g, PO, BID; could consider a PA suppository, if this is overflow diarrhea - WBC, 12.7 <-- 9.0, increased leukocytosis in context of steady dose or prednisone, 50 mg, PO, daily - C. diff stool test ordered, negative 2) Sepsis likely GI source - Patient did initially meet sepsis criteria with leukocytosis, tachycardia, and fever. Treated empirically with IVF and antibiotics. - CT with signs of diverticulitis at the splenic flexure. - Pain control with Dilaudid 0.25, 0.5 mg IV. We were treating with Unasyn 08/09- 08/11. Acute change in respiratory status and new fever with concern for aspiration pneumonitis prompted switching to Vanc/Zosyn. Repeat BCx drawn. - Blood Cx (08/08), no growth after 5 days; Blood Cx (08/11), no growth after 48 hrs Continue abx - deescalated to Zosyn 08/12, plan to transition to Unasyn 08/14 and plan to d/c on Augmentin; plan for a total course of 5 days (last day 08/16) 3) Hyponatremia Na, 131 <-- 128, likely hypovolemic in the setting of poor PO intake repeat BMP qAM; if continues to down trend may need to restart IVF 4) Delirium superimposed on dementia Most likely delirium on baseline dementia d/t dehydration and/or infection. - Generally clears with time. Continue delirium precautions - blinds up and lights on during the day, melatonin around 8 pm, minimize tubes/sleep disruption, minimize overnight vitals 5) Giant cell arteritis Diagnosed during previous hospital stay; ESR, 40 <-- 105 <-- (>130), improving on steroids - continue pred 50 mg daily 6) DM SSI while inpatient. Resume home meds on d/c - increased glargine from 5 U to 7 U, daily - could consider Novolin-N, an intermediate-acting insulin to match hyperglycemia induced by prednisone 7) Atrial flutter - Rate controlled on metoprolol. Continue metoprolol succinate, 25 mg, PO, daily - Added Eliquis, 5 mg, PO, BID 8) HTN On lisinopril and amlodipine at home. Holding amlodipine as recently started metoprolol 25 mg succinate. - Continue lisinopril, 10 mg, PO, daily; metoprolol succinate, 25 mg, PO, daily #BEATRIZ - likely in the setting of dehydration and mildly elevated CK. Has since resolved. #Aphthous stomatitis- resolved. If recurs rec dental paste with triamcinolone in [employer] #Mastoiditis/chronic sinusitis - completed course of abx 08/03 Code status: DNR/DNI DVT ppx: Eliquis started 08/12 FENGI: speech eval - minced and moist, video swallow 08/15 Dispo: SNF, likely return to [facility] hopefully stable for d/c in the next 1- 2 days Admission and Anticipated Discharge Date Admission Date: August 08, 2024 Supervising Physician Co-Signing Physician Notes I personally examined the patient and verified aguilar points of history and exam, discussed case, and agree with decision making and plan documented by Dr. Chanel. Patient with episode of diarrhea today, c diff negative, KUB with moderate to large stool burden. Prednisone will be tapered slowly. Patient remains on Unasyn, will transition to Augmentin. Plan is for patient to return to rehab at [facility] on discharge. Subjective Pt seen and evaluated at bedside this morning. Less responsive this morning and a poor historian. When presented with written question "Did you vomit last night" he shook his head and said no. Patient then vomited ~ 5 minutes later. Also discovered to have had a liquid BM; pt's first BM since admission. Still very hard of hearing and even with hearing aids he prefers to communicate via a notebook. Today continues to have diffuse abdominal pain, with continued head pain of the taoism areas with palpation. Review of Systems Review of Systems: Patient a poor historian today and unable to give a good overnight history. Constitutional: + fatigue Respiratory: no dyspnea Cardiovascular: no chest pain Gastrointestinal: + abdominal pain (diffuse pain but more tender on left) Physical Exam Constitutional: well developed, well nourished and + altered mental status ENMT: Ears: + hearing impairment and + mastoid abnormality (patient appeared tender to palpation of mastoid area) Respiratory: normal respiratory effort, lungs clear to auscultation Cardiovascular: RRR, no murmur, no edema Gastrointestinal (Abdomen): Inspection/Auscultation: abdomen normal to inspection and normal bowel sounds; abdomen not distended Percussion/Palpation: + abdomen tender and abdomen soft Neurologic: awake and + confused (intermittent confusion) Psychiatric: Orientation: alert, oriented to person and oriented to place (knows generally he's in a hospital); + not oriented to time Results & Data Results & Data Vital Signs (Past 12 Hours) Vital Signs Temp Pulse Resp BP Pulse Ox O2 Del Method O2 Del Method 08/15/24 23:00 Room Air 08/15/24 20:33 36.4 C L 64 16 116/66 96 Room Air 08/15/24 20:26 Room Air Resident Activity Tracking Resident Involvement: Resident Care Provided Care Provided: Adult Hospital Medicine
[2024-08-16 08:05] LABS: Hematocrit (blood only) 38.6 % (42.0-52.0); Mean Corpuscular Hemoglobin 27.4 pg (25.0-34.0); Mean Corpuscular Hgb Conc 33.7 g/dL (32.0-36.0); Mean Corpuscular Volume 81.3 fL (80.0-100.0); Mean Platelet Volume 9.6 fL (9.4-12.4); Platelet Count 243 K/uL (130-400); RDW Standard Deviation 42.8 fL (36.4-46.3); Red Blood Count 4.75 M/uL (4.70-6.10); White Blood Count 12.67 K/ul (4.8-10.8)
[2024-08-16 08:24] LABS: BUN Creatinine Ratio 27.1 (10-20); Creatinine Clr Calc Pharmacy 60.2 ml/min
[2024-08-16] MEDS: LANTUS PER UNIT CHARGE SQ SCH (09:46)
--- NOTE | 2024-08-16 14:55 | XRay Report ---
[facility] CLINICAL HISTORY: Constipation. COMPARISON STUDY: CT of the abdomen and pelvis March 08, 2025. FINDINGS: Contrast within the colon and rectum is from recent video swallow. The bowel gas pattern is normal. There is a moderate amount of stool within the colon and moderate to large amount of stool w ithin the rectum. IMPRESSION: 1. No evidence for a bowel obstruction. 2. Moderate amount of stool within the colon and moderate to large amount of stool within the rectum. ACT 112: Negative or not required by law. Electronically signed by: Prince Paul M.D. 08/16/2024 2:54 PM
[2024-08-16] MEDS: SENNA 8.6 MG TAB PO SCH (16:06)
[2024-08-16] MEDS: SODIUM CHLORIDE 0.9% 1,000 ML IV SCH (16:41)
[2024-08-16] MEDS: POLYETHYLENE (MIRALAX) 17 GM PACK PO SCH (21:10)
[2024-08-17 08:15] LABS: Hematocrit (blood only) 42.6 % (42.0-52.0); Hemoglobin 13.9 g/dl (14.0-18.0); Mean Corpuscular Hemoglobin 26.8 pg (25.0-34.0); Mean Corpuscular Hgb Conc 32.6 g/dL (32.0-36.0); Mean Corpuscular Volume 82.2 fL (80.0-100.0); Mean Platelet Volume 9.7 fL (9.4-12.4); Platelet Count 241 K/uL (130-400); RDW Coefficient of Variation 15.7 % (11.5-14.5); RDW Standard Deviation 45.5 fL (36.4-46.3); Red Blood Count 5.18 M/uL (4.70-6.10); White Blood Count 9.59 K/ul (4.8-10.8)
[2024-08-17 08:37] LABS: Albumin Level 2.9 gm/dl (3.4-5.0); BUN Creatinine Ratio 28.3 (10-20); Bilirubin,Total 0.5 mg/dl (0.2-1.0); Calcium 7.7 mg/dl (8.6-10.3); Creatinine Clr Calc Pharmacy 54.5 ml/min; Globulin 2.9 gm/dl (2.5-4.0); Potassium 4.1 mmol/L (3.5-5.1); Total Protein 5.8 gm/dl (6.0-8.3)
[2024-08-17 08:57] LABS: Basophils # (auto) 0.01 K/uL (0.00-0.20); Basophils % (auto) 0.1 %; Immature Granulocytes # (auto) 0.07 K/uL (0.01-0.20); Immature Granulocytes % (auto) 0.7 %; Lymphocytes # (auto) 0.44 K/uL (1.20-3.40); Lymphocytes % (auto) 4.6 %; Monocytes # (auto) 0.41 K/uL (0.11-0.59); Monocytes % (auto) 4.3 %; Neutrophils # (auto) 8.66 K/uL (1.40-6.50); Neutrophils % (auto) 90.3 %
[2024-08-17] MEDS: LACTULOSE 200GM/700ML WTR ENEMA PR ONE (17:17)
[2024-08-17] MEDS: bisacodyL 10 MG SUPP PR STA (19:02)
--- NOTE | 2024-08-18 07:02 | Hospitalist Progress Note ---
Date of Service August 18, 2024 Assessment & Plan (1) Diverticulitis: (2) Giant cell arteritis: (3) Acute kidney injury: (4) Rhabdomyolysis: Plan Patient was admitted and treated for Giant Cell Arteritis - plan was slow taper of prednisone outpatient. Patient then acutely worsened prompting ED visit and subsequent admission for metabolic encephalopathy, deconditioning, and sepsis likely GI source. During hospital stay had acute episode of fever (38.6 C) and respiratory distress w/ O2Sats down into the 70s. This was likely due to an aspiration event. 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 Associated soft tissue thickening and enhancement within the nasopharynx. The findings are highly suggestive of a neoplastic etiology such as nasopharyngeal carcinoma" -Findings discussed with ENT on-call provider who recommended transfer for neurosurgery evaluation -Case discussed with [facility], patient will be accepted by medicine team with neurosurgery, ENT consults after transfer -Currently awaiting transfer Acute CVA -Brain MRI showed "A few suspected small acute infarcts measuring up to 7 mm" on 08/18 incidentally -Has had increased somnolence for several days, pupil asymmetry noted on exam this a.m. -Telestroke completed, recommended CTA head/neck and aspirin given rectally -Recommended transfer as planned Aspiration Pneumonitis/Pneumonia - After discussion with family, with nutritional challenges modified diet could be detrimental to nutritional status. - Consider permissive aspiration as worsening PO will negatively impact overall prognosis. aspiration precautions (though no aspiration noted on swallow study) speech consult --> noted mild to moderate dysphagia w/ slow, prolonged chewing and slowed tongue motion diet --> texture: minced and moist Nausea vomiting/constipation - One episode of diarrhea on 08/17 after more than 5 days without BM - Miralax, suppositories and enema completed without success, manual disimpaction was marginally successful on 08/17 - C. diff stool test negative, although multiple family members currently have norovirus - anti-emetics PRN Sepsis likely GI source - Patient did initially meet sepsis criteria with leukocytosis, tachycardia, and fever. Treated empirically with IVF and antibiotics. - CT with signs of diverticulitis at the splenic flexure. - Pain control with Dilaudid 0.25, 0.5 mg IV. We were treating with Unasyn 08/09- 08/11. Acute change in respiratory status and new fever with concern for aspiration pneumonitis prompted switching to Vanc/Zosyn. Repeat BCx drawn. - Blood Cx (08/08), no growth after 5 days; Blood Cx (08/11), no growth after 48 hrs Antibiotics- deescalated to Zosyn 08/12, transitioned to Unasyn 08/14-08/17 - Increased leukocytosis and fever on 08/18, CT A/P did not show acute changes - Started Vancomycin and Cefepime on 08/18 due to progressive symptoms and new fever Delirium superimposed on dementia Most likely delirium on baseline dementia d/t dehydration and/or infection. - Generally clears with time. 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 Resume home meds on d/c - increased glargine from 5 U to 7 U, daily - could consider Novolin-N, an intermediate-acting insulin to match hyperglycemia induced by prednisone Atrial flutter - Rate controlled on metoprolol. Continue metoprolol succinate, 25 mg, PO, daily - Added Eliquis, 5 mg, PO, BID HTN On lisinopril and amlodipine at home. Holding amlodipine as recently started metoprolol 25 mg succinate. - Continue lisinopril, 10 mg, PO, daily; metoprolol succinate, 25 mg, PO, daily #BEATRIZ - likely in the setting of dehydration and mildly elevated CK. Has since resolved. #Aphthous stomatitis- resolved. If recurs rec dental paste with triamcinolone in [place] #Mastoiditis/chronic sinusitis - completed course of abx 08/03 Code status: DNR/DNI DVT ppx: Eliquis started 08/12 FENGI: speech eval - minced and moist, video swallow 08/15 Dispo: Transfer to [facility] [place]mission and Anticipated Discharge Date Admission Date: August 08, 2024 Supervising Physician Co-Signing Physician Notes I personally examined the patient and verified aguilar points of history and exam, discussed case, and agree with decision making and plan documented by Dr. Martin. Patient is a 83-year-old male with past medical history pertinent for vascular parkinsonism, type 2 diabetes, hypertension, JANET, cognitive impairment, chronic sinusitis, and sensorineural hearing loss on admission for sepsis in setting of acute diverticulitis in addition to BEATRIZ and rhabdomyolysis. Patient had fever overnight, blood cultures were initiated, cefepime and vancomycin restarted. Emergent head CT ordered today for dilated and nonreactive pupil on the right revealing abnormal nasopharyngeal retropharyngeal soft tissue thickening with associated erosion to clindamycin skull base suspicious for neoplastic process. ENT consulted but not in hospital. 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 Transfer to [facility] for further treatment. Patient was previously admitted from 07/23 - 07/31/24 where he was diagnosed with giant cell arteritis based off CT findings and placed on prednisone 50 mg daily. On 07/21/2024, brain MRI that showed fluid in the mastoid air cells representing mastoiditis and mild paranasal sinus disease. Patient was also treated with IV Unasyn and transitioned to Augmentin for 3 week course. Neck CTA that showed circumferential rind of soft tissue density surrounding bilateral distal common carotid and cervical ICAs in addition to a suggestive of mild erosive changes along the abutting clivus. Patient follows outpatient with ENT and was recommended to have further evaluation outpatient. Subjective Patient was seen and examined at bedside. Nursing reports that patient has been less responsive this morning, will open eyes and respond to stimulation. Very hard of hearing. Nursing reports patient spit out his medications this morning. Review of Systems Review of Systems: As per above Physical Exam Constitutional: + ill appearing and + disheveled Eyes: + anicteric sclerae Pupils asymmetric ENMT: Ears: + hearing impairment; no external ear abnormality Nose: no external nose abnormality Respiratory: normal respiratory effort, lungs clear to auscultation Cardiovascular: Rate/Rhythm: regular rhythm and + tachycardic Extremities: no edema Gastrointestinal (Abdomen): Abdomen soft, +tender to palpation, +bowel sounds Skin: no rashes, warm and dry Psychiatric: Awake but not alert/oriented Results & Data Results & Data Vital Signs (Past 12 Hours) Vital Signs Temp Pulse Resp BP Pulse Ox O2 Del Method 08/17/24 23:29 36.7 C 94 H 18 131/76 94 Room Air 08/17/24 22:25 Room Air Diagnostic Findings Abdomen/Pelvis CT 08/18/24 09:[address] WITH IV CONTRAST CT DOSE: 2213.68 HISTORY: History of diverticulitis abdominal pain, fever TECHNIQUE: Multiaxial CT images of the abdomen and pelvis were performed following the IV administration of 94 cc of Optiray, sagittal and coronal reconstructions were performed. A dose lowering technique was utilized adhering to the principles of ALARA. COMPARISON STUDY: 08/08/2024 FINDINGS: The inflammatory stranding in the left upper quadrant adjacent to the splenic flexure has significantly diminished in conspicuity. There is moderate distention of the right colon and transverse colon with air-fluid levels. The distal descending colon and sigmoid colon demonstrate extensive diverticulosis. There is a fecal impaction present. There is no free air. There is no solid organ lesion identified. The gallbladder and bile ducts are unremarkable. There is no obstructive uropathy. There is no aortic aneurysm or periaortic adenopathy. In the pelvis, the rectum is moderately distended with stool and barium. The unopacified urinary bladder is negative. The appendix is normal. Small bilateral pleural effusions have developed since the prior study. The heart remains enlarged. The lumbar spine is scoliotic with severe multilevel degenerative change. IMPRESSION: Mild residual inflammatory changes are noted adjacent to the splenic flexure although the findings are less conspicuous than on the prior study. Fecal impaction. Small bilateral pleural effusions have developed. ACT 112: Negative or not required by law. The above report was generated using voice recognition software. It may contain grammatical, syntax or spelling errors. Electronically signed by: Telma Mayers M.D. 08/18/2024 10:[address] 08/18/24 09:25 CT OF THE HEAD WITHOUT CONTRAST CLINICAL HISTORY: altered mental status COMPARISON STUDY: MRI brain February 13, 2024. Head CT August 08, 2024. CT DOSE: 2213.68 mGy.cm TECHNIQUE: Helical axial images of the head were obtained without IV contrast. Automated exposure control was utilized for the study. A dose lowering technique was utilized adhering to the principles of ALARA. FINDINGS: No acute intracranial hemorrhage, midline shift or mass effect is present. Ventricular system is unremarkable. Basal cisterns are patent. There are no extra-axial collections. No findings to suggest acute dural sinus fibrosis or acute territorial infarct. White matter hypodensity suggests small vessel disease. Bilateral mastoid effusions are again noted. Of note, there is abnormal nasopharyngeal/retropharyngeal soft tissue thickening with associated erosion of the clivus an additional portions of the skull base. The findings are partially imaged on this examination. IMPRESSION: 1. No acute intracranial findings. 2. Abnormal nasopharyngeal/retropharyngeal soft tissue thickening with associated erosion of the clivus an additional portions of the skull base. Associated bilateral mastoid effusions. These findings are highly suspicious for a neoplastic process. Correlation with direct visualization is recommended. This finding will be called/faxed to the ordering provider at time of dictation. ACT 112: Positive. There are findings on this exam that require communication between the performing entity and the patient following Patient Test Result Information Act ([place] Act 112) guidelines. Electronically signed by: Prince Paul M.D. 08/18/2024 10:46 AM Brain MRI 08/18/24 10:57 MRI OF THE BRAIN WITHOUT AND WITH IV CONTRAST CLINICAL HISTORY: new finding on head CT, erosion of the clivus COMPARISON STUDY: MRI of the brain July 21, 2024. Head CT performed earlier today. TECHNIQUE: Utilizing a 1.5 Merari magnet and dedicated coil, multiplanar, multiecho imaging of the brain was performed pre and postcontrast administration. IV administration of 8.5 mL of Gadavist contrast was uneventful. Thin cut T1 post contrast imaging was performed. FINDINGS: Diffusion-weighted sequence demonstrates a small amount of layering material which demonstrates restricted diffusion within the occipital horns of the lateral ventricles. There may also be restricted diffusion within the CSF space within the posterior fossa. There is a 7 mm focus of restricted diffusion within the periventricular left frontal lobe on axial image 17 of 27. There is also a 7 mm small focus of restricted diffusion within the left parietal lobe on image 18. These are hypointense on the ADC map. Ventricular system is stable in size from earlier exams. Of note, there is extensive marrow replacement with associated enhancement within the skull base, most evident on the T1-weighted sequences. This corresponds to bony erosion shown by CT. This enhancing soft tissue may originate from the nasopharynx. This includes erosion of the clivus and likely involves the bilateral foramen lacerum. No acute intracranial hemorrhage, midline shift or mass effect is present. White matter T2 hyperintens e foci suggest small vessel disease. There is no intracranial mass. No leptomeningeal enhancement is identified on the postcontrast sequences. Large bilateral mastoid effusions are present. IMPRESSION: 1. Small amount of layering material which demonstrates restricted diffusion within the occipital horns of the lateral ventricles. No associated leptomeningeal enhancement. This finding is nonspecific but an infectious process such as meningitis is the diagnosis of exclusion. Neoplastic or traumatic etiology is within the differential but considered less likely. This could be correlated with CSF analysis. Findings will be called/faxed to the ordering provider at time of dictation. 2. Marrow replacement with associated enhancement within the skull base. Associated soft tissue thickening and enhancement within the nasopharynx. The findings are highly suggestive of a neoplastic etiology such as nasopharyngeal carcinoma. Associated bilateral mastoid effusions related to eustachian tube obstruction. ENT consultation is recommended. 3. A few suspected small acute infarcts measuring up to 7 mm. ACT 112: Negative or not required by law. Electronically signed by: Prince Paul M.D. 08/18/2024 2:23 PM Resident Activity Tracking Resident Involvement: Resident Care Provided Care Provided: [facility]
[2024-08-18 07:38] LABS: Hematocrit (blood only) 37.6 % (42.0-52.0); Hemoglobin 12.4 g/dl (14.0-18.0); Mean Corpuscular Hemoglobin 27.2 pg (25.0-34.0); Mean Corpuscular Volume 82.5 fL (80.0-100.0); Mean Platelet Volume 9.5 fL (9.4-12.4); Platelet Count 250 K/uL (130-400); RDW Standard Deviation 46.7 fL (36.4-46.3); Red Blood Count 4.56 M/uL (4.70-6.10); White Blood Count 11.72 K/ul (4.8-10.8)
[2024-08-18 08:03] LABS: Immature Granulocytes # (auto) 0.09 K/uL (0.01-0.20); Immature Granulocytes % (auto) 0.8 %; Lymphocytes # (auto) 0.55 K/uL (1.20-3.40); Lymphocytes % (auto) 4.7 %; Monocytes # (auto) 0.47 K/uL (0.11-0.59); Neutrophils # (auto) 10.61 K/uL (1.40-6.50); Neutrophils % (auto) 90.5 %
[2024-08-18 08:09] LABS: Albumin Level 2.5 gm/dl (3.4-5.0); Bilirubin,Total 0.4 mg/dl (0.2-1.0); Calcium 7.6 mg/dl (8.6-10.3); Creatinine Clr Calc Pharmacy 57.8 ml/min; Globulin 2.5 gm/dl (2.5-4.0); Magnesium 1.8 mg/dl (1.7-2.4); Potassium 3.9 mmol/L (3.5-5.1)
[2024-08-18] MEDS: ACETAMINOPHEN 1,000 MG/100 ML VIAL IV STA (08:24)
[2024-08-18] MEDS: OPTIRAY 320 100ml IV ONE (10:12)
--- NOTE | 2024-08-18 10:47 | CT Scan Report ---
CT OF THE HEAD WITHOUT CONTRAST CLINICAL HISTORY: altered mental status COMPARISON STUDY: MRI brain February 13, 2024. Head CT August 08, 2024. CT DOSE: 2213.68 mGy.cm TECHNIQUE: Helical axial images of the head were obtained without IV contrast. Automated exposure con trol was utilized for the study. A dose lowering technique was utilized adhering to the principles o f ALARA. FINDINGS: No acute intracranial hemorrhage, midline shift or mass effect is present. Ventricular syst em is unremarkable. Basal cisterns are patent. There are no extra-axial collections. No findings to s uggest acute dural sinus fibrosis or acute territorial infarct. White matter hypodensity suggests sma ll vessel disease. Bilateral mastoid effusions are again noted. Of note, there is abnormal nasopharyn geal/retropharyngeal soft tissue thickening with associated erosion of the clivus an additional porti ons of the skull base. The findings are partially imaged on this examination. IMPRESSION: 1. No acute intracranial findings. 2. Abnormal nasopharyngeal/retropharyngeal soft tissue thickening with associated erosion of the cliv us an additional portions of the skull base. Associated bilateral mastoid effusions. These findings a re highly suspicious for a neoplastic process. Correlation with direct visualization is recommended. This finding will be called/faxed to the ordering provider at time of dictation. ACT 112: Positive. There are findings on this exam that require communication between the performing entity and the patient following Patient Test Result Information Act ([place] Act 112) guidelines. Electronically signed by: Prince Paul M.D. 08/18/2024 10:46 AM
--- NOTE | 2024-08-18 10:59 | CT Scan Report ---
ABDOMEN AND PELVIS CT WITH IV CONTRAST CT DOSE: 2213.68 HISTORY: History of diverticulitis abdominal pain, fever TECHNIQUE: Multiaxial CT images of the abdomen and pelvis were performed following the IV administrat ion of 94 cc of Optiray, sagittal and coronal reconstructions were performed. A dose lowering techni que was utilized adhering to the principles of ALARA. COMPARISON STUDY: 08/08/2024 FINDINGS: The inflammatory stranding in the left upper quadrant adjacent to the splenic flexure has s ignificantly diminished in conspicuity. There is moderate distention of the right colon and transvers e colon with air-fluid levels. The distal descending colon and sigmoid colon demonstrate extensive di verticulosis. There is a fecal impaction present. There is no free air. There is no solid organ lesion identified. The gallbladder and bile ducts are unremarkable. There is no obstructive uropathy. There is no aortic aneurysm or periaortic adenopathy. In the pelvis, the rectum is moderately distended with stool and barium. The unopacified urinary blad meg is negative. The appendix is normal. Small bilateral pleural effusions have developed since the prior study. The heart remains enlarged. The lumbar spine is scoliotic with severe multilevel degenerative change. IMPRESSION: Mild residual inflammatory changes are noted adjacent to the splenic flexure although the findings are less conspicuous than on the prior study. Fecal impaction. Small bilateral pleural effusions have developed. ACT 112: Negative or not required by law. The above report was generated using voice recognition software. It may contain grammatical, syntax o r spelling errors. Electronically signed by: Telma Mayers M.D. 08/18/2024 10:56 AM
[2024-08-18] MEDS: GADOBUTROL 65ML VIAL IV ONE (13:27)
--- NOTE | 2024-08-18 14:25 | Magnetic Resonance Report ---
MRI OF THE BRAIN WITHOUT AND WITH IV CONTRAST CLINICAL HISTORY: new finding on head CT, erosion of the clivus COMPARISON STUDY: MRI of the brain July 21, 2024. Head CT performed earlier today. TECHNIQUE: Utilizing a 1.5 Merari magnet and dedicated coil, multiplanar, multiecho imaging of the br ain was performed pre and postcontrast administration. IV administration of 8.5 mL of Gadavist contr ast was uneventful. Thin cut T1 post contrast imaging was performed. FINDINGS: Diffusion-weighted sequence demonstrates a small amount of layering material which demonstr ates restricted diffusion within the occipital horns of the lateral ventricles. There may also be res tricted diffusion within the CSF space within the posterior fossa. There is a 7 mm focus of restricte d diffusion within the periventricular left frontal lobe on axial image 17 of 27. There is also a 7 m m small focus of restricted diffusion within the left parietal lobe on image 18. These are hypointens e on the ADC map. Ventricular system is stable in size from earlier exams. Of note, there is extensiv e marrow replacement with associated enhancement within the skull base, most evident on the T1-weight ed sequences. This corresponds to bony erosion shown by CT. This enhancing soft tissue may originate from the nasopharynx. This includes erosion of the clivus and likely involves the bilateral foramen l acerum. No acute intracranial hemorrhage, midline shift or mass effect is present. White matter T2 hy perintense foci suggest small vessel disease. There is no intracranial mass. No leptomeningeal enhanc ement is identified on the postcontrast sequences. Large bilateral mastoid effusions are present. IMPRESSION: 1. Small amount of layering material which demonstrates restricted diffusion within the occipital hor ns of the lateral ventricles. No associated leptomeningeal enhancement. This finding is nonspecific b ut an infectious process such as meningitis is the diagnosis of exclusion. Neoplastic or traumatic et iology is within the differential but considered less likely. This could be correlated with CSF jeremy sis. Findings will be called/faxed to the ordering provider at time of dictation. 2. Marrow replacement with associated enhancement within the skull base. Associated soft tissue thick ening and enhancement within the nasopharynx. The findings are highly suggestive of a neoplastic etio logy such as nasopharyngeal carcinoma. Associated bilateral mastoid effusions related to eustachian t ube obstruction. ENT consultation is recommended. 3. A few suspected small acute infarcts measuring up to 7 mm. ACT 112: Negative or not required by law. Electronically signed by: Prince Paul M.D. 08/18/2024 2:23 PM
[2024-08-18] MEDS ORDERED: PHARMACIST DISCHARGE MED REC CONSULT PRN (14:58)
[2024-08-18] MEDS ORDERED: VANCOMYCIN CONSULT ACTIVE PRN (15:06)
[2024-08-18] MEDS: ASPIRIN 81 MG ECTAB PO SCH (16:59)
[2024-08-18] MEDS: ASPIRIN 325 MG ECTAB PO STA (16:59)
[2024-08-18] MEDS: OPTIRAY 320 125ml IV ONE (17:49)
[2024-08-18] MEDS: VANCOMYCIN HCL 1,750 MG in SODIUM CHLORIDE 0.9% 500 ML IV ONE (17:54)
[2024-08-18] MEDS: ASPIRIN 300 MG SUPP PR ONE (17:54)
[2024-08-18] MEDS: CEFEPIME 2000MG 2,000 MG/20 ML SYR IV SCH (17:57)
[2024-08-18] MEDS: 4.5GM X1 IV ONE (18:11)
--- NOTE | 2024-08-18 18:26 | CT Scan Report ---
Clinical history: Stroke Technique: Axial computed tomography images were obtained of the brain after the administration of intravenous contrast according to the CT angiogram protocol Findings: No definite stenosis or aneurysm is seen of the anterior, middle, or posterior cerebral artery circulations. The visualized vertebral arteries and the basilar artery appear unremarkable Impression: No definite stenosis or aneurysm of the intracranial arteries Electronically signed by Ranjan Blackwood 08-18-2024 6:26 PM
--- NOTE | 2024-08-18 18:28 | CT Scan Report ---
Clinical history: Stroke Technique: Axial computed tomography images were obtained of the neck after the administration of intravenous contrast according to the CT angiogram protocol Findings: No stenosis is seen of the common carotid arteries bilaterally. There is mild plaque within the left carotid bulb, without stenosis. The remainder of the internal carotid arteries appear patent bilaterally. No stenosis of the external carotid arteries is seen The vertebral arteries are patent bilaterally with no significant stenosis seen. The visualized thoracic aorta appears unremarkable There is a right pleural effusion Impression: 1. No definite stenosis of the neck arteries 2. Right pleural effusion Electronically signed by Ranjan Blackwood 08-18-2024 6:27 PM
--- NOTE | 2024-08-18 18:45 | Discharge Summary ---
Date of Service August 18, 2024 Admission HPI Per Admitting Provider The patient is an 83-year-old male with past medical history including hypertension, GERD, diabetes mellitus, mild cognitive impairment, memory loss, hypertension, BPH with LUTS, JANET, cerebrovascular disease, vascular parkinsonism and hyponatremia. He was most recently admitted to [facility] from 07/23- 07/31/2024, where he diagnosed with giant cell arteritis. He had been discharged on prednisone 50 mg daily for a and initial total of 14 days, with plans to adjust dosing as needed. He had been doing somewhat better until the past few days, when he developed decreased oral intake, some abdominal discomfort, and has been laying in bed for most of the past few days. Workup in the emergency department including laboratory suggestive of rhabdomyolysis, dehydration, and CT suggestive of mild acute diverticulitis at the splenic flexure. Admission Exam Per Admitting Provider The patient is awake, intermittently grimacing in pain, with probable source abdomen, normocephalic and atraumatic, lying in bed and in intermittent acute distress secondary to abdominal pain as noted HEENT--PERRL, EOMI, mucous membranes and oropharynx mildly dry. Neck--supple. No JVD. No bruits. Thyroid normal, trachea midline, no adenopathy. Heart--normal S1 and S2. No murmurs, rubs or gallops. Lungs--clear bilaterally, no respiratory distress, no accessory muscle use. Abdomen--decreased bowel sounds. Tender left lower quadrant and left lateral quadrant. Extremities--no cyanosis or clubbing. No edema. Dermatologic--normal skin turgor, normal color, no abnormal lymph nodes, no rash. Neurologic--cranial nerves II through XII grossly intact. Rheumatologic--normal range of motion. Psychiatric--responsiveness limited by underlying cognitive impairment, and current medical condition Principal Diagnosis Nasopharyngeal Carcinoma Discharge Exam Constitutional + frail appearing Eyes + irregular pupils; no conjunctival abnormality ENMT Ears: no external ear abnormality Nose: no external nose abnormality Moist mucous membranes. Very hard of hearing Respiratory normal respiratory effort, lungs clear to auscultation Cardiovascular Rate/Rhythm: + irregularly irregular Extremities: no edema Gastrointestinal (Abdomen) Inspection/Auscultation: + abdomen distended and normal bowel sounds Percussion/Palpation: + abdomen tender and abdomen soft Skin no rashes, warm and dry Psychiatric Somnolent, responds to tactile stimuli Discharge Data Allergies Allergy/AdvReac Type Severity Reaction Status Date / Time house dust mite Allergy Verified 07/15/24 15:33 No Known Drug Allergies Allergy Verified 07/15/24 15:33 tree and shrub pollen Allergy Verified 07/15/24 15:33 Consultations 08/08/24 20:10 ED Decision to Admit Stat 08/08/24 20:33 ED Decision to Admit Stat 08/18/24 10:59 Consult Otolaryngology (Head and Neck) Stat 08/18/24 17:36 Burn CD for patient Routine Ordered Studies 08/08/24 17:19 CT head/brain wo con Stat 08/08/24 17:41 CT Abd and Pelvis [CT abd pelvis IV con only] Stat 08/15/24 09:30 FL video swallow Routine 08/18/24 09:25 CT Abd and Pelvis [CT abd pelvis IV con only] Stat CT head/brain wo con Stat 08/18/24 10:57 MRI Brain [MR brain wo/w con] Stat 08/18/24 16:04 CTA head w con [CT angio head w con] Stat CTA neck with con [CT angio neck with con] Stat Chest X-Ray 08/08/24 17:19 INDICATION: Cough. TECHNIQUE: Frontal radiograph of the chest. COMPARISON: Radiograph from 07/22/2024. FINDINGS: Cardiomegaly. Subsegmental atelectasis in the lung bases. Pulmonary vasculature appear within normal limits. No infiltrate, pleural effusion or pneumothorax. No acute osseous abnormality evident. IMPRESSION: No acute cardiopulmonary process. Electronically signed by Ankit Leyva 08-08-2024 6:[address] 08/08/24 17:19 INDICATION: Pain and injury. COMPARISON: CT from 06/27/2024 TECHNIQUE: Axial CT images of the head were obtained without IV contrast. Coronal and sagittal reformations were reviewed. FINDINGS: Harding-white differentiation is relatively preserved. No mass, mass effect or midline shift. Chronic ischemic white matter changes. No evidence of acute large territorial infarction or acute intracranial hemorrhage. Ventricles appear normal in size. Basal cisterns are patent. No depressed calvarial fracture. Fluid noted in the mastoid air cells, similar to prior. IMPRESSION: No acute intracranial process. Electronically signed by Ankit Leyva 08-08-2024 6:02 PM Abdomen/Pelvis CT 08/08/24 17:41 EXAM: CT Abdomen and Pelvis With Intravenous Contrast INDICATION: Left lower quadrant pain. TECHNIQUE: Axial computed tomography images of the abdomen and pelvis with intravenous contrast. Sagittal and coronal reformatted images were created and reviewed. This CT exam was performed using one or more of the following dose reduction techniques: automated exposure control, adjustment of the mA and/or kV according to patient size, and/or use of iterative reconstruction technique. CONTRAST: 94 ml of Optiray 320 was administered intravenously. COMPARISON: No relevant prior studies available. FINDINGS: Limitations: None. Lung bases: No abnormality noted. Pleural space: No visualized pleural effusion or pneumothorax. Heart: No abnormality noted. Mediastinum: No abnormality noted. ABDOMEN: Liver: No abnormality noted. Gallbladder and bile ducts: Probable small stone in the gallbladder neck. No ductal dilatation or stone. Pancreas: Homogeneous enhancement. No mass, inflammation or ductal dilation. Spleen: No significant abnormality noted. Adrenals: No significant abnormality noted. Kidneys and ureters: 2 mm linear stone left kidney. Kidneys otherwise appear normal. No hydronephrosis. Stomach and bowel: Moderate amounts of stool in the distal colon. Moderate left colonic diverticulosis. There is minimal stranding in the splenic flexure of the colon along the inferior spleen series 2 image 35 through 37. PELVIS: Appendix: No findings to suggest acute appendicitis. Bladder: No filling defects to suggest mass or large stone. No inflammation. Reproductive: No abnormalities noted. ABDOMEN and PELVIS: Intraperitoneal space: No free air. No significant fluid collection. Bones/joints: Degenerative changes noted in the scoliotic spine. No acute osseous abnormality noted. Soft tissues: No significant abnormality noted. Vasculature: Atherosclerotic calcification of the aorta and branches. No aneurysm. Lymph nodes: No pathologically enlarged lymph nodes. IMPRESSION: 1. Findings strongly suspicious for mild acute diverticulitis at the splenic flexure. No complication. 2. 2 mm linear nonobstructing left kidney stone. ACT 112: Negative or not required by law. Electronically signed by Ida Steiner 08-08-2024 7:23 PM Chest X-Ray 08/11/24 15:13 EXAM: Radiographs of the Chest 2 Views INDICATION: Fever. Hypoxia. TECHNIQUE: Frontal and lateral views of the chest. COMPARISON: 08/08/2024 FINDINGS: Lungs and pleural spaces: There is slight increase patchy infiltrate in the left base and new mild patchy bronchial thickening and infiltrate in the right base. New trace left pleural effusion. No pneumothorax. Heart: Normal shape and configuration. Mediastinum: Normal contour. Bones/joints: Degenerative changes noted throughout the spine and both shoulders. No lytic or blastic lesions noted. IMPRESSION: Increased left and new patchy right basilar pneumonia and small left pleural effusion. ACT 112: Negative or not required by law. Electronically signed by Jatin Ida 08-11-2024 5:05 PM Hip/Pelvis X-Ray 08/12/24 09:53 XR hip RT 2V w pelvis CLINICAL HISTORY: Right hip pain. COMPARISON: CT of the abdomen and pelvis August 08, 2024. FINDINGS: Sacroiliac joints and symphysis pubis are intact. There are no fractures within the pelvis or hips. There are no osseous lesions. There is mild to moderate joint space narrowing and osteophytosis of both hips. There is no evidence for avascular necrosis of the femoral heads. Lumbar spine levoscoliosis is partially imaged on this examination. IMPRESSION: 1. No fractures within the pelvis or hips. 2. Mild to moderate bilateral hip osteoarthritis. ACT 112: Negative or not required by law. Electronically signed by: Prince Paul M.D. 08/12/2024 11:06 AM Videofluoroscopic Swallow 08/15/24 09:30 FL video swallow CLINICAL HISTORY: assess for aspiration COMPARISON STUDY: None TECHNIQUE: Fluoroscopic observation of swallowing function was performed in conjunction was pathology. Fluoroscopy time was 2.01 minutes with 8 mGy dose. FINDINGS: There is persistent premature spilling over the base of the tongue wit h pooling of contrast material in the pharynx and in particular the vallecular recess. There is repeated, mild laryngeal penetration. No aspiration was observed. IMPRESSION: Negative for aspiration ACT 112: Negative or not required by law. Electronically signed by: Telma Mayers M.D. 08/15/2024 11:11 AM KUB X-Ray 08/16/24 11:39 KUB CLINICAL HISTORY: Constipation. COMPARISON STUDY: CT of the abdomen and pelvis March 08, 2025. FINDINGS: Contrast within the colon and rectum is from recent video swallow. The bowel gas pattern is normal. There is a moderate amount of stool within the colon and moderate to large amount of stool within the rectum. IMPRESSION: 1. No evidence for a bowel obstruction. 2. Moderate amount of stool within the colon and moderate to large amount of stool within the rectum. ACT 112: Negative or not required by law. Electronically signed by: Prince Paul M.D. 08/16/2024 2:54 PM Abdomen/Pelvis CT 08/18/24 09:[address] WITH IV CONTRAST CT DOSE: 2213.68 HISTORY: History of diverticulitis abdominal pain, fever TECHNIQUE: Multiaxial CT images of the abdomen and pelvis were performed following the IV administration of 94 cc of Optiray, sagittal and coronal reconstructions were performed. A dose lowering technique was utilized adhering to the principles of ALARA. COMPARISON STUDY: 08/08/2024 FINDINGS: The inflammatory stranding in the left upper quadrant adjacent to the splenic flexure has significantly diminished in conspicuity. There is moderate distention of the right colon and transverse colon with air-fluid levels. The distal descending colon and sigmoid colon demonstrate extensive diverticulosis. There is a fecal impaction present. There is no free air. There is no solid organ lesion identified. The gallbladder and bile ducts are unremarkable. There is no obstructive uropathy. There is no aortic aneurysm or periaortic adenopathy. In the pelvis, the rectum is moderately distended with stool and barium. The unopacified urinary bladder is negative. The appendix is normal. Small bilateral pleural effusions have developed since the prior study. The heart remains enlarged. The lumbar spine is scoliotic with severe multilevel degenerative change. IMPRESSION: Mild residual inflammatory changes are noted adjacent to the splenic flexure although the findings are less conspicuous than on the prior study. Fecal impaction. Small bilateral pleural effusions have developed. ACT 112: Negative or not required by law. The above report was generated using voice recognition software. It may contain grammatical, syntax or spelling errors. Electronically signed by: Telma Mayers M.D. 08/18/2024 10:[address] 08/18/24 09:25 CT OF THE HEAD WITHOUT CONTRAST CLINICAL HISTORY: altered mental status COMPARISON STUDY: MRI brain February 13, 2024. Head CT August 08, 2024. CT DOSE: 2213.68 mGy.cm TECHNIQUE: Helical axial images of the head were obtained without IV contrast. Automated exposure control was utilized for the study. A dose lowering t echnique was utilized adhering to the principles of ALARA. FINDINGS: No acute intracranial hemorrhage, midline shift or mass effect is present. Ventricular system is unremarkable. Basal cisterns are patent. There are no extra-axial collections. No findings to suggest acute dural sinus fibrosis or acute territorial infarct. White matter hypodensity suggests small vessel disease. Bilateral mastoid effusions are again noted. Of note, there is abnormal nasopharyngeal/retropharyngeal soft tissue thickening with associated erosion of the clivus an additional portions of the skull base. The findings are partially imaged on this examination. IMPRESSION: 1. No acute intracranial findings. 2. Abnormal nasopharyngeal/retropharyngeal soft tissue thickening with associated erosion of the clivus an additional portions of the skull base. Associated bilateral mastoid effusions. These findings are highly suspicious for a neoplastic process. Correlation with direct visualization is recommended. This finding will be called/faxed to the ordering provider at time of dictation. ACT 112: Positive. There are findings on this exam that require communication between the performing entity and the patient following Patient Test Result Information Act ([place] Act 112) guidelines. Electronically signed by: Prince Paul M.D. 08/18/2024 10:46 AM Brain MRI 08/18/24 10:57 MRI OF THE BRAIN WITHOUT AND WITH IV CONTRAST CLINICAL HISTORY: new finding on head CT, erosion of the clivus COMPARISON STUDY: MRI of the brain July 21, 2024. Head CT performed earlier today. TECHNIQUE: Utilizing a 1.5 Merari magnet and dedicated coil, multiplanar, multiecho imaging of the brain was performed pre and postcontrast administration. IV administration of 8.5 mL of Gadavist contrast was uneventful. Thin cut T1 post contrast imaging was performed. FINDINGS: Diffusion-weighted sequence demonstrates a small amount of layering material which demonstrates restricted diffusion within the occipital horns of the lateral ventricles. There may also be restricted diffusion within the CSF space within the posterior fossa. There is a 7 mm focus of restricted diffusion within the periventricular left frontal lobe on axial image 17 of 27. There is also a 7 mm small focus of restricted diffusion within the left parietal lobe on image 18. These are hypointense on the ADC map. Ventricular system is stable in size from earlier exams. Of note, there is extensive marrow replacement with associated enhancement within the skull base, most evident on the T1-weighted sequences. This corresponds to bony erosion shown by CT. This enhancing soft tissue may originate from the nasopharynx. This includes erosion of the clivus and likely involves the bilateral foramen lacerum. No acute intracranial hemorrhage, midline shift or mass effect is present. White matter T2 hyperintense foci suggest small vessel disease. There is no intracranial mass. No leptomeningeal enhancement is identified on the postcontrast sequences. Large bilateral mastoid effusions are present. IMPRESSION: 1. Small amount of layering material which demonstrates restricted diffusion wit hin the occipital horns of the lateral ventricles. No associated leptomeningeal enhancement. This finding is nonspecific but an infectious process such as meningitis is the diagnosis of exclusion. Neoplastic or traumatic etiology is within the differential but considered less likely. This could be correlated with CSF analysis. Findings will be called/faxed to the ordering provider at time of dictation. 2. Marrow replacement with associated enhancement within the skull base. Associated soft tissue thickening and enhancement within the nasopharynx. The findings are highly suggestive of a neoplastic etiology such as nasopharyngeal carcinoma. Associated bilateral mastoid effusions related to eustachian tube obstruction. ENT consultation is recommended. 3. A few suspected small acute infarcts measuring up to 7 mm. ACT 112: Negative or not required by law. Electronically signed by: Prince Paul M.D. 08/18/2024 2:23 PM Head CTA 08/18/24 16:04 Clinical history: Stroke Technique: Axial computed tomography images were obtained of the brain after the administration of intravenous contrast according to the CT angiogram protocol Findings: No definite stenosis or aneurysm is seen of the anterior, middle, or posterior cerebral artery circulations. The visualized vertebral arteries and the basilar artery appear unremarkable Impression: No definite stenosis or aneurysm of the intracranial arteries Electronically signed by Ranjan Blackwood 08-18-2024 6:26 PM Neck CTA 08/18/24 16:04 Clinical history: Stroke Technique: Axial computed tomography images were obtained of the neck after the administration of intravenous contrast according to the CT angiogram protocol Findings: No stenosis is seen of the common carotid arteries bilaterally. There is mild plaque within the left carotid bulb, without stenosis. The remainder of the internal carotid arteries appear patent bilaterally. No stenosis of the external carotid arteries is seen The vertebral arteries are patent bilaterally with no significant stenosis seen. The visualized thoracic aorta appears unremarkable There is a right pleural effusion Impression: 1. No definite stenosis of the neck arteries 2. Right pleural effusion Electronically signed by Ranjan Blackwood 08-18-2024 6:27 PM Hospital Course (1) Giant cell arteritis: (2) Elevated erythrocyte sedimentation rate: (3) Nasopharyngeal carcinoma: (4) CVA (cerebral vascular accident): (5) Acute confusion: (6) Diverticulitis: Plan Patient was admitted and treated for Giant Cell Arteritis - plan was slow taper of prednisone outpatient. Patient then acutely worsened prompting ED visit and subsequent admission for metabolic encephalopathy, deconditioning, and sepsis likely GI source. During hospital stay had acute episode of fever (38.6 C) and respiratory distress w/ O2Sats down into the 70s. This was likely due to an aspiration event. 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 Associated soft tissue thickening and enhancement within the nasopharynx. The findings are highly suggestive of a neoplastic etiology such as nasopharyngeal carcinoma" -Findings discussed with ENT on-call provider who recommended transfer for neurosurgery evaluation -Case discussed with [facility], patient will be accepted by medicine team with neurosurgery, ENT consults after transfer -Currently awaiting transfer Acute CVA -Increased somnolence and pupillary change prompted repeat imaging of head on 08/18 -Brain MRI showed "A few suspected small acute infarcts measuring up to 7 mm" on 08/18 incidentally -Has had increased somnolence for several days, pupil asymmetry noted on exam this a.m. -Telestroke completed, recommended CTA head/neck and aspirin given rectally -Recommended transfer as planned Aspiration Pneumonitis/Pneumonia - After discussion with family, with nutritional challenges modified diet could be detrimental to nutritional status. - Consider permissive aspiration as worsening PO will negatively impact overall prognosis. aspiration precautions (though no aspiration noted on swallow study) speech consult --> noted mild to moderate dysphagia w/ slow, prolonged chewing and slowed tongue motion diet --> texture: minced and moist Nausea vomiting/constipation - One episode of diarrhea on 08/17 after more than 5 days without BM - Miralax, suppositories and enema completed without success, manual disimpaction was marginally successful on 08/17 - C. diff stool test negative, although multiple family members currently have norovirus - anti-emetics PRN Sepsis likely GI source - Patient did initially meet sepsis criteria with leukocytosis, tachycardia, and fever. Treated empirically with IVF and antibiotics. - CT with signs of diverticulitis at the splenic flexure. - Pain control with Dilaudid 0.25, 0.5 mg IV. We were treating with Unasyn 08/09- 08/11. Acute change in respiratory status and new fever with concern for aspiration pneumonitis prompted switching to Vanc/Zosyn. Repeat BCx drawn. - Blood Cx (08/08), no growth after 5 days; Blood Cx (08/11), no growth after 48 hrs Antibiotics- deescalated to Zosyn 08/12, transitioned to Unasyn 08/14-08/17 - Increased leukocytosis and fever on 08/18, CT A/P did not show acute changes - Started Vancomycin and Cefepime on 08/18 due to progressive symptoms and new fever Delirium superimposed on dementia Most likely delirium on baseline dementia d/t dehydration and/or infection. - Generally clears with time. 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 Resume home meds on d/c - increased glargine from 5 U to 7 U, daily - could consider Novolin-N, an intermediate-acting insulin to match hyperglycemia induced by prednisone Atrial flutter - Rate controlled on metoprolol. Continue metoprolol succinate, 25 mg, PO, daily - Added Eliquis, 5 mg, PO, BID HTN On lisinopril and amlodipine at home. Holding amlodipine as recently started metoprolol 25 mg succinate. - Continue lisinopril, 10 mg, PO, daily; metoprolol succinate, 25 mg, PO, daily #BEATRIZ - likely in the setting of dehydration and mildly elevated CK. Has since resolved. #Aphthous stomatitis- resolved. If recurs rec dental paste with triamcinolone in [place] #Mastoiditis/chronic sinusitis - completed course of abx 08/03 Code status: DNR/DNI DVT ppx: Eliquis started 08/12 FENGI: speech eval - minced and moist, video swallow 08/15 [place]po: [place] [facility] [place] Time Total Time Spent Total Time Spent (In Minutes): Total attending time 65 minutes Total Time Includes: Examination of the Patient, Discharge Planning, Communication With Other Providers and Other Discharge Plan Discharge Items Patient Disposition: Transfer Acute Care Hospital Reason For Visit: RHABDO, BEATRIZ, DIVERTICULITIS, GCA/ PMR Discharge Diagnosis: Suspected nasopharyngeal carcinoma, Acute CVA Activity: Per Instructions section Non-emergency contact: Primary Care Provider Call non-emergency contact if: you have any medication questions and your symptoms worsen Follow-up/Referrals: Acosta West MD [Primary Care Provider] - Diet: Carb Consistent or DM2 Diet Texture: Mechanical soft (ground) Addtl Attending Provider Instructions: Patient was admitted and treated for Giant Cell Arteritis - plan was slow taper of prednisone outpatient. Patient then acutely worsened prompting ED visit and subsequent admission for metabolic encephalopathy, deconditioning, and sepsis likely GI source. During hospital stay had acute episode of fever (38.6 C) and respiratory distress w/ O2Sats down into the 70s. This was likely due to an aspiration event. 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 Associated soft tissue thickening and enhancement within the nasopharynx. The findings are highly suggestive of a neoplastic etiology such as nasopharyngeal carcinoma" -Findings discussed with ENT on-call provider who recommended transfer for neurosurgery evaluation -Case discussed with [facility], patient will be accepted by medicine team with neurosurgery, ENT consults after transfer -Currently awaiting transfer Acute CVA -Increased somnolence and pupillary change prompted repeat imaging of head on 08/18 -Brain MRI showed "A few suspected small acute infarcts measuring up to 7 mm" on 08/18 incidentally -Has had increased somnolence for several days, pupil asymmetry noted on exam this a.m. -Telestroke completed, recommended CTA head/neck and aspirin given rectally -Recommended transfer as planned Aspiration Pneumonitis/Pneumonia - After discussion with family, with nutritional challenges modified diet could be detrimental to nutritional status. - Consider permissive aspiration as worsening PO will negatively impact overall prognosis. aspiration precautions (though no aspiration noted on swallow study) speech consult --> noted mild to moderate dysphagia w/ slow, prolonged chewing and slowed tongue motion diet --> texture: minced and moist Nausea vomiting/constipation - One episode of diarrhea on 08/17 after more than 5 days without BM - Miralax, suppositories and enema completed without success, manual disimpaction was marginally successful on 08/17 - C. diff stool test negative, although multiple family members currently have norovirus - anti-emetics PRN Sepsis likely GI source - Patient did initially meet sepsis criteria with leukocytosis, tachycardia, and fever. Treated empirically with IVF and antibiotics. - CT with signs of diverticulitis at the splenic flexure. - Pain control with Dilaudid 0.25, 0.5 mg IV. We were treating with Unasyn 08/09- 08/11. Acute change in respiratory status and new fever with concern for as piration pneumonitis prompted switching to Vanc/Zosyn. Repeat BCx drawn. - Blood Cx (08/08), no growth after 5 days; Blood Cx (08/11), no growth after 48 hrs Antibiotics- deescalated to Zosyn 08/12, transitioned to Unasyn 08/14-08/17 - Increased leukocytosis and fever on 08/18, CT A/P did not show acute changes - Started Vancomycin and Cefepime on 08/18 due to progressive symptoms and new fever Delirium superimposed on dementia Most likely delirium on baseline dementia d/t dehydration and/or infection. - Generally clears with time. 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 Resume home meds on d/c - increased glargine from 5 U to 7 U, daily - could consider Novolin-N, an intermediate-acting insulin to match hyperglycemia induced by prednisone Atrial flutter - Rate controlled on metoprolol. Continue metoprolol succinate, 25 mg, PO, daily - Added Eliquis, 5 mg, PO, BID HTN On lisinopril and amlodipine at home. Holding amlodipine as recently started metoprolol 25 mg succinate. - Continue lisinopril, 10 mg, PO, daily; metoprolol succinate, 25 mg, PO, daily #BEATRIZ - likely in the setting of dehydration and mildly elevated CK. Has since resolved. #Aphthous stomatitis- resolved. If recurs rec dental paste with triamcinolone in [place] #Mastoiditis/chronic sinusitis - completed course of abx 08/03 Code status: DNR/DNI DVT ppx: Eliquis started 08/12 FENGI: speech eval - minced and moist, video swallow 08/15 [place] [facility] [place] Studies at Discharge: No Stand-Alone Forms: [facility] Skilled Items Patient informed of condition?: Yes DNR: Yes Discharge Level of Care: Other Communicable Disease: No Discharge Prognosis: Deteriorating Lines: Peripheral IV Urinary Catheter: No Medications and DC Order Prescriptions: New Eliquis 5 mg Tablet 5 mg PO BID Qty: 0 0RF atorvastatin 40 mg Tablet 40 mg PO QAM Qty: 0 0RF acetaminophen [Tylenol Extra Strength] 500 mg Tablet 1,000 mg PO Q8H PRNQty: 0 0RF lisinopril 10 mg Tablet 10 mg PO QAM Qty: 0 0RF metoprolol succinate 25 mg Tablet Extended Release 24 Hr 25 mg PO QAM Qty: 0 0RF diclofenac sodium [Voltaren Arthritis Pain] 1 % Gel 2 g EXT QID Qty: 0 0RF sennosides [Senokot] 8.6 mg Tablet 8.6 mg PO QAM Qty: 0 0RF insulin glargine [Lantus U-100 Insulin] 100 unit/mL Solution 7 unit subcut DAILY Qty: 0 0RF polyethylene glycol 3350 [Miralax] 17 gram Powder In Packet 17 g PO BID Qty: 0 0RF pantoprazole 40 mg Tablet,Delayed Release (Dr/Ec) 40 mg PO DAILY Qty: 0 0RF ondansetron HCl (PF) 4 mg/2 mL Solution 4 mg IV Q6H PRNQty: 0 0RF nystatin 100,000 unit/mL Suspension 5 ml PO QID Qty: 0 0RF prednisone 50 mg Tablet 50 mg PO DAILY Qty: 0 0RF ketoconazole 2 % Cream 1 applic EXT TID PRNQty: 0 0RF Discontinued fluticasone propionate 50 mcg/actuation spray,suspension 1 spray intranasal DAILY PRN (Reason: Congestion) Rx Instructions: administer into each nostril donepezil 10 mg tablet 10 mg PO HS Qty: 90 3RF ketoconazole 2 % cream 1 applic topical DAILY PRN (Reason: Skin Irritation) multivitamin [Multiple Vitamins] Tablet 1 tab PO DAILY aspirin 81 mg tablet,delayed release (DR/EC) 81 mg PO DAILY lisinopril 10 mg tablet 10 mg PO DAILY Januvia 50 mg tablet 50 mg PO DAILY azelastine 137 mcg (0.1 %) spray,non-aerosol 2 spray intranasal BID Qty: 30 2RF Rx Instructions: administer into each nostril ipratropium bromide 42 mcg (0.06 %) spray,non-aerosol 2 spray intranasal TID Qty: 15 0RF Rx Instructions: administer into each nostril famotidine 40 mg tablet 40 mg PO HS omega-3 fatty acids 1,000 mg Capsule 2,000 mg PO DAILY amlodipine [Norvasc] 5 mg Tablet 5 mg PO QAM Qty: 30 0RF prednisone 50 mg Tablet 50 mg PO DAILY Qty: 14 0RF Rx Instructions: Will need taper after re-evaluation for GCA amoxicillin-pot clavulanate 875-125 mg Tablet 1 tab PO BIDM Qty: 7 0RF sodium chloride 1,000 mg Tablet,Soluble 1,000 mg PO TID Qty: 90 0RF First - Mouthwash Blm [Magic Mouthwash] 5 ml PO Q12H PRN (Reason: mouth pain) Qty: 100 0RF Discharge Orders: Discharge Order (Routine); Ordered 08/18/24 Ordered By: Barrington Mcege Admission Data Admit Date/Time: 08/08/24 21:23 Attending Provider: Laly Serrano Admit Provider: Kristofer Ayoub Primary Care Provider: [place] Other Providers: Kristofer Ayoub; [place],[facility]; Willie Hood Supervising Physician Co-Signing Physician Notes I personally examined the patient and verified aguilar points of history and exam, discussed case, and agree with decision making and plan documented by Dr. Martin. Patient is a 83-year-old male with past medical history pertinent for vascular parkinsonism, type 2 diabetes, hypertension, JANET, cognitive impairment, chronic sinusitis, and sensorineural hearing loss on admission for sepsis in setting of acute diverticulitis in addition to BEATRIZ and rhabdomyolysis. Patient had fever overnight, blood cultures were initiated, cefepime and vancomycin restarted. Emergent head CT ordered today for dilated and nonreactive pupil on the right revealing abnormal nasopharyngeal retropharyngeal soft tissue thickening with associated erosion to clindamycin skull base suspicious for neoplastic process. ENT consulted but not in hospital. 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 [facility]. Patient was previously admitted from 07/23 - 07/31/24 where he was diagnosed with giant cell arteritis based off CT findings and placed on prednisone 50 mg daily. On 07/21/2024, brain MRI that showed fluid in the mastoid air cells representing mastoiditis and mild paranasal sinus disease. Patient was also treated with IV Unasyn and transitioned to Augmentin for 3 week course. Neck CTA that showed circumferential rind of soft tissue density surrounding bilateral distal common carotid and cervical ICAs in addition to a suggestive of mild erosive changes along the abutting clivus. Patient follows outpatient with ENT and was recommended to have further evaluation outpatient. Resident Activity Tracking Resident Involvement: Resident Care Provided Care Provided: [facility]
[2024-08-18] MEDS ORDERED: STROKE PATIENT DISCHARGE STA (19:26)
[2024-08-18] MEDS ORDERED: PIPERACILLIN/TAZOBACTAM 4.5 GM/100 ML BAG IV SCH (20:00)
[2024-08-18 23:43] VITALS: BP 134/79; PULSE 92; RESP 20; TEMP 98.4; O2SAT 95
[2024-08-19] MEDS ORDERED: VANCOMYCIN HCL 1,500 MG in SODIUM CHLORIDE 0.9% 500 ML IV SCH (09:00)
[2024-08-19] MEDS ORDERED: ATORVASTATIN 40 MG TAB PO SCH (09:00)
--- NOTE | 2024-08-21 08:38 | Coding Query ---
PRESENT ON ADMISSION QUERY To promote full compliance with coding requirements relating to pateint care, physician participation is requested in all cases of blanket binder uncertainty. Please assist us with the question(s) below: Please place an X within the parenthesis (x). The following diagnosis(es) listed in this patient's medical record require physician assistance to determine if they were present on admission (POA) or not. Please advise for each diagnosis whether it was present on admission, not present on admission, or if it was clinically undetermined. 1. Stroke ( ) Present On Admission ( X) Not Present On Admission ( ) Clinically Undetermined Thank you Con Boland [employer] [facility] *Definition of the present on admission (POA)-Present on admission is defined as present at the time the order for inpatient admission occurs. Conditions that develop during an outpatient encounter prior to a written order for inpatient admission (including emergency department, observation, or outpatient surgery) are considered present on admission. THERESED
== END 2024-08-19 01:12 | disposition short-term general hospital (02) | DRG 871 ==
LOC: ED 17:06 → 2E 21:23 → SUATTDRO 21:23 → 2E 22:49 → 3W 08-13 13:37 → 2E 08-18 14:44